=== PATIENT | female | born 1990 ===

== ENCOUNTER 2021-01-29 14:33 | Emergency (ER) | payer OTHER, SELFPAY ==
[2021-01-29 15:18] VITALS: BP 120/59; PULSE 78; RESP 18; TEMP 37.1; O2SAT 96; BMI 61.0
--- NOTE | 2021-01-29 16:52 | ED_ITS ---
HPI - Back Pain/Injury General Chief Complaint: Back Pain/Injury Stated Complaint: back pain Time Seen by Provider: 01/29/21 16:51 Source: patient Mode of arrival: ambulatory Limitations: no limitations History of Present Illness HPI Narrative: 31 y/o female with history of intermittent back pains and morbid obesity who is presenting with non-traumatic lower back pain for the last 3 days. 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 She reports after work 3 days ago she noticed lower back pain that is worse on the left and radiates down her buttock and upper left leg. She also reports some right sided middle thoracic back pain as well, worse with movement. She denies any specific injury. She has had pain like this before, it usually gets better with time. She took some aspirin without improvemnet. She denies weakness, numbness, tingling or incontinence. She denies fever or chills. No urinary symptoms. MD elicited complaint: back pain Pertinent past history: prior back pain Onset (ago): day(s) (3) Timing: intermittent Severity: moderate Similar Symptoms Previously: Yes Quality: spasming and throbbing Location: right flank, right lower back and left lower back Radiation: buttocks and left upper leg Exacerbating factors: movement and walking Relieving factors: immobilization Context: unknown Associated symptoms: difficulty walking and myalgias Treatments prior to arrival: heat therapy Related Data Previous Rx's Medication Instructions Recorded cyclobenzaprine 10 mg tablet 10 mg PO TID PRN #8 tab 01/29/21 ibuprofen 600 mg tablet 600 mg PO Q8H PRN #14 tab 01/29/21 lidocaine 5 % topical patch 1 patch TOPICAL DAILY #15 ea 01/29/21 (Lidoderm) Allergies Allergy/AdvReac Type Severity Reaction Status Date / Time aspirin Allergy Swelling Verified 01/29/21 15:18 Review of Systems Review of Systems: Constitutional: No Fever, No Chills Gastrointestinal: No Nausea, No Vomiting, No abdominal Pain Genitourinary: No Dysuria, No Urinary Frequency, No Hematuria Musculoskeletal: No joint pain, + Myalgias Skin: No Skin Lesions, No rash Neuro: No Weakness, No Numbness Heme/Lymph: No Bruising, No Lymphadenopathy Endocrine: No Polyuria, No Polydipsia PMFSH Social History Social History Advance Directives: No Advance Directives Information Provided: Yes Patient : No Physical Exam Vital Signs: Vital Signs: Last Vital Signs Temp 98.7 F 01/29/21 15:18 Pulse 78 01/29/21 15:18 Resp 18 01/29/21 15:18 BP 120/59 L 01/29/21 15:18 Pulse Ox 96 01/29/21 15:18 Body Mass Index 61.0 Appearance: Alert. Oriented X3. No acute distress. Eyes: Pupils equal, round and reactive to light. ENT: Pharynx normal. Neck: Normal inspection. CVS: Normal heart rate and rhythm. Pulses normal. Respiratory: No respiratory distress. Breath sounds normal. Abdomen: morbidly obese, Soft and non-tender. +BS x4 Back: normal inspection. Tenderness of the soft tissues of the bilateral lower lumbar area and left SI joint, right sided thoracic soft tissue tenderness, no CVA tenderness Skin: Skin warm and dry. Normal skin color. Normal skin turgor. No rashes. Extremities: No lower extremity edema. Neuro: Oriented X 3. No motor deficit. No sensory deficit. Normal DTRs. Normal gait Course Course Course Narrative: 31 yo morbidly obese female (BMI 61) presenting with non- traumatic lower back pain, acute on chronic. She has no red flag symptoms of LBP. She also has some mild right flank/right thoracic pain, most likely muscular as well. No urinary symptoms, fever, chills or abdominal pain. Will check UA. Reevaluation(s) Reevaluation #1: UA with 1+ blood. She is getting her menses. Doubt kidney stone. No infection on UA. She is stable for d/c home with treatment for muscular back pain. She was encouraged to f/u with PCP. MDM - Back Pain/Injury Lab Data Labs: Lab Results 01/29/21 Range/Units 17:09 Urine Color YELLOW Urine Appearance CLEAR Urine pH 7.5 (5.0-8.0) Ur Specific [place] 1.015 (1.005-1.025) Urine Protein NEG (NEG-TRACE) MG/DL Urine Glucose (UA) NEG (NEG) MG/DL Urine Ketones NEG (NEG) MG/DL Urine Blood 1+ H (NEG) Urine Nitrite NEG (NEG) Ur Leukocyte Esterase NEG (NEG) Urine RBC 1-4 (0) /HPF Urine WBC 0-2 (0-4) /HPF Ur Squamous Epith Cells TRACE /LPF Urine Bacteria NONE /LPF Urine Yeast TRACE /HPF Discharge Plan Discharge Clinical Impression: Strain of lumbar region Qualifiers: Encounter type: initial encounter Qualified Code(s): S39.012A - Strain of muscle, fascia and tendon of lower back, initial encounter Patient Disposition: Home, Self-Care Instructions: Low Back Strain (ED), Lower Back Exercises (ED) Additional Instructions: Your pain is most likely due muscle strain and spasm. No bending, lifting or twisting. Use ice several times per day for 20 minutes at a time for the next 48 hours and then change to heat. Take medications as prescribed to help with pain and discomfort. Follow up with your Primary Care Doctor this week. If your pain worsens, if you develop new numbness, tingling, weakness, loss of function or incontinence call 911 or come back to the ER right away for evaluation. Prescriptions: New cyclobenzaprine 10 mg tablet 10 mg PO TID PRN (Reason: muscle spasm) Qty: 8 RF: 0 ibuprofen 600 mg tablet 600 mg PO Q8H PRN (Reason: pain) Qty: 14 RF: 0 lidocaine [Lidoderm] 5 % adhesive patch,medicated 1 patch topical DAILY Qty: 15 RF: 0 Stand Alone Forms: Work/School Release Interventions: ED Discharge Assessment Last Done: 01/29/21 18:10 Discharge Date/Time: 01/29/21 18:12
[2021-01-29 17:26] LABS: Glucose Urine UA NEG (NEG); Leukocyte Esterase Urine NEG (NEG); Nitrite Urine NEG (NEG); PH 7.5 (5.0-8.0); Specific Gravity - Urine 1.015 (1.005-1.025); UACC Culture Trigger NO; Urine Blood 1+ (NEG); Urine Ketones NEG (NEG); Urine Protein NEG (NEG-TRACE)
[2021-01-29 17:32] LABS: Appearance Urine CLEAR; Color Urine YELLOW
[2021-01-29 17:51] LABS: Squamous Epithelial Cell Urine TRACE /LPF; WBC Urine 0-2 /HPF (0-4)
== END 2021-01-29 18:12 | disposition home or self-care (01) ==
PROVIDERS: Emergency Provider Emergency Medicine
DX: S39.012A Strain of muscle, fascia and tendon of lower back, initial encounter (principal); X50.3XXA Overexertion from repetitive movements, initial encounter; Y93.89 Activity, other specified; Y92.513 Shop (commercial) as the place of occurrence of the external cause; Y99.0 Civilian activity done for income or pay
CPT/HCPCS: 81001; 99282; 99283

== ENCOUNTER → 2021-06-03 07:53 | Outpatient (BNVA) | payer OTHER, SELFPAY | PROVIDERS: Visit Provider Physician Assistant | DX: E66.01 Morbid (severe) obesity due to excess calories (principal); Z68.44 Body mass index [BMI] 60.0-69.9, adult | CPT/HCPCS: 99202 ==

== ENCOUNTER 2021-06-13 07:59 | Outpatient (REF) | payer OTHER, SELFPAY ==
[2021-06-13 09:55] LABS: Basophils Percent Auto 0.4 % (0-2); Eosinophils Absolute Auto 0.5 X10*3/uL (0.0-0.4); Eosinophils Percent Auto 5.5 % (0-4); Hematocrit 39.4 % (37.0-47.0); Hemoglobin 13.3 g/dl (12.0-16.0); Imm Gran Abs Auto 0.02 X10*3/uL (0.00-0.03); Imm Gran Pct Auto 0.2 % (0.0-0.4); Lymphocytes Percent Auto 21.3 % (20-40); MANUAL DIFF FLAG SCAN; Mean Corpuscular HGB Conc 33.8 g/dl (31.0-35.0); Mean Corpuscular Hemoglobin 28.6 pg (27.0-33.0); Mean Corpuscular Volume 84.7 fL (80.0-98.0); Monocytes Absolute Auto 0.5 X10*3/uL (0.1-1.2); Monocytes Percent Auto 5.5 % (2-11); Neutrophils Absolute Auto 6.2 x10*3/uL (2.0-8.3); Neutrophils Percent Auto 67.1 % (45-73); PLT CLUMP 1; Red Blood Count 4.65 X10*6/uL (4.20-5.50); SCAN SMEAR FLAG 1
[2021-06-13 09:56] LABS: White Blood Count 9.3 X10*3/uL (4.8-10.8)
[2021-06-13 10:08] LABS: Estimated Average Glucose 126 mg/dL; Hemoglobin A1C 149.2182 umol/L
[2021-06-13 10:17] LABS: SLIDE REVIEW VERIFIED
[2021-06-13 10:18] LABS: Alanine Aminotransferase 33 U/L (0-31); Alkaline Phosphatase 61 U/L (39-117); Anion Gap 10 (12-20); Aspartate Amino Transferase 22 U/L (5-31); Bilirubin Total 0.7 mg/dL (0.0-1.0); Blood Urea Nitrogen 16 mg/dL (9-16); C Reactive Protein 3.72 mg/dL (< or = 0.50); Calcium 9.6 mg/dL (8.4-10.2); Carbon Dioxide 26 mmol/L (22-29); Chloride 106 mmol/L (96-108); Cholesterol 163 mg/dL; Estimated Glomerular Filt Rate > 60; Glucose Random 109 mg/dL (60-115); HDL Cholesterol 38 mg/dL; Iron 50 mcg/dL (30-160); LDL Cholesterol Calculated 108 mg/dl; Percent Iron Saturation 16 % (15-50); Potassium 4.1 mmol/L (3.3-5.1); Sodium 138 mmol/L (135-145); Total Iron Binding Capacity 311 mcg/dL (228-428); Total Protein 8.3 g/dL (6.5-8.0); Triglycerides 89 mg/dL; Unsaturated Iron Binding 261 ug/dL
[2021-06-13 10:36] LABS: HBsAGNum1 0.11 S/CO (0.00-0.99); HIV AB/AG Nonreactive (Nonreactive); HIV Num 1 0.08 S/CO (0.00-0.99); Hepatitis B Surface Antigen Negative (Negative); ~HepC Num1 0.15 S/CO (0.00-0.79); ~Hepatitis C Antibody Nonreactive (Nonreactive)
[2021-06-13 10:42] LABS: Ferritin 161 ng/mL (10-122); HCG Quantitative < 2 mIU/mL; Insulin 72 uU/mL (2-29); TSH reflex Free T4 1.85 uIU/mL (0.32-4.0); TSH reflex Free T4 1.89 uIU/mL (0.32-4.0); Vitamin D 25-OH Total 19.5 ng/mL (>30)
[2021-06-13 10:52] LABS: Folate 19.3 ng/mL (> or = 4.0); Vitamin B12 665 pg/mL (200-900)
[2021-06-13 15:17] LABS: CT PCR NOT DETECTED (Not Detect.); NG PCR NOT DETECTED (Not Detect.)
[2021-06-14 08:38] LABS: Syphilis Screen Nonreactive (Nonreactive)
[2021-06-14 08:41] LABS: BV Int Neg Control Negative (Negative); BV Int Pos Control Positive (Positive)
[2021-06-17 13:32] LABS: Calcium (PTHI) 9.6 mg/dL (8.6-10.2); PTHI 26 pg/mL (14-64)
[2021-06-18 02:11] LABS: Zinc 69 mcg/dL (60-130)
[2021-06-18 15:52] LABS: Testosterone, Free 3.6 pg/mL (0.1-6.4); Testosterone, Total 20 ng/dL (2-45)
[2021-06-18 16:01] LABS: Vitamin B1 7 nmol/L (8-30)
[2021-06-19 00:42] LABS: Vitamin A 40 mcg/dL (38-98)
[2021-06-19 08:51] LABS: HPV mRNA E6/E7 rflx Not Detected (Not Detected)
== END 2021-06-13 08:00 | disposition home or self-care (01) ==
LOC: HO.LAB 07:59
PROVIDERS: Physician Assistant; Visit Provider Obstetrics & Gynecology
DX: Z01.818 Encounter for other preprocedural examination (principal); Z01.411 Encounter for gynecological examination (general) (routine) with abnormal findings; Z11.51 Encounter for screening for human papillomavirus (HPV); Z11.4 Encounter for screening for human immunodeficiency virus [HIV]; E66.01 Morbid (severe) obesity due to excess calories; N93.9 Abnormal uterine and vaginal bleeding, unspecified; L68.0 Hirsutism; N76.0 Acute vaginitis; N84.1 Polyp of cervix uteri
CPT/HCPCS: 36415; 57500; 80053; 80061; 82306; 82607; 82728; 82746; 83036; 83498; 83525; 83540; 83970; 84402; 84403; 84425; 84443; 84590; 84630; 84702; 85025; 86140; 86780; 86803; 87340; 87389; 87480; 87491; 87510; 87591; 87624; 87660; 88142; 88305; 99202

== ENCOUNTER → 2021-06-19 08:15 | Outpatient (BNVA) | payer OTHER, SELFPAY | PROVIDERS: Visit Provider Dietitian, Registered | DX: E66.01 Morbid (severe) obesity due to excess calories (principal) | CPT/HCPCS: 97802 ==

== ENCOUNTER 2021-06-28 | Outpatient (REF) | payer OTHER, SELFPAY ==
[2021-07-01 14:24] LABS: H Pylori Breath Test Negative (Negative)
== END 2021-06-28 00:01 | disposition home or self-care (01) ==
LOC: HO.LNP
PROVIDERS: Visit Provider Physician Assistant
DX: Z01.818 Encounter for other preprocedural examination (principal); E66.01 Morbid (severe) obesity due to excess calories
CPT/HCPCS: 83013

== ENCOUNTER 2021-06-28 08:56 | Outpatient (REF) | payer OTHER, SELFPAY ==
--- NOTE | ~2021-06-28 | XR_ITS ---
EXAMINATION: XR CHEST CLINICAL INFORMATION: Z01.818 - Encounter for other preprocedural examination. Bariatric service evaluation. COMPARISON: None TECHNIQUE: 2 views of the chest were obtained. FINDINGS: The lungs are clear. There is no airspace consolidation or groundglass opacity or effusion. The costophrenic sulci are well-defined. The heart is normal in size and the hilar and mediastinal contours are normal. There is mild curvature at thoracolumbar spine. XR/XR chest 2V IMPRESSION: Unremarkable examination.
== END 2021-06-28 08:57 | disposition home or self-care (01) ==
LOC: HO.XRAY 08:56
PROVIDERS: Visit Provider Physician Assistant
DX: Z01.818 Encounter for other preprocedural examination (principal); E66.01 Morbid (severe) obesity due to excess calories; E55.9 Vitamin D deficiency, unspecified; Z68.44 Body mass index [BMI] 60.0-69.9, adult; Z71.3 Dietary counseling and surveillance
CPT/HCPCS: 71046; 99211; 99212

== ENCOUNTER 2021-07-03 08:49 | Outpatient (REF) | payer OTHER, SELFPAY ==
--- NOTE | ~2021-07-03 | US_ITS ---
EXAMINATION: US PELVIS TRANSVAGINAL CLINICAL INFORMATION: Abnormal uterine bleeding with irregular menstrual periods. Vaginal bleeding. COMPARISON: None TECHNIQUE: Transcutaneous and transvaginal pelvic ultrasound. Transvaginal scanning was performed after voiding to better evaluate the endometrium and adnexa. FINDINGS: The uterus measures 8.1 x 4.1 x 4.7 cm. The uterus is anteflexed. Cervical nabothian cysts are present. The uterine contour is smooth. The endometrium is prominent and measures 1.4 cm. The endometrium has a heterogeneous appearance without focal polyp identified. No focal abnormalities within the myometrium. The right ovary is not identified. No suspicious right adnexal masses appreciated. The left ovary measures 2.7 x 1.3 x 1.5 cm. The calculated left ovarian volume is approximately 2.7 mL. No left adnexal suspicious findings. Normal vascularity. No significant free pelvic fluid. US/US pelvic and transvaginal IMPRESSION: Thickened endometrium with a heterogeneous appearance but no focal polyp identified.
== END 2021-07-03 08:50 | disposition home or self-care (01) ==
LOC: HO.HMGCX 08:49
PROVIDERS: Visit Provider Obstetrics & Gynecology
DX: N93.9 Abnormal uterine and vaginal bleeding, unspecified (principal)
CPT/HCPCS: 76830; 76856

== ENCOUNTER 2021-07-04 08:35 | Outpatient (REF) | payer OTHER, SELFPAY ==
[2021-07-04 10:09] LABS: Hematocrit 40.9 % (37.0-47.0); Hemoglobin 13.5 g/dl (12.0-16.0); Mean Corpuscular Hemoglobin 28.1 pg (27.0-33.0); Mean Corpuscular Volume 85.2 fL (80.0-98.0); Mean Platelet Volume 10.5 fL (9.4-12.3); Platelet Count 265 X10*3/uL (160-400); Red Cell Distribution Width 14.8 % (11.0-16.0); White Blood Count 7.9 X10*3/uL (4.8-10.8)
[2021-07-05 06:37] LABS: DHEA Sulfate 88 mcg/dL (23-266)
== END 2021-07-04 08:36 | disposition home or self-care (01) ==
LOC: HO.LAB 08:35
PROVIDERS: Visit Provider Obstetrics & Gynecology
DX: Z01.411 Encounter for gynecological examination (general) (routine) with abnormal findings (principal); L68.0 Hirsutism; N93.9 Abnormal uterine and vaginal bleeding, unspecified; N84.1 Polyp of cervix uteri; R87.615 Unsatisfactory cytologic smear of cervix
CPT/HCPCS: 36415; 82627; 85027; 88142; 99212

== ENCOUNTER 2021-07-16 08:15 | Outpatient (REF) | payer OTHER, SELFPAY ==
[2021-07-23 21:16] LABS: Cortisol Free, 24 Hr Urine 13.6 mcg/24 h (4.0-50.0); Creatinine, 24 Hr Urine 1.38 g/24 h (0.50-2.15); Total Volume, 24 Hr Urine 1725 mL
== END 2021-07-16 08:16 | disposition home or self-care (01) ==
LOC: HO.LNP 08:15
PROVIDERS: Visit Provider Obstetrics & Gynecology
DX: L68.0 Hirsutism (principal)
CPT/HCPCS: 82530

== ENCOUNTER 2021-07-17 11:40 | Outpatient (REF) | payer OTHER, SELFPAY | END 2021-07-17 11:41 | disposition home or self-care (01) | LOC: HO.LNP 11:40 | PROVIDERS: Visit Provider Obstetrics & Gynecology | DX: Z13.89 Encounter for screening for other disorder (principal) ==

== ENCOUNTER 2021-07-19 07:15 | Day surgery (SDC) | payer OTHER, SELFPAY ==
[2021-07-12 14:56] VITALS: BMI 61.0
--- NOTE | 2021-07-18 10:06 | HO.ANESPROP2 ---
Documented by User: Philomena Baxter NP 07/18/21 10:08 HPI - Anesthesia Eval Consult details Narrative: 31yo F for D&C Hysteroscopy,poss polypectomy,poss myomectomy PMFSH Active Problems Active Problems: All Active Problems (Updated 07/12/21 @ 14:56 by Hien Julien RN) Morbid obesity (Acute) Pre-op evaluation (Acute) Abnormal uterine bleeding (AUB) (Acute) Hirsutism (Acute) Vaginitis (Acute) Endocervical polyp (Acute) Vitamin D deficiency (Acute) Unsatisfactory cervical Papanicolaou smear (Acute) Past Medical History Medical History Medical history unknown Family History Family History Mother Diabetes Hypertension Seizures Liver problem Amputated left leg Father Diabetes Hypertension Liver problem Sister Diabetes Sister Diabetes Sister Diabetes Hypertension Surgical History Surgical History No history of previous surgery Social History Social History Alcohol intake: current Alcohol intake frequency: holidays/special occasions only Patient Tobacco Use Status: Never used Tobacco Advance Directives Information Provided: Yes (brochure mailed) Advance Directives on File: No Meds Allergies Allergy/AdvReac Type Severity Reaction Status Date / Time aspirin Allergy Swelling Verified 07/19/21 07:39 Exam Exam Date and Time: July 18, 2021 1006 Height,Weight and Vital Signs: Height 5 ft 5 in Weight 166.468 kg Pertinent Lab Results Pertinent Lab Results: Laboratory Tests 06/13/21 07/04/21 09:27 09:48 WBC 7.9 Hgb 13.5 Hct 40.9 Plt Count 265 Sodium 138 Potassium 4.1 Chloride 106 Carbon Dioxide 26 BUN 16 Creatinine 0.63 Assessment and Plan Assessment Anesthesia Assessment: Chart Reviewed Documented by User: Kelby Valentine MD 07/19/21 08:10 [facility] Past Medical History Medical History Medical history unknown Family History Family History Mother Diabetes Hypertension Seizures Liver problem Amputated left leg Father Diabetes Hypertension Liver problem Sister Diabetes Sister Diabetes Sister Diabetes Hypertension Family history of problems with anesthesia: No Surgical History Surgical History No history of previous surgery History of Problems with Anesthesia: No Social History Social History Alcohol intake: current Alcohol intake frequency: holidays/special occasions only Patient Tobacco Use Status: Never used Tobacco Advance Directives Information Provided: Yes (brochure mailed) Advance Directives on File: No Meds Allergies Allergy/AdvReac Type Severity Reaction Status Date / Time aspirin Allergy Swelling Verified 07/19/21 07:39 Exam Airway Mallampati Class: III TM Dist: >3cm Neck ROM: Full Assessment and Plan Assessment Anesthesia Assessment: Anesthesia Plan Discussed Final Anesthetic Review Family History of Problems with Anesthesia: No History of Problems with Anesthesia: No NPO: Yes ASA Class: III Final Preanesthetic Review: No Changes in Pt Med Stat, Meds/Allgs Chart Reviewed, Consent Obtained/Reviewed and Anes Risks/Benef Reviewed Patient Risk: Intermediate Procedure Risk: Low Anesthetic Plan Anesthetic Plan: GA Disposition: Standard PACU
[2021-07-19 07:34] LABS: UPreg QC Valid YES; Urine Pregnancy NEGATIVE (NEGATIVE)
[2021-07-19 07:53] VITALS: BP 133/55; PULSE 91; RESP 16; TEMP 36.8; O2SAT 94
[2021-07-19] MEDS: Lactated Ringers 1,000 ML 100 ML IVCONT (08:08)
--- NOTE | 2021-07-19 08:46 | MHC.SHP ---
Pre-Procedural Eval Section A Date of Service: 07/19/21 The patient is an INPATIENT: No Changes since office visit: No Cold of Flu in the past 2 weeks, No New Medical Problems, No Changes in Medication and No Patient answered all questions The History & Physical has been completed within 30 days and I have reviewed it.: Yes Section B Chief Complaint: abnormal uterine and vaginal bleeding Allergies: Allergies Allergy/AdvReac Type Severity Reaction Status Date / Time aspirin Allergy Swelling Verified 07/19/21 07:39 Plan Diagnosis/Plan: Unchanged I have reviewed the history and physical and performed a pertinent physical examination on my patient. No changes have occurred unless specified.
--- NOTE | 2021-07-19 09:35 | P.BOP_ITS ---
Brief Operative Note Date of Service: 07/19/21 Pre-op diagnosis: Abnormal uterine bleeding Post-op diagnosis: same (Same plus normal uterine endocervical cavity) Procedure: Hysteroscopy D&C Surgeon: Octaviano Kan MD Anesthesia: MAC Was an Preschool Teacher'S Assistant used for this Procedure?: No Estimated blood loss (mL): 0 Pathology: other (Endometrial Scrapping. Polyp) Condition: stable Disposition: PACU
--- NOTE | 2021-07-19 09:36 | P.OP_ITS ---
Operative Note Operative Note Date of Service: 07/19/21 Narrative: Preop Diagnosis: Abnormal uterine bleeding Operation: Diagnostic Hysteroscopy, Dilataion & Curettage Post Op Diagnosis: Normal endometrial and endocervical cavity QBL: Minimal Anesthesia: MAC Surgeon: Octaviano Kan MD Building Code Administrator: None Complication: None Pathology: Endometrial Scrapings Procedure: The patient was put in the dorsal lithotomy position, scrubbed, and draped in the usual manner. A sterile speculum was inserted in the patient's vagina. The anterior lip of the cervix was grasped with a single tooth tenaculum. The cervix was dilated up to 5 mm, then the scope was inserted in the patient's uterus. Inspection revealed normal endometrial/endocervical cavity. The Myosure Reach device was used; sharp curettings was carried on retrieving moderate amount of tissues At the end of the procedure, all instruments were taken out of the patient uterine and vaginal cavity. The single tooth tenaculum was removed and homeostasis was assured using pressure, The patient tolerated the procedure well and was transferred to the PACU in a stable condition.
[2021-07-19 09:41] VITALS: BP 118/60; PULSE 96; RESP 20; TEMP 36.9; O2SAT 98
[2021-07-19 09:46] VITALS: BP 126/60; PULSE 92; RESP 20; O2SAT 97
[2021-07-19 09:51] VITALS: BP 120/68; PULSE 91; RESP 18; O2SAT 95
[2021-07-19 09:56] VITALS: BP 114/63; PULSE 95; RESP 20; O2SAT 96
[2021-07-19 10:11] VITALS: BP 109/57; PULSE 89; RESP 20; TEMP 36.7; O2SAT 97
== END 2021-07-19 10:45 | disposition home or self-care (01) ==
PROVIDERS: Nurse Practitioner; Visit Provider Obstetrics & Gynecology
PROC: 0UDB8ZZ Extraction of Endometrium, Via Natural or Artificial Opening Endoscopic (ICD-10-PCS; CPT 58558; principal; 2021-07-19 08:50)
DX: N93.9 Abnormal uterine and vaginal bleeding, unspecified (principal); N84.1 Polyp of cervix uteri; R87.615 Unsatisfactory cytologic smear of cervix; Z88.8 Allergy status to other drugs, medicaments and biological substances
CPT/HCPCS: 58558; 81025; 88305; J1100; J2250; J2405; J3010

== ENCOUNTER → 2021-07-22 08:12 | Outpatient (BNVA) | payer OTHER, SELFPAY | PROVIDERS: Visit Provider Physician Assistant ==

== ENCOUNTER 2021-07-23 08:23 | Outpatient (REF) | payer OTHER, SELFPAY ==
--- NOTE | ~2021-07-23 | FL_ITS ---
EXAMINATION: FL UPPER GI AIR-CONTRAST SERIES CLINICAL INFORMATION: Obesity. Preop. COMPARISON: None. TECHNIQUE: Routine upper GI air-contrast study was performed in upright and lying positions. FINDINGS: Following oral administration of thick barium and effervescent granules, there is normal propagation of bolus from the oral cavity through the pharynx and esophagus and into the stomach without any evidence of obstruction, narrowing or stricture. On placing patient supine and prone lying, the course, caliber and peristalsis of the stomach, gallbladder wall and the sweep are normal. There is moderate gastroesophageal reflux with a small sliding hiatal hernia. The mucosal pattern of the stomach, duodenal bulb and the sweep is normal. FLUOROSCOPY TIME: 1.2 minutes DOSE AREA PRODUCT: 46.834 uGy-m2 (microgray-meter squared) FL/FL upper GI series IMPRESSION: Moderate gastroesophageal reflux with small sliding hiatal hernia.
--- NOTE | ~2021-07-23 | US_ITS ---
EXAMINATION: US COMPLETE ABDOMEN WITH LIVER ELASTOGRAPHY CLINICAL INFORMATION: Obesity. Preop. COMPARISON: None. TECHNIQUE: Real-time imaging of the abdominal viscera. Noninvasive ultrasound liver fibrosis assessment is performed using Pascale ElastPQ point quantification shear wave elastography (2D-SWE) with a C5-2 MHz transducer. Multiple elastography samples are obtained. FINDINGS: PANCREAS: Normal. The visualized pancreatic head and body are normal in appearance. The remainder of the pancreas is obscured from visualization by the overlying bowel gas. ABDOMINAL AORTA: The proximal, middle, and distal aortic segments are normal in caliber. INFERIOR VENA CAVA: Visualized portions are normal. LIVER: The liver demonstrates normal size, contour and increased echogenicity. No focal lesion or intrahepatic biliary duct dilatation. The right lobe measures 16.4 cm in length. The left lobe measures 13.2 cm in length. Portal flow is hepatopedal. Shear wave liver elastography median stiffness is 1.55 m/s (reference: normal median stiffness is 1.3 m/s or less). IQR/median stiffness to assess sampling precision is 0.19 (reference: good quality data set is IQR/median stiffness of 0.15 or less). GALLBLADDER: Normal. The gallbladder is physiologically distended without evidence of stones, sludge, polyps, wall thickening or pericholecystic fluid. COMMON BILE DUCT: Normal in caliber measuring 0.3 cm in diameter. RIGHT KIDNEY: Normal. No hydronephrosis. No renal calculi or focal parenchymal lesions. The kidney measures 11.9 cm in maximum dimension. LEFT KIDNEY: Normal. No hydronephrosis. No renal calculi or focal parenchymal lesions. The kidney measures 10.6 cm in maximum dimension. SPLEEN: Normal. The spleen measures 10.5 cm in maximum dimension. FREE FLUID: None. US/US abdomen comp w elastography IMPRESSION: 1. Diffuse hepatic steatosis without focal lesion. 2. The rest of the abdominal ultrasound is unremarkable. 3. Liver elastography: Median liver stiffness 1.55 m/s suggestive of cACLD (ruled out). REFERENCE: Society of Radiologists in Ultrasound Liver Stiffness Thresholds (2019): LIVER STIFFNESS THRESHOLDS: *Liver Stiffness equal or less than 1.3 m/s: High probability of being normal. *Liver Stiffness less than 1.7 m/s: In the absence of other known clinical signs, rules out compensated advanced chronic liver disease. *Liver Stiffness 1.7-2.1 m/s: Suggestive of compensated advanced chronic liver disease but need further test for confirmation. *Liver Stiffness over 2.1 m/s: Rules in compensated advanced chronic liver disease. *Liver Stiffness over 2.4 m/s: Suggestive of clinically significant portal hypertension. QUALITY OF DATA SET: *IQR/Median value equal or less than 0.15 implies a quality data set. *IQR/Median value over 0.15 implies a poor quality data set. SIGNIFICANT CHANGE FROM PRIOR EXAM: Significant change if liver stiffness measurement is 10% or greater from prior exam. OTHER CONSIDERATIONS: The stage of liver fibrosis may be overestimated in the setting of acute hepatitis, liver inflammation, elevated liver function tests, hepatic vascular congestion, obstructive cholestasis, non-fasting state, and infiltrative diseases such as amyloidosis and lymphoma. In some patients with NAFLD, the liver stiffness thresholds for compensated advanced chronic liver disease may be lower. In causes other than viral hepatitis and NAFLD, liver stiffness thresholds are not well established.
--- NOTE | 2021-07-23 09:39 | ECG_ITS ---
Test Reason : OBESITY Blood Pressure : / mmHG Vent. Rate : 066 BPM Atrial Rate : 066 BPM P-R Int : 130 ms QRS Dur : 086 ms QT Int : 388 ms P-R-T Axes : 019 040 032 degrees QTc Int : 406 ms Normal sinus rhythm Normal ECG No previous ECGs available Referred By: Marilu Alcantar Electronically Signed By:Tomas Vazquez
== END 2021-07-23 08:24 | disposition home or self-care (01) ==
LOC: HO.US 08:23
PROVIDERS: Visit Provider Physician Assistant
DX: Z01.818 Encounter for other preprocedural examination (principal); E66.01 Morbid (severe) obesity due to excess calories
CPT/HCPCS: 74240; 76705; 76981; 93005

== ENCOUNTER → 2021-07-24 14:58 | Outpatient (BNVA) | payer OTHER, SELFPAY | PROVIDERS: Visit Provider Obstetrics & Gynecology ==

== ENCOUNTER 2021-07-25 11:42 | Outpatient (REF) | payer OTHER, SELFPAY ==
[2021-07-27 09:51] LABS: HPV mRNA E6/E7 rflx Not Detected (Not Detected)
== END 2021-07-25 11:43 | disposition home or self-care (01) ==
LOC: HO.LAB 11:42
PROVIDERS: Visit Provider Obstetrics & Gynecology
DX: R87.615 Unsatisfactory cytologic smear of cervix (principal)
CPT/HCPCS: 57454; 87624; 88142; 88305

== ENCOUNTER → 2021-07-29 08:11 | Outpatient (BNVA) | payer OTHER, SELFPAY | PROVIDERS: Referring Provider Physician Assistant; Visit Provider Dietitian, Registered | DX: E66.01 Morbid (severe) obesity due to excess calories (principal); Z68.43 Body mass index [BMI] 50.0-59.9, adult; N85.02 Endometrial intraepithelial neoplasia [EIN]; R87.615 Unsatisfactory cytologic smear of cervix | CPT/HCPCS: 97803; Q3014 ==

== ENCOUNTER → 2021-08-22 08:14 | Outpatient (BNVA) | payer OTHER, SELFPAY | PROVIDERS: Referring Provider Physician Assistant; Visit Provider Dietitian, Registered ==

== ENCOUNTER → 2021-09-09 11:15 | Outpatient (BNVA) | payer OTHER, SELFPAY | PROVIDERS: Visit Provider Physician Assistant | DX: E66.01 Morbid (severe) obesity due to excess calories (principal); Z68.43 Body mass index [BMI] 50.0-59.9, adult | CPT/HCPCS: 99212 ==

== ENCOUNTER → 2021-09-11 08:52 | Outpatient (BNVA) | payer OTHER, SELFPAY | PROVIDERS: Visit Provider Dietitian, Registered | DX: Z13.89 Encounter for screening for other disorder (principal) | CPT/HCPCS: 97803 ==

== ENCOUNTER → 2021-10-11 09:25 | Outpatient (BNVA) | payer OTHER, SELFPAY | PROVIDERS: Visit Provider Physician Assistant | DX: E66.01 Morbid (severe) obesity due to excess calories (principal); Z68.43 Body mass index [BMI] 50.0-59.9, adult | CPT/HCPCS: 99212 ==

== ENCOUNTER → 2021-10-16 07:51 | Outpatient (BNVA) | payer OTHER, SELFPAY | PROVIDERS: Visit Provider Surgery | DX: Z13.89 Encounter for screening for other disorder (principal) ==

== ENCOUNTER → 2021-11-08 08:46 | Outpatient (BNVA) | payer OTHER, SELFPAY | PROVIDERS: Visit Provider Surgery | DX: Z13.89 Encounter for screening for other disorder (principal) ==

== ENCOUNTER → 2021-11-15 08:13 | Outpatient (BNVA) | payer OTHER, SELFPAY | PROVIDERS: Visit Provider Surgery | DX: Z13.89 Encounter for screening for other disorder (principal) ==

== ENCOUNTER 2021-11-19 06:04 | Inpatient (IN) | payer OTHER, SELFPAY ==
[2021-11-12 10:03] VITALS: BMI 53.4
[2021-11-14 11:38] LABS: MANUAL DIFF FLAG NO
[2021-11-14 11:48] LABS: Basophils Percent Auto 0.4 % (0-2); Eosinophils Absolute Auto 0.6 X10*3/uL (0.0-0.4); Eosinophils Percent Auto 7.5 % (0-4); Hematocrit 41.4 % (37.0-47.0); Imm Gran Abs Auto 0.02 X10*3/uL (0.00-0.03); Imm Gran Pct Auto 0.2 % (0.0-0.4); Lymphocytes Absolute Auto 1.9 X10*3/uL (1.2-4.9); Lymphocytes Percent Auto 22.7 % (20-40); Mean Corpuscular HGB Conc 33.8 g/dl (31.0-35.0); Mean Corpuscular Volume 82.8 fL (80.0-98.0); Mean Platelet Volume 10.8 fL (9.4-12.3); Monocytes Absolute Auto 0.6 X10*3/uL (0.1-1.2); Monocytes Percent Auto 6.6 % (2-11); Neutrophils Absolute Auto 5.3 x10*3/uL (2.0-8.3); Neutrophils Percent Auto 62.6 % (45-73); Platelet Count 273 X10*3/uL (160-400); Red Cell Distribution Width 14.8 % (11.0-16.0); White Blood Count 8.5 X10*3/uL (4.8-10.8)
[2021-11-14 11:53] LABS: INTERNATIONAL NORM RATIO 1.2 (0.9-1.1); Prothrombin Time 13.9 SEC (9.9-13.0)
[2021-11-14 11:54] LABS: Estimated Average Glucose 103 mg/dL; Hemoglobin A1c % 5.2 %
[2021-11-14 11:55] LABS: Partial Thromboplastin Time 43.6 SEC (24.1-38.0)
[2021-11-14 12:12] LABS: Alanine Aminotransferase 42 U/L (0-31); Albumin Level 4.1 g/dL (3.5-5.0); Alkaline Phosphatase 63 U/L (39-117); Anion Gap 14 (12-20); Aspartate Amino Transferase 30 U/L (5-31); Bilirubin Total 0.8 mg/dL (0.0-1.0); Blood Urea Nitrogen 10 mg/dL (9-16); C Reactive Protein 4.03 mg/dL (< or = 0.50); Calcium 9.9 mg/dL (8.4-10.2); Carbon Dioxide 23 mmol/L (22-29); Chloride 104 mmol/L (96-108); Cholesterol 181 mg/dL; Creatinine Clr Calc Pharmacy 177.5; Estimated Glomerular Filt Rate > 60; Glucose Random 90 mg/dL (60-115); HDL Cholesterol 28 mg/dL; LDL Cholesterol Calculated 139 mg/dl; Potassium 4.5 mmol/L (3.3-5.1); Sodium 136 mmol/L (135-145); Total Protein 8.3 g/dL (6.5-8.0); Triglycerides 74 mg/dL
[2021-11-14 12:37] LABS: Insulin 25 uU/mL (2-29); TSH reflex Free T4 1.66 uIU/mL (0.32-4.0)
--- NOTE | 2021-11-16 12:57 | MHC.SHP ---
Pre-Procedural Eval Section A Date of Service: 11/16/21 The patient is an INPATIENT: Yes The History & Physical has been completed within 30 days and I have reviewed it.: Yes Section B Chief Complaint: obesity Relevant Family History (Specify if Yes): No Relevant Social History: None Present Medications: None Medical History: No relevant PMH History of Previous Operations: No relevant previous surgery Allergies: Allergies Allergy/AdvReac Type Severity Reaction Status Date / Time aspirin Allergy Swelling Verified 11/15/21 12:55 Review of Systems Sugical H&P ROS: Negative: Constitution, Cardiovascular, Respiratory, Neurological, Psychiatric, Hem-Onc, Allergic/Immunologic, Gastrointestinal, Genitourinary, Musculoskeletal, Integumentary, Endocrine and Eyes/Ears/Nose/Throat Exam Surgical H&P Exam: Normal: HEENT, Normal: Heart, Normal: Lungs, Normal: Extremities, Normal: Abdomen, Normal: Skin and Normal: Neurological Plan Diagnosis/Plan: Unchanged I have reviewed the history and physical and performed a pertinent physical examination on my patient. No changes have occurred unless specified.
--- NOTE | 2021-11-18 09:53 | P.CONAN_ITS ---
Documented by User: Philomena Baxter NP 11/18/21 09:54 HPI - Anesthesia Eval Consult details Narrative: 31yo F for Gastrectomy Sleeve,EGD,poss diaphragmatic hernia,poss ventral hernia,poss open, PMFSH Active Problems Active Problems: All Active Problems (Updated 11/12/21 @ 09:47 by Jahaira Valdivia RN) Morbid obesity (Acute) Pre-op evaluation (Acute) Abnormal uterine bleeding (AUB) (Acute) Hirsutism (Acute) Vaginitis (Acute) Endocervical polyp (Acute) Vitamin D deficiency (Acute) Unsatisfactory cervical Papanicolaou smear (Acute) EIN (endometrial intraepithelial neoplasia) (Acute) Prediabetes (Acute) GERD (gastroesophageal reflux disease) (Acute) Past Medical History Medical History (Updated 11/12/21 @ 09:47 by Jahaira Valdivia RN) Abnormal uterine bleeding (AUB) GERD (gastroesophageal reflux disease) Obese Prediabetes Family History Family History Mother Diabetes Hypertension Seizures Liver problem Amputated left leg Father Diabetes Hypertension Liver problem Sister Diabetes Sister Diabetes Sister Diabetes Hypertension Family history of problems with anesthesia: No Surgical History Surgical History (Updated 11/12/21 @ 09:34 by Jahaira Valdivia RN) History of hysteroscopy History of Problems with Anesthesia: No Social History Social History Are you a primary pharmacy customer care specialist to a significant other at home: No Do you presently have visiting nurse or other home services: No Alcohol intake: current Alcohol intake frequency: holidays/special occasions only Patient Tobacco Use Status: Never used Tobacco Use of substances other than those prescribed or required for medical reasons: No Have you been hit, kicked, punched, or otherwise hurt by someone within the past year? If so, by whom?: No Are you DNR?: No Advance Directives: No Advance Directives Information Provided: Yes (Mailed with pre-op instructions) Advance Directives on File: No Recently lost weight without trying: No How much weight loss: 34pounds or more Eating poorly because of decreased appetite: No Nutrition screen score: 4 Nutrition Risks: No Nutritional Risk Patient : No FDLMP: Irreg Bleeding : No Meds Allergies Allergy/AdvReac Type Severity Reaction Status Date / Time aspirin Allergy Swelling Verified 11/15/21 12:55 Exam Exam Date and Time: November 18, 2021 0953 Height,Weight and Vital Signs: Height 5 ft 5 in Weight 145.603 kg Pertinent Lab Results Pertinent Lab Results: Laboratory Tests 11/14/21 11/14/21 11/14/21 11:30 11:30 11:30 WBC 8.5 RBC 5.00 Hgb 14.0 Hct 41.4 MCV 82.8 MCH 28.0 MCHC 33.8 RDW 14.8 Plt Count 273 MPV 10.8 Immature Gran % (Auto) 0.2 Neut % (Auto) 62.6 Lymph % (Auto) 22.7 [place] % (Auto) 6.6 Eos % (Auto) 7.5 H Baso % (Auto) 0.4 Lymph # (Auto) 1.9 [place] # (Auto) 0.6 Eos # (Auto) 0.6 H Baso # (Auto) 0.0 Abs Immat Gran (auto) 0.02 Absolute Neuts (auto) 5.3 Absolute Nucleated RBC 0.000 Nucleated RBC % (auto) 0.0 PT 13.9 H INR 1.2 H APTT 43.6 H Sodium 136 Potassium 4.5 Chloride 104 Carbon Dioxide 23 Anion Gap 14 BUN 10 Creatinine 0.67 Estim Creat Clear Calc 177.5 Estimated GFR > 60 Random Glucose 90 Estimat Average Glucose Hemoglobin A1c % Insulin Level 25 Calcium 9.9 Total Bilirubin 0.8 AST 30 ALT 42 H Alkaline Phosphatase 63 C-Reactive Protein 4.03 H Total Protein 8.3 H Albumin 4.1 Triglycerides 74 Cholesterol 181 LDL Cholesterol, Calc 139 HDL Cholesterol 28 D TSH 1.66 Blood Type Antibody Screen 11/14/21 11/14/21 11:30 11:30 WBC RBC Hgb Hct MCV MCH MCHC RDW Plt Count MPV Immature Gran % (Auto) Neut % (Auto) Lymph % (Auto) [place] % (Auto) Eos % (Auto) Baso % (Auto) Lymph # (Auto) [place] # (Auto) Eos # (Auto) Baso # (Auto) Abs Immat Gran (auto) Absolute Neuts (auto) Absolute Nucleated RBC Nucleated RBC % (auto) PT INR APTT Sodium Potassium Chloride Carbon Dioxide Anion Gap BUN Creatinine Estim Creat Clear Calc Estimated GFR Random Glucose Estimat Average Glucose 103 Hemoglobin A1c % 5.2 Insulin Level Calcium Total Bilirubin AST ALT Alkaline Phosphatase C-Reactive Protein Total Protein Albumin Triglycerides Cholesterol LDL Cholesterol, Calc HDL Cholesterol TSH Blood Type O Negative Antibody Screen NEGATIVE Narrative Narrative: EKG 07/2021 Vent. Rate : 066 BPM ? ? Atrial Rate : 066 BPM ?? P-R Int : 130 ms? QRS Dur : 086 ms ? ? QT Int : 388 ms ? ? ? P-R-T Axes : 019 040 032 degrees ?? QTc Int : 406 ms ? Normal sinus rhythm Normal ECG No previous ECGs available Assessment and Plan Assessment Anesthesia Assessment: Chart Reviewed Final Anesthetic Review Family History of Problems with Anesthesia: No History of Problems with Anesthesia: No Documented by User: Ganesh Lester MD 11/19/21 07:15 [facility] Past Medical History Medical History (Updated 11/12/21 @ 09:47 by Jahaira Valdivia RN) Abnormal uterine bleeding (AUB) GERD (gastroesophageal reflux disease) Obese Prediabetes Family History Family History Mother Diabetes Hypertension Seizures Liver problem Amputated left leg Father Diabetes Hypertension Liver problem Sister Diabetes Sister Diabetes Sister Diabetes Hypertension Surgical History Surgical History (Updated 11/12/21 @ 09:34 by Jahaira Valdivia RN) History of hysteroscopy Social History Social History Are you a primary pharmacy customer care specialist to a significant other at home: No Do you presently have visiting nurse or other home services: No Alcohol intake: current Alcohol intake frequency: holidays/special occasions only Patient Tobacco Use Status: Never used Tobacco Use of substances other than those prescribed or required for medical reasons: No Have you been hit, kicked, punched, or otherwise hurt by someone within the past year? If so, by whom?: No Are you DNR?: No Advance Directives: No Advance Directives Information Provided: Yes (Mailed with pre-op instructions) Advance Directives on File: No Recently lost weight without trying: No How much weight loss: 34pounds or more Eating poorly because of decreased appetite: No Nutrition screen score: 4 Nutrition Risks: No Nutritional Risk Patient : No FDLMP: Irreg Bleeding : No Meds Allergies Allergy/AdvReac Type Severity Reaction Status Date / Time aspirin Allergy Swelling Verified 11/15/21 12:55 Exam Airway Mallampati Class: III TM Dist: >3cm Neck ROM: Full Loose/Missing/Broken Teeth: No Heart: rrr+[id number] Lungs: cta b/l Assessment and Plan Assessment Anesthesia Assessment: Anesthesia Plan Discussed Final Anesthetic Review NPO: Yes ASA Class: III Final Preanesthetic Review: No Changes in Pt Med Stat, Meds/Allgs Chart Reviewed, Consent Obtained/Reviewed and Anes Risks/Benef Reviewed Patient Risk: Intermediate Procedure Risk: Intermediate Assessment/Block/Sedation in SS: Assess/Block/Sedation-SS Anesthetic Plan Anesthetic Plan: GA and Agree w/ Assess. and Plan Disposition: Standard PACU
[2021-11-18 13:13] LABS: COVID-19 Test Negative (Negative); IDNOW Serial# 16C4AD1C
[2021-11-19] VITALS (15 sets, daily range): BP systolic 103–143; BP diastolic 54–87; PULSE 62–97; RESP 16–20; TEMP 36.2–36.8; O2SAT 92–100
--- NOTE | 2021-11-19 06:39 | PHA.MEDREC ---
Pharmacy Consult ? Medication Reconciliation Pharmacy has reviewed the medication reconciliation completed by nursing. Shelia Redmond, ArtD
[2021-11-19 06:58] LABS: UPreg QC Valid YES; Urine Pregnancy NEGATIVE (NEGATIVE)
--- NOTE | 2021-11-19 07:43 | P.BOP_ITS ---
Brief Operative Note Date of Service: 11/19/21 Pre-op diagnosis: Morbid obesity with comorbidities (see below) Post-op diagnosis: same Procedure: INITIAL PATIENT BMI ON PRESENTATION AT OUR OFFICE: 62.7 kg/m2 LAST BMI BEFORE SURGERY: 56.7 kg/m2 COMORBIDITIES: Prediabetes, liver steatosis, liver fibrosis, GERD, diaphragmatic hernia ?The patient presented to the Weight Management Program with significant obesity that was negatively impacting the patient's comorbidities as listed above.? The program is a phased program with a special focus on preoperative medical weight management to promote substantial weight loss and prepare the patients for the second phase of the program: bariatric surgery. The patient participated in an intensive weekly lifestyle ?intervention and exercise program during which the patient ?has lost between the initial office visit and the last preoperative visit 56.7lbs, or 15.04% of initial actual body weight. It was deemed appropriate for the patient to now have bariatric surgery. In light of the current Covid-19 pandemic and the well documented strong association of obesity and increased risk of worse outcomes if infected with Covid-19 (REFERENCES: https://pubmed.ncbi.nlm.nih.gov/25839257/ ,? https://pubmed.ncbi.nlm.nih.gov/02794954/ ), any delay in undergoing bariatric surgery may lead to the patient's worsening health condition and increased?risk of more severe Covid-19 disease if infected. In addition a recent?study from [facility] published in [facility] on 06/10/2021 ([email or web address]) found that, among patients with obesity, substantial weight loss achieved with surgery was associated with improved outcomes of COVID-19 infection. The findings suggest that obesity can be a modifiable risk factor for the severity of COVID-19 infection. In addition, the patient met the BMI-criteria for bariatric surgery based on the BMI on initial presentation. The patient should not be penalized for achieving such weight loss because ?it is not sustainable long-term without surgical intervention and it was achieved in preparation for bariatric surgery ?under my direction and based on my published research ([email or web address]).[email or web address] and? https://www.soard.org/article/A6408-7405(93)06869-X/pdf ) ?that a 10% preo perative weight loss improves long-term weight loss after surgery and reduces perioperative complications.? Insurance carriers such as [facility] have endorsed my recommendations ?and have included in their policies criteria to include a 10% preoperative weight loss requirement. PROCEDURE: Esophago-gastroscopy, laparoscopic sleeve gastrectomy and laparoscopic gastropexy INDICATIONS: This is a 31 year-old female who was electively scheduled for laparoscopic, possibly open sleeve gastrectomy. The risks and complications of the procedure were discussed with the patient in advance, particularly the pos sibility of ; pulmonary embolism; staple line leak; bleeding; GERD; cardiac, pulmonary, or renal complications; as well as long-term problems such as insufficient weight loss, vitamin deficiency, strictures, or ulcers. The patient understood all the risks, and was in agreement to proceed with surgery. DESCRIPTION OF PROCEDURE: After informed consent was obtained from the patient, the patient was given preoperative antibiotics, and was transferred to the operating room. After successful induction of general anesthesia, pneumatic compression devices were placed on both lower extremities. An upper endoscopy was performed next. The oropharynx and esophagus appeared to be within normal limits. There was no diaphragmatic hernia present. The stomach was entered. Then after all fluid and air were suctioned and the stomach was fully decompressed, the scope was withdrawn and secured in the mid esophagus. The patient was then prepped and draped in the usual sterile manner, and abdominal access was established at the right upper quadrant with the Sienna technique. A 12 mm blunt port was inserted, and the abdomen was insufflated with CO2 to a pressure of 15 mmHg. Under direct visualization, additional ports were placed, specifically two 5 mm Versi-step ports to the left upper quadrant, and a 5 mm Versi-Step port to the right upper quadrant. 1% lidocaine plain was used to infiltrate all port sites as well as all fascia defects. Following that, the patient was placed in a steep reverse Trendelenburg position. An additional 5 mm port was placed to the right flank for the Mediflex retractor that was used to retract the left lobe of the liver. The gastro-esophageal fat pad was opened with the ultrasonic device (Thunderbeat, Olympus) and the anterior esophagus and hiatus were exposed. The angle of His was opened with the ultrasonic device the fundus of the stomach from any diaphragmatic and splenic attachments. I then opened the gastrocolic ligament between the transverse colon and the greater curvature of the stomach with the ultrasonic device to enter the lesser sac and facilitate the ligation of the short gastric vessels. I started at a mid-point along the greater curvature and using the Thunderbeat, all short gastric vessels were divided all the way to the angle of His until the left girma was completely dissected at its entirety. I then divided the gastro-colic ligament distally to a distance of about 3-4 cm proximal to the pylorus. The stomach was then divided transversely with one Endo SHANNAN-45 purple, one SHANNAN- 45 orange load and four SHANNAN-60 articulating orange loads using the AEON stapler and loads. Every effort was made that the gastric sleeve had a tubular shape and an even caliber throughout. Once the sleeve resection was completed, the staple line of the gastric sleeve was reinforced with Hemoclips. The resected stomach was retrieved without difficulty from the Sienna port. A gastropexy was then performed in order to prevent postoperative GERD and partial gastric volvulus. Several interrupted 2.0 Surgidac sutures were placed between the sleeve's staple line and the previously divided greater omentum and gastro-colic ligament using the Endo-Stitch device. ?An upper endoscopy was performed. There was no narrowing at the GE junction. The scope was easily advanced all the way to the pylorus which was clearly visualized. There was no narrowing anywhere and the sleeve's caliber was even throughout. The sleeve's staple line was inspected and there was no evidence of ischemia, bleeding or dehiscence. At that point the gastroscope was withdrawn from the patient?s mouth while we were decompressing the bowel and the stomach from any remaining air. I looked into the lesser sac to see how the sleeve was situating and it was sit uating well. There was no bleeding from the staple line, spleen, or short gastric vessels. The Mediflex retractor was removed, and the undersurface of the liver was inspected and there was no bleeding. The patient was placed in supine position. I closed the fascial defect of the 12 mm port site with a figure of eight #1 Polysorb suture. Then 100 cc 0.25 % Marcaine plain with 10 mg of Dexamethasone were used to infiltrate the fascial closure as well as all skin incisions. At this point, the abdomen was deflated, all ports were removed under direct vision, and no bleeding was noted from any of the port sites. The skin incisions were irrigated with saline and were closed with 4-0 absorbable monofilament sutures. Steri-Strips and OpSites were used to cover all incisions. The patient was extubated and was transferred in stable condition to the recovery room for further care. I was present and performed all ellis parts of the procedure. Ms. Alcantar was the plastic surgery assistant. There were no residents to assist with this case. Pedro Garcia MD, PhD, FACS Surgeon: John Garcia MD Anesthesia: GETA, local and other (TAP block) Was an Support Engineer used for this Procedure?: No Support Engineer: Marilu Alcantar Estimated blood loss (mL): 10 IV fluids (mL): 3,000 Urine output (mL): 0 (No Balderas to record) Pathology: other (Stomach) Condition: stable Disposition: PACU
--- NOTE | 2021-11-19 07:46 | PM.PNGS ---
Subjective Subjective Date of Service: 11/20/21 Interval history: Patient has mild incisional pain, but was able to ambulate and use the incentive spirometer. She is tolerating phase 1 bariatric diet Physical Exam Vital Signs: Vital Signs: Last Vital Signs Temp 98.2 F 11/19/21 06:57 Pulse 84 11/19/21 06:57 Resp 18 11/19/21 06:57 BP 103/55 L 11/19/21 06:57 Pulse Ox 96 11/19/21 06:57 BMI result Body Mass Index 53.4 GI: Inspection: Yes normal to inspection, Yes incision (clean, dry and intact) and Yes obesity Extrem: Right lower extremity: normal to inspection (no calf tenderness) Left lower extremity: normal to inspection (no calf tenderness) Objective Data Active Medications Fentanyl (Fentanyl Citrate/Pf 100 Mcg/2 Ml Vial) 50 mcg IVPUSH Q5M PRN; Protocol PRN Reason: Pain, Moderate (Pain Scale 4-6 Hydromorphone HCl (Hydromorphone Hcl 0.5 Mg/0.5 Ml Syringe) 0.5 mg IVPUSH Q5M PRN; Protocol PRN Reason: Pain, Severe (Pain Scale 7-10) Lactated Ringer's (Lr) 1,000 mls @ 999 mls/hr IV .Q1H1M JUAN JOSE Stop: 11/19/21 08:15 Lactated Ringer's (Lr) 1,000 mls @ 100 mls/hr IVCONT .Q10H JUAN JOSE Promethazine HCl 6.25 mg/ (Sodium Chloride) 50.25 mls @ 201 mls/hr IV ONCE PRN PRN Reason: Nausea and Vomiting Ondansetron HCl (Ondansetron Hcl 4 Mg/2 Ml Vial) 4 mg IVPUSH ONCE PRN PRN Reason: Nausea and Vomiting Oxycodone HCl (Oxycodone Hcl Immed Release 5 Mg Tablet) 10 mg PO ONCE PRN PRN Reason: Pain, Mild (Pain Scale 1-3) Labs CBC & Chem 7: 11/20/21 03:52 11/20/21 03:52 Labs: Laboratory Results - last 24 hr 11/18/21 11/19/21 12:45 06:10 Urine Test NEGATIVE COVID-19 (PIERRE) Negative COVID-19 Clin Com See Note Procedures Date of Service Date of Service: 11/20/21 Progress Note: A&P Assessment and plan (1) Morbid obesity: Status: Acute Assessment and Plan: s/p laparoscopic sleeve gastrectomy and gastropexy Doing well Check am labs. If OK, will discharge home? (2) Hirsutism: Status: Acute (3) GERD (gastroesophageal reflux disease): Status: Acute (4) Steatosis, liver: Status: Acute (5) Liver fibrosis: Status: Acute (6) Diaphragmatic hernia: Status: Acute (7) S/P laparoscopic sleeve gastrectomy: Status: Acute Time Spent With Patient Time: Total time spent is greater than 50% in coordination of care (as documented) at patient's floor/unit and/or counseling patient: Quality Stroke Does the patient have a stroke diagnosis?: No VTE Prior VTE?: No VTE Risk Level:: Surgical - moderate VTE Device Contraindication: N/A - Device Ordered VTE Drug Contraindication: Treatment Not Indicated
[2021-11-19] MEDS: ceFAZolin Sodium/Dextrose,Iso 2 GM/50 ML PIGGYBACK IV ×2 (08:02→14:14)
--- NOTE | 2021-11-19 10:41 | P.DS_ITS ---
DS: Providers Provider Date of Service: 11/20/21 Date of admission: 11/19/21 06:04 Primary care physician: None Physician DS: Diagnosis Discharge Diagnosis (1) Morbid obesity: Status: Acute (2) Hirsutism: Status: Acute (3) GERD (gastroesophageal reflux disease): Status: Acute (4) Steatosis, liver: Status: Acute (5) Liver fibrosis: Status: Acute (6) Diaphragmatic hernia: Status: Acute DS: Summary Hospital Course Hospital Course: ADMITTING DIAGNOSIS: morbid obesity, GERD DISCHARGE DIAGNOSIS: same, s/p laparoscopic sleeve gastrectomy PAST SURGICAL HISTORY: hysteroscopy PROCEDURE: upper endoscopy, laparoscopic sleeve gastrectomy DISCHARGE SUMMARY: History of Present Illness: The patient is a 31 year-old woman with a BMI of 62.7 kg/m2 and associated co- morbidities as described above. The patient had extensive work-up,lost 56.7 lbs preoperatively and was electively scheduled for laparoscopic, possible open sleeve gastrectomy and gastropexy. Risks and complications of the surgery were discussed with the patient in advance, particularly the possibility of , pulmonary embolism, anastomotic leak, bleeding, bowel injury, GERD, cardiac, renal or pulmonary complications. The patient understood all the risks and was in agreement with the surgical plan. Hospital Course: The patient underwent an uneventful laparoscopic sleeve gastrectomy with gastropexy on the day of admission. Postoperatively, the patient was transferred to the surgical floor. The patient received IV Acetaminophen and IV dilaudid for pain control. Patient was started on bariatric phase 1 diet POD #0. On postoperative day one, the patient was feeling well without nausea, vomiting, fevers, or tachycardia. The patient had some mild incisional pain and the abdomen was soft. On the morning of postoperative day one, the patient was continued on 1 ounce of water or ice every half hour. During the day, the patient did fairly well, having some incisional pain, but able to ambulate adequately and to tolerate liquids well. Since the patient is doing well, we decided that the patient was ready to be discharged. The patient was given instructions to follow-up with me next week and to call my office for any fever over 101, persistent abdominal pain, nausea, vomiting, GERD, symptoms of DVT such as calf tenderness, or leg swelling, or pulmonary embolism such as chest pain or shortness of breath. The patient was also instructed to drink 40-60 ounces of liquids per day using the 1-ounce cups. The patient had been given prescriptions for Tylenol for pain, Zofran prn for nausea, and pantoprazole and carafate previously. The patient was encouraged to ambulate and use the incentive spirometer. The patient was allowed to shower, but no baths, and encouraged to stay active at home. All of these instructions were given to the patient personally. All questions were answered and the patient understood all instructions, the instructions were also given to the patient in print. Time Spent with Patient Time attestation: Total time spent providing and/or coordinating discharge services: Discharge coordination time: Less than 30 minutes Quality: Safe Use of Opioids Does Pt have an Active Cancer Diagnosis on the Problem List?: No Quality: Stroke Does the patient have a stroke diagnosis?: No Physical Exam Vital Signs: Vital Signs: Last Vital Signs Temp 98.2 F 11/19/21 06:57 Pulse 84 11/19/21 06:57 Resp 18 11/19/21 06:57 BP 103/55 L 11/19/21 06:57 Pulse Ox 96 11/19/21 06:57 BMI result Body Mass Index 53.4 DS: Data Data Completed and Pending Pending studies at discharge: Pending at discharge 11/19/21 10:00 Surgical [PTH] Routine Labs on day of discharge: Laboratory Results - last 24 hr 11/18/21 11/19/21 12:45 06:10 Urine Test NEGATIVE COVID-19 (PIERRE) Negative COVID-19 Clin Com See Note Discharge Plan Discharge Anticipated Discharge Date/Time: 11/20/21 10:38 Patient Disposition: Home, Self-Care Discharge Diagnosis: s/p sleeve gastrectomy Referrals: Physician,None [Primary Care Provider] - 1 Week Discharge Medications: Continued pantoprazole 40 mg tablet,delayed release (DR/EC) 40 mg PO DAILY Qty: 30 2RF sucralfate 100 mg/mL suspension 10 ml PO BID Qty: 400 2RF ondansetron HCl 4 mg tablet 4 mg PO Q12H Qty: 20 0RF Discontinued cholecalciferol (vitamin D3) 1,250 mcg (50,000 unit) capsule 1,250 mcg PO QWEEK Qty: 12 3RF thiamine HCl (vitamin B1) 50 mg tablet 50 mg PO DAILY Qty: 30 6RF polyethylene glycol 3350 [Miralax] 17 gram powder in packet 17 g PO DAILY Qty: 14 0RF Rx Instructions: Do 7 packets mixing each one with 8oz water on 11/17/21 and another 7 packets on 11/18/21 Discharge Orders: Discharge Order (Routine); Ordered 11/20/21 Ordered By: John Garcia Diet: other Activity on Discharge: No heavy lifting Stand Alone Forms: Patient Portal Discharge page Care Plan Goals: weight loss Health Concerns: morbid obesity Plan of Treatment: No tub baths, sex or returning to work until discussed at first post op appointment. No exercise, alcohol, tobacco or illegal drug use. Continue to use incentive spirometer hourly while awake. Walk in home for 5- 10 minutes every 2 hours during the first week. Continue phase 1 diet today and start phase 2 diet tomorrow morning. Follow all instructions in the bariatric handbook and call with any questions. 1. Please call your doctor or come back to the emergency room should any new symptoms arise. 2. You will receive a courtesy call from [facility] 24-48 hours after discharge. 3. Activity: abstain from alcohol, practice limited stair climbing, no bending, no driving, no exercise, no illicit substances, no lifting, no sex, no tub bath, no work. 4. Diet: continue as discussed with Dr. Garcia. 5. Dressing Change/Wound Care: Do not change or remove surgical dressings unless they are wet or soiled. 6. Call your doctor if: - Your temperature exceeds 101.5 F - You experience excessive pain or swelling - You have an unexpected reaction to medication - You have excessive bleeding - You experience continued vomiting/nausea - Your incision begins to separate - Your incision shows signs of infection such as increased redness, swelling, excessive pain, heat, or drainage (light blood or clear fluid is normal) 7. General instructions: No lifting greater than 5 lbs for the next 4 weeks[address] driving within 24 hours of taking narcotic pain medications. If you do not move your bowels in the next 2 days, please take milk of magnesia over the counter. Please follow the post op diet and do not advance your diet until you are seen in the office in about 2 weeks. Please walk around your home every hour or two to prevent blood clots from forming in your legs. You do not need to wake from sleeping to walk. Please sleep in a bed or couch to prevent kinking at the hips and knees. Please take your incentive spirometer (your lung supervisor nutritional yeast) home with you and use it for the next few days to prevent pneumonias. You may shower, no hot tubs, baths or swimming pools. Please call the office with any questions or concerns such as increasing abdominal pain, fever, chills, shortness of breath, chest pain, leg pain or swelling, or redness or drainage from your incisions. Do not hesitate to contact the office with any questions at . The patient's medical history has been reviewed and they are considered low risk for post op DVT and therefore DVT prophylaxis is not considered necessary. Travel after surgery was reviewed. The patient has not disclosed any travel plans during the first 30 days after surgery and they have been advised that within the first 30 days after surgery any bus, plane, train or car travel over 2 hours in duration is contraindicated due to the possibility of developing blood clots from immobility. Any travel, needs to include periods of ambulation of 10 minutes in duration every 2 hours. The patient was instructed to discuss any plans for travel during this period with their bariatric surgeon. Assessment: stable post op sleeve gastrectomy Discharge Date/Time: 11/20/21 09:12
[2021-11-19 10:57] LABS: Hematocrit 39.3 % (37.0-47.0)
[2021-11-19] MEDS: Famotidine/PF 20 MG/2 ML VIAL IVPUSH ×2 (11:19→19:54)
[2021-11-19 11:21] LABS: Anion Gap 15 (12-20); Blood Urea Nitrogen 9 mg/dL (9-16); Calcium 8.7 mg/dL (8.4-10.2); Carbon Dioxide 20 mmol/L (22-29); Chloride 106 mmol/L (96-108); Creatinine Clr Calc Pharmacy 177.5; Estimated Glomerular Filt Rate > 60; Glucose Random 126 mg/dL (60-115); Potassium 4.3 mmol/L (3.3-5.1); Sodium 137 mmol/L (135-145)
[2021-11-19] MEDS: Lactated Ringers 1,000 ML 100 ML IVCONT ×2 (14:15→22:57)
[2021-11-19] MEDS: ondansetron HCL 4 MG/2 ML VIAL IVPUSH ×2 (15:13→22:57)
[2021-11-19] MEDS: 0.9 % Sodium Chloride Flush 3 ML SYRINGE IVFLUSH (19:54)
[2021-11-20 03:13] VITALS: BP 128/56; PULSE 59; RESP 18; TEMP 36.4; O2SAT 96
[2021-11-20 03:59] LABS: MANUAL DIFF FLAG NO
[2021-11-20 04:00] LABS: Basophils Percent Auto 0.1 % (0-2); Eosinophils Percent Auto 0.1 % (0-4); Hematocrit 35.4 % (37.0-47.0); Hemoglobin 12.1 g/dl (12.0-16.0); Imm Gran Abs Auto 0.05 X10*3/uL (0.00-0.03); Imm Gran Pct Auto 0.4 % (0.0-0.4); Lymphocytes Absolute Auto 1.1 X10*3/uL (1.2-4.9); Lymphocytes Percent Auto 9.5 % (20-40); Mean Corpuscular HGB Conc 34.2 g/dl (31.0-35.0); Mean Corpuscular Hemoglobin 28.1 pg (27.0-33.0); Mean Corpuscular Volume 82.3 fL (80.0-98.0); Mean Platelet Volume 10.9 fL (9.4-12.3); Monocytes Absolute Auto 0.6 X10*3/uL (0.1-1.2); Monocytes Percent Auto 4.7 % (2-11); Neutrophils Absolute Auto 10.2 x10*3/uL (2.0-8.3); Neutrophils Percent Auto 85.2 % (45-73); Platelet Count 251 X10*3/uL (160-400)
[2021-11-20 06:58] LABS: Anion Gap 12 (12-20); Blood Urea Nitrogen 6 mg/dL (9-16); Calcium 8.8 mg/dL (8.4-10.2); Carbon Dioxide 24 mmol/L (22-29); Chloride 106 mmol/L (96-108); Creatinine Clr Calc Pharmacy 180.2; Estimated Glomerular Filt Rate > 60; Glucose Random 112 mg/dL (60-115); Potassium 4.1 mmol/L (3.3-5.1); Sodium 138 mmol/L (135-145)
[2021-11-20] MEDS: ondansetron HCL 4 MG/2 ML VIAL IVPUSH (07:03)
[2021-11-20] MEDS: 0.9 % Sodium Chloride Flush 3 ML SYRINGE IVFLUSH (07:07)
[2021-11-20 08:00] VITALS: BP 99/49; PULSE 54; RESP 18; TEMP 35.5; O2SAT 98
--- NOTE | 2021-11-20 09:08 | MHC.CM.PN ---
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 D/C PLAN: HOME TODAY SELF-CARE W/FOLLOW-UP APPT 11/26 AT 2:30 PM.
--- NOTE | 2021-11-20 11:22 | HO.POSTANES ---
Post Anesthesia Evaluation Post Anesthesia Evaluation Vital Signs: Vital Signs Temp Pulse Resp BP Pulse Ox O2 Del Method 11/20/21 08:00 95.9 F L 54 18 99/49 L 98 Room Air 11/20/21 07:08 Room Air 11/20/21 03:13 97.6 F 59 18 128/56 L 96 Room Air Anesthesia: General Endotracheal-GETA Mental Status: Awake Pain Control: Satisfactory Nausea/Vomiting: None Hydration: Adequate Anesthesia-Related Issues: No Anes. Related Issues
== END 2021-11-20 09:12 | disposition home or self-care (01) | DRG 403 ==
LOC: HO.SSSA 10:41 → HO.S3 13:18
PROVIDERS: Nurse Practitioner; Physician Assistant; Physician Assistant Surgical; Admitting Provider Surgery; Visit Provider Surgery
PROC: 0DB64Z3 Excision of Stomach, Percutaneous Endoscopic Approach, Vertical (ICD-10-PCS; CPT 43845; principal; 2021-11-19 07:30)
DX: E66.01 Morbid (severe) obesity due to excess calories (principal); K74.00 Hepatic fibrosis, unspecified; K21.9 Gastro-esophageal reflux disease without esophagitis; K76.0 Fatty (change of) liver, not elsewhere classified; L68.0 Hirsutism; Z88.6 Allergy status to analgesic agent; Z20.822 Contact with and (suspected) exposure to COVID-19; Z68.43 Body mass index [BMI] 50.0-59.9, adult
CPT/HCPCS: 36415; 80048; 80053; 80061; 81025; 83036; 83525; 84443; 85014; 85018; 85025; 85610; 85730; 86140; 86850; 86900; 86901; 87635; 88307; 88342; 99024; A4649; C9088; J0131; J0690; J1100; J1170; J2250; J2405; J2550; J3010

== ENCOUNTER → 2021-12-11 13:43 | Outpatient (BNVA) | payer OTHER, SELFPAY | PROVIDERS: Visit Provider Dietitian, Registered | DX: E66.01 Morbid (severe) obesity due to excess calories (principal); Z68.43 Body mass index [BMI] 50.0-59.9, adult; Z98.84 Bariatric surgery status; Z71.3 Dietary counseling and surveillance | CPT/HCPCS: 97803 ==

== ENCOUNTER → 2021-12-19 13:59 | Outpatient (BNVA) | payer OTHER, SELFPAY | PROVIDERS: Referring Provider Physician Assistant Surgical; Visit Provider Dietitian, Registered | DX: E66.01 Morbid (severe) obesity due to excess calories (principal); Z68.43 Body mass index [BMI] 50.0-59.9, adult; Z98.84 Bariatric surgery status; Z71.3 Dietary counseling and surveillance | CPT/HCPCS: 97803 ==

== ENCOUNTER → 2022-01-03 13:54 | Outpatient (BNVA) | payer OTHER, SELFPAY | PROVIDERS: Referring Provider Surgery; Visit Provider Dietitian, Registered | DX: E66.01 Morbid (severe) obesity due to excess calories (principal); Z68.42 Body mass index [BMI] 45.0-49.9, adult | CPT/HCPCS: 97803 ==

== ENCOUNTER → 2022-01-17 14:15 | Outpatient (BNVA) | payer OTHER, SELFPAY | PROVIDERS: Referring Provider Surgery; Visit Provider Dietitian, Registered | DX: E66.01 Morbid (severe) obesity due to excess calories (principal); Z68.42 Body mass index [BMI] 45.0-49.9, adult | CPT/HCPCS: 97803 ==

== ENCOUNTER → 2022-02-06 11:08 | Outpatient (BNVA) | payer OTHER, SELFPAY | PROVIDERS: Referring Provider Surgery; Visit Provider Dietitian, Registered | DX: E66.9 Obesity, unspecified (principal); Z68.42 Body mass index [BMI] 45.0-49.9, adult; Z98.84 Bariatric surgery status; Z71.3 Dietary counseling and surveillance | CPT/HCPCS: 97803 ==

== ENCOUNTER → 2022-02-14 13:30 | Outpatient (BNVA) | payer OTHER, SELFPAY | PROVIDERS: Visit Provider Dietitian, Registered | DX: E66.01 Morbid (severe) obesity due to excess calories (principal) | CPT/HCPCS: 97803 ==

== ENCOUNTER → 2022-03-21 14:38 | Outpatient (BNVA) | payer OTHER, SELFPAY | PROVIDERS: Visit Provider Dietitian, Registered | DX: E66.01 Morbid (severe) obesity due to excess calories (principal); Z68.41 Body mass index [BMI] 40.0-44.9, adult | CPT/HCPCS: 97803 ==

== ENCOUNTER → 2022-04-17 14:30 | Outpatient (BNVA) | payer OTHER, SELFPAY | PROVIDERS: Visit Provider Dietitian, Registered | DX: E66.01 Morbid (severe) obesity due to excess calories (principal); Z68.41 Body mass index [BMI] 40.0-44.9, adult | CPT/HCPCS: 97803 ==

== ENCOUNTER 2022-05-05 10:46 | Outpatient (REF) | payer OTHER, SELFPAY ==
[2022-05-14 04:57] LABS: HPV mRNA E6/E7 rflx Not Detected (Not Detected)
== END 2022-05-05 10:47 | disposition home or self-care (01) ==
LOC: HO.LNP 10:46
PROVIDERS: Visit Provider Obstetrics & Gynecology
DX: Z01.419 Encounter for gynecological examination (general) (routine) without abnormal findings (principal); Z11.51 Encounter for screening for human papillomavirus (HPV)
CPT/HCPCS: 87624; 88142

== ENCOUNTER 2022-05-20 08:31 | Outpatient (REF) | payer OTHER, SELFPAY ==
[2022-05-20 09:42] LABS: MANUAL DIFF FLAG NO
[2022-05-20 09:57] LABS: Basophils Percent Auto 0.5 % (0-2); Eosinophils Absolute Auto 0.8 X10*3/uL (0.0-0.4); Eosinophils Percent Auto 9.7 % (0-4); Hematocrit 40.9 % (37.0-47.0); Hemoglobin 14.2 g/dl (12.0-16.0); Imm Gran Abs Auto 0.03 X10*3/uL (0.00-0.03); Imm Gran Pct Auto 0.4 % (0.0-0.4); Lymphocytes Absolute Auto 1.8 X10*3/uL (1.2-4.9); Lymphocytes Percent Auto 22.9 % (20-40); Mean Corpuscular HGB Conc 34.7 g/dl (31.0-35.0); Mean Corpuscular Hemoglobin 30.1 pg (27.0-33.0); Mean Corpuscular Volume 86.7 fL (80.0-98.0); Mean Platelet Volume 11.1 fL (9.4-12.3); Monocytes Absolute Auto 0.5 X10*3/uL (0.1-1.2); Monocytes Percent Auto 5.9 % (2-11); Neutrophils Absolute Auto 4.9 x10*3/uL (2.0-8.3); Neutrophils Percent Auto 60.6 % (45-73); Platelet Count 235 X10*3/uL (160-400); Red Blood Count 4.72 X10*6/uL (4.20-5.50); Red Cell Distribution Width 13.2 % (11.0-16.0)
[2022-05-20 10:35] LABS: Estimated Average Glucose 97 mg/dL
[2022-05-20 13:34] LABS: Alanine Aminotransferase 24 U/L (0-31); Albumin Level 4.1 g/dL (3.5-5.0); Alkaline Phosphatase 78 U/L (39-117); Anion Gap 10 (12-20); Aspartate Amino Transferase 20 U/L (5-31); Bilirubin Direct 0.4 mg/dL (0.0-0.5); Bilirubin Total 1.2 mg/dL (0.0-1.0); Blood Urea Nitrogen 8 mg/dL (9-16); C Reactive Protein 7.24 mg/dL (< or = 0.50); Calcium 9.3 mg/dL (8.4-10.2); Carbon Dioxide 27 mmol/L (22-29); Chloride 109 mmol/L (96-108); Cholesterol 168 mg/dL; Estimated Glomerular Filt Rate > 60; Ferritin 257 ng/mL (10-122); Glucose Random 87 mg/dL (60-115); HDL Cholesterol 36 mg/dL; Insulin 14 uU/mL (2-29); Iron 96 mcg/dL (30-160); LDL Cholesterol Calculated 118 mg/dl; Percent Iron Saturation 44 % (15-50); Potassium 4.1 mmol/L (3.3-5.1); Sodium 142 mmol/L (135-145); TSH reflex Free T4 1.41 uIU/mL (0.32-4.0); Total Iron Binding Capacity 218 mcg/dL (228-428); Total Protein 7.9 g/dL (6.5-8.0); Triglycerides 71 mg/dL; Unsaturated Iron Binding 122 ug/dL; Vitamin D 25-OH Total 67.7 ng/mL (>30)
[2022-05-20 14:00] LABS: Folate 18.5 ng/mL (> or = 4.0); Vitamin B12 1099 pg/mL (200-900)
[2022-05-22 14:14] LABS: Calcium (PTHI) 9.7 mg/dL (8.6-10.2); PTHI 40 pg/mL (16-77)
[2022-05-23 22:58] LABS: Vitamin A 22 mcg/dL (38-98)
[2022-05-24 08:28] LABS: Zinc 79 mcg/dL (60-130)
[2022-05-24 12:58] LABS: Vitamin B1 9 nmol/L (8-30)
== END 2022-05-20 08:32 | disposition home or self-care (01) ==
LOC: HO.LAB 08:31
PROVIDERS: Visit Provider Physician Assistant Surgical
DX: R10.11 Right upper quadrant pain (principal); E66.01 Morbid (severe) obesity due to excess calories; Z98.84 Bariatric surgery status
CPT/HCPCS: 36415; 80053; 80061; 82248; 82306; 82607; 82728; 82746; 83036; 83525; 83540; 83970; 84425; 84443; 84590; 84630; 85025; 86140; 99212

== ENCOUNTER → 2022-06-10 08:23 | Outpatient (BNVA) | payer OTHER, SELFPAY | PROVIDERS: Visit Provider Dietitian, Registered | DX: E66.01 Morbid (severe) obesity due to excess calories (principal); Z68.41 Body mass index [BMI] 40.0-44.9, adult; R73.03 Prediabetes; Z71.3 Dietary counseling and surveillance | CPT/HCPCS: 97803 ==

== ENCOUNTER 2022-06-25 08:08 | Outpatient (REF) | payer OTHER, SELFPAY ==
--- NOTE | ~2022-06-25 | FL_ITS ---
EXAMINATION: FL UPPER GI SERIES CLINICAL INFORMATION: 32-year-old, prior gastric sleeve. Heartburn. Z98.84 - Bariatric surgery status COMPARISON: Upper GI series, 07/23/2021. Abdominal ultrasound 07/23/2021 TECHNIQUE: Upper GI series is performed using fluoroscopic evaluation in addition to multiple fluoroscopic spot views. The patient is imaged both upright and prone and using both thick and thin barium sulfate along with effervescent granules. Barium pill challenge also performed. Fluoroscopy time: 1.3 minutes DAP: 22.321 Gycm2 Fluoroscopic spot images: 19 FINDINGS: There is normal esophageal motility. There is no obstruction, stricture, or ulceration. There is prompt transit of swallowed barium pill from mouth to stomach without delay. There is intermittent small sliding hiatal hernia during prone Valsalva maneuver. Moderate spontaneous gastroesophageal reflux is seen during fluoroscopy to proximal to mid thoracic esophagus. Prior gastric sleeve surgery. No thickening of folds or ulcer crater. No gastric outlet obstruction. The duodenal bulb is pliable and shows no ulceration or scarring. Upper jejunal mucosal pattern are unremarkable. FL/FL upper GI w air IMPRESSION: -Moderate spontaneous gastroesophageal reflux. -Intermittent small sliding hiatal hernia during prone Valsalva maneuver. -Prior gastric sleeve surgery. No ulceration or gastric outlet obstruction.
== END 2022-06-25 08:09 | disposition home or self-care (01) ==
LOC: HO.XRAY 08:08
PROVIDERS: Visit Provider Physician Assistant Surgical
DX: R10.11 Right upper quadrant pain (principal); E66.01 Morbid (severe) obesity due to excess calories; Z98.84 Bariatric surgery status
CPT/HCPCS: 74246

== ENCOUNTER 2022-07-04 07:55 | Outpatient (REF) | payer OTHER, SELFPAY ==
--- NOTE | ~2022-07-04 | US_ITS ---
EXAMINATION: US COMPLETE ABDOMEN WITH LIVER ELASTOGRAPHY CLINICAL INFORMATION: Z98.84 - RUQ Pain COMPARISON: None. TECHNIQUE: Real-time imaging of the abdominal viscera. Noninvasive ultrasound liver fibrosis assessment is performed using Pascale ElastPQ point quantification shear wave elastography (2D-SWE) with a C5-2 MHz transducer. Multiple elastography samples are obtained. FINDINGS: PANCREAS: The pancreas is normal in size and echogenicity. Pancreatic tail is partly obscured by bowel gas and not completely imaged. There is no pancreatic ductal distention or retroperitoneal effusion. ABDOMINAL AORTA: The proximal, middle, and distal aortic segments are normal in caliber. INFERIOR VENA CAVA: Visualized portions are normal. LIVER: The liver is normal in size and smooth in contour. There is mild increased hepatic parenchymal echogenicity consistent with hepatic steatosis. No focal hepatic parenchymal lesion or intrahepatic ductal dilatation. The right lobe measures 13.2 cm in length. The left lobe measures 9.5 cm in length. Portal flow is towards the liver (hepatopetal). Shear wave liver elastography median stiffness is 1.35 m/s (reference: normal median stiffness is 1.3 m/s or less). IQR/median stiffness to assess sampling precision is 0.14 (reference: good quality data set is IQR/median stiffness of 0.15 or less). GALLBLADDER: The gallbladder is distended normally and shows no wall thickening or pericholecystic fluid. Sonographic negative Mathews's sign. There are no visible mobile calculi or dependent spine. There are 2 small gallbladder polyps injected into the lumen, each approximately 3 mm. COMMON BILE DUCT: Normal in caliber measuring 0.5 cm in diameter. RIGHT KIDNEY: Normal. No hydronephrosis. No renal calculi or focal parenchymal lesions. The kidney measures 12.0 cm in maximum dimension. LEFT KIDNEY: Normal. No hydronephrosis. No renal calculi or focal parenchymal lesions. The kidney measures 11.6. cm in maximum dimension. SPLEEN: Normal. The spleen measures 10.8 cm in maximum dimension. FREE FLUID: None. US/US abdomen comp w elastography IMPRESSION: 1. Hepatic steatosis. 2. Liver elastography: In the absence of other known clinical signs, measurements rule out compensated advanced chronic liver disease. If there are known clinical signs, further testing may be needed for confirmation. 3. Two tiny gallbladder polyps, each around 3 mm. No mobile calculi or sludge. No ductal dilatation. REFERENCE: Society of Radiologists in Ultrasound Liver Stiffness Thresholds (2020): LIVER STIFFNESS THRESHOLDS: *Liver Stiffness equal or less than 1.3 m/s: High probability of being normal. *Liver Stiffness less than 1.7 m/s: In the absence of other known clinical signs, rules out compensated advanced chronic liver disease. *Liver Stiffness 1.7-2.1 m/s: Suggestive of compensated advanced chronic liver disease but need further test for confirmation. *Liver Stiffness over 2.1 m/s: Rules in compensated advanced chronic liver disease. *Liver Stiffness over 2.4 m/s: Suggestive of clinically significant portal hypertension. QUALITY OF DATA SET: *IQR/Median value equal or less than 0.15 implies a quality data set. *IQR/Median value over 0.15 implies a poor quality data set. SIGNIFICANT CHANGE FROM PRIOR EXAM: Significant change if liver stiffness measurement is 10% or greater from prior exam. OTHER CONSIDERATIONS: The stage of liver fibrosis may be overestimated in the setting of acute hepatitis, liver inflammation, elevated liver function tests, hepatic vascular congestion, obstructive cholestasis, non-fasting state, and infiltrative diseases such as amyloidosis and lymphoma. In some patients with NAFLD, the liver stiffness thresholds for compensated advanced chronic liver disease may be lower. In causes other than viral hepatitis and NAFLD, liver stiffness thresholds are not well established.
== END 2022-07-04 07:56 | disposition home or self-care (01) ==
LOC: HO.US 07:55
PROVIDERS: Visit Provider Physician Assistant Surgical
DX: E66.01 Morbid (severe) obesity due to excess calories (principal); R10.11 Right upper quadrant pain; Z98.84 Bariatric surgery status
CPT/HCPCS: 76705; 76981

== ENCOUNTER → 2022-08-07 13:46 | Outpatient (BNVA) | payer OTHER, SELFPAY | PROVIDERS: Visit Provider Dietitian, Registered | DX: E66.9 Obesity, unspecified (principal); Z68.38 Body mass index [BMI] 38.0-38.9, adult; R73.03 Prediabetes; Z71.3 Dietary counseling and surveillance | CPT/HCPCS: 97803 ==

== ENCOUNTER → 2022-08-14 10:45 | Outpatient (BNVA) | payer OTHER, SELFPAY | PROVIDERS: Visit Provider Physician Assistant Surgical | DX: E66.9 Obesity, unspecified (principal); K21.9 Gastro-esophageal reflux disease without esophagitis; Z68.38 Body mass index [BMI] 38.0-38.9, adult | CPT/HCPCS: 99212 ==

== ENCOUNTER 2022-08-27 09:26 | Outpatient (REF) | payer OTHER, SELFPAY ==
[2022-09-03 20:02] LABS: Vitamin A 39 mcg/dL (38-98)
== END 2022-08-27 09:27 | disposition home or self-care (01) ==
LOC: HO.LAB 09:26
PROVIDERS: Visit Provider Physician Assistant Surgical
DX: E50.9 Vitamin A deficiency, unspecified (principal)
CPT/HCPCS: 36415; 84590

== ENCOUNTER → 2022-09-04 13:42 | Outpatient (BNVA) | payer OTHER, SELFPAY | PROVIDERS: Visit Provider Dietitian, Registered | DX: E66.01 Morbid (severe) obesity due to excess calories (principal); Z68.37 Body mass index [BMI] 37.0-37.9, adult | CPT/HCPCS: 97803 ==

== ENCOUNTER 2023-02-05 12:48 | Outpatient (AMB) | payer OTHER, SELFPAY ==
--- NOTE | 2023-02-05 12:52 | A.OFFVIS_ITS ---
Intake VS Expanded 02/05/23 12:58 Height 5 ft 5 in Weight 220 lb 9.6 oz BMI 36.7 Blood Pressure Location Rt brachial Blood Pressure Position Sitting Pulse 55 Pulse Source Pulse Oximeter Temp 97.0 F Temperature Source Temporal Artery Scan Pulse Oximetry 99 Oxygen Delivery Method Room Air Body Fat 97.2 Body Fat Percentage 44.1 Free Fat Mass 123.2 Muscle Mass 117.0 Visceral Mass 10.0 Water Mass 88.4 BMR 1,748 Intake Visit Reasons: (OV) PO LSG 11/19/21 Investigator Claims Required: No Allergies aspirin Allergy (Verified 02/05/23 12:55) Swelling Medication List - Last Reconciled 02/05/23 by DEMETRIS Wright levonorgestrel (Mirena) intrauterine pantoprazole 40 mg PO DAILY 90 days HPI HPI Comments History of Present Illness Details This?a?33?yo femal e who is s/p LSG w ithout hiatal dominguez ia repair on? [address] Sae landrum. Presents for 1 year, 2 month post op visit. Weight today is 220.6 ada nds, with a BMI of 36.7.? There has been a 156.4 pound weight loss,(init ial weight 377 ada nds) since startin g the program on 08/04/20 reflecting a 41.4% total bod y weight loss and a weight loss of 9 9.7 pounds since s urgery (operative weight 320.3 pound s) reflecting a 31 % TBWL since surge ry.? No complaints of nausea, emesis , abdominal pain, but does have inte rmittent reflux. S he states that it is intermittent.? Her PCP has Rx Fuchs toprazole 20 mg da velvet, taken as need ed. She notices G ERD worse with cof fee.? ? Reports in frequent but ziggy l bowel movements every 1-2 days and uses stool soften ers regularly. P resent meal plan i ncludes: RTD Fair life protein shake over 2-2.5 hrs 2 -3 oz chicken or e ggs, salmon, 2-3 o z potato or sweet potato or carrots Another RTD Fairli fe shake Drinking 32-48? oz water ? Exercise routine includes: treadm ill 5 x per week, 30-45 min speed 2. 8,? incline 2, 300 -330 calories burn ed.??? Any post o p complications: n one JOSE DAVID: never DM: never HTN: never Hyperlipidemia: ne monty GERD:? 0-5 scale ??0 = n o symptoms ??1 = s ymptoms noticeable but not bothersom e 2 =symptoms bot hersome but not da velvet ? 3 = symptoms bothersome and da velvet 4 = symptom s affect daily act ivities 5 = sympt oms are incapacita ting, unable to do daily activities ? How bad is the heartburn: 2 ? He artburn while lyin g down: 0 ? Heartb urn when standing up: 2 ? Heartburn after meals: 2 ? D oes heartburn shaw ge your diet: 0 ? Does heartburn wak e you up from slee p: 0 ? Do you have difficulty swallo win ? Do you h ave pain with swal lowin ? If you take medicine for your reflux, does this affect your daily life: 0 Sat isfaction with pre sent condition - s atisfied or not sa tisfied: izaiah taylor [facility] Medical History Abnormal uterine bleeding (AUB) Abnormal uterine bleeding (AUB) EIN (endometrial intraepithelial neoplasia) Endocervical polyp GERD (gastroesophageal reflux disease) Obese Pre-op evaluation Prediabetes Unsatisfactory cervical Papanicolaou smear Vaginitis Vitamin D deficiency Surgical History History of hysteroscopy S/P laparoscopic sleeve gastrectomy Family History Mother Diabetes Hypertension Seizures Liver problem Amputated left leg Father Diabetes Hypertension Liver problem Sister Diabetes Sister Diabetes Sister Diabetes Hypertension Social History Are you a primary client care representative to a significant other at home: No Do you presently have visiting nurse or other home services: No Alcohol intake: current Alcohol intake frequency: holidays/special occasions only Patient Tobacco Use Status: Never used Tobacco service: No Current occupational status: employed Female Reproductive History Menstrual Age of Menarche: 11 Review of Systems Const All systems reviewed & are unremarkable except as noted in HPI and below Physical Exam Vital Signs: Last Vital Signs Temp 97.0 F 02/05/23 12:58 Pulse 55 02/05/23 12:58 Pulse Ox 99 02/05/23 12:58 Oxygen Delivery Method Room Air 02/05/23 12:58 BMI result Body Mass Index 36.7 Const General: cooperative and no acute distress Orientation/consciousness: patient oriented x3 Resp Effort & Inspection: normal respiratory effort Auscultation: clear to auscultation bilaterally Cardio Rate: regular rate Rhythm: regular rhythm GI Inspection: Yes normal to inspection and Yes incision (well healed) Palpation (GI): Soft to palpation and no masses Neuro General: patient oriented x3 Assessment & Plan Assessment & Plan (1) Obese: Code(s): E66.9 - Obesity, unspecified Plan: check yearly labs Encouraged to take bariatric mvi and hubert+D. Given samples of Fusion as she stated celebrate caused nausea Reflux assoc w coffee Encouraged to increase exercise by one day or continue 5 days at 400 hubert per day Increase water to 48-64 oz daily rtc [address] Orders: Orders Vitamin B12 and Folate Today E66.9 - Obesity, unspecified Basic Metabolic Panel Today E66.9 - Obesity, unspecified C Reactive Protein Today E66.9 - Obesity, unspecified Ferritin Today E66.9 - Obesity, unspecified Hemoglobin A1c Today E66.9 - Obesity, unspecified Insulin Today E66.9 - Obesity, unspecified IRON PROFILE Today E66.9 - Obesity, unspecified Lipid Panel Today E66.9 - Obesity, unspecified PTHI Today E66.9 - Obesity, unspecified TSH reflex Free T4 Today E66.9 - Obesity, unspecified Vitamin A Today E66.9 - Obesity, unspecified Vitamin B1 Today E66.9 - Obesity, unspecified Vitamin D 25-OH Total Today E66.9 - Obesity, unspecified Zinc Today E66.9 - Obesity, unspecified Complete Blood Count Auto Diff Today E66.9 - Obesity, unspecified Coding Level of Care Code Est Pt Level 4 (38452) Diagnoses Obese E66.9 Time Spent (min) 40
[2023-02-05 12:58] VITALS: PULSE 55; TEMP 36.1; O2SAT 99; BMI 36.7
== END 2023-02-05 13:24 | disposition home or self-care (01) ==
PROVIDERS: Visit Provider Physician Assistant Surgical
DX: E66.9 Obesity, unspecified (principal); Z68.36 Body mass index [BMI] 36.0-36.9, adult; Z90.3 Acquired absence of stomach [part of]; Z98.84 Bariatric surgery status
CPT/HCPCS: 99214

== ENCOUNTER → 2023-02-05 12:48 | Outpatient (BNVA) | payer OTHER, SELFPAY | PROVIDERS: Visit Provider Physician Assistant Surgical | DX: E66.9 Obesity, unspecified (principal); Z68.36 Body mass index [BMI] 36.0-36.9, adult; Z98.84 Bariatric surgery status | CPT/HCPCS: 99212 ==

== ENCOUNTER 2023-02-12 08:58 | Outpatient (REF) | payer OTHER, SELFPAY ==
[2023-02-12 09:19] LABS: MANUAL DIFF FLAG NO
[2023-02-12 09:53] LABS: Basophils Percent Auto 0.6 % (0-2); Eosinophils Absolute Auto 0.6 X10*3/uL (0.0-0.4); Eosinophils Percent Auto 9.5 % (0-4); Imm Gran Abs Auto 0.06 X10*3/uL (0.00-0.03); Imm Gran Pct Auto 0.9 % (0.0-0.4); Lymphocytes Percent Auto 30.1 % (20-40); Mean Corpuscular HGB Conc 34.1 g/dl (31.0-35.0); Mean Corpuscular Hemoglobin 30.4 pg (27.0-33.0); Mean Corpuscular Volume 88.9 fL (80.0-98.0); Mean Platelet Volume 11.4 fL (9.4-12.3); Monocytes Absolute Auto 0.4 X10*3/uL (0.1-1.2); Monocytes Percent Auto 5.6 % (2-11); Neutrophils Absolute Auto 3.6 x10*3/uL (2.0-8.3); Neutrophils Percent Auto 53.3 % (45-73); Platelet Count 199 X10*3/uL (160-400); Red Blood Count 4.61 X10*6/uL (4.20-5.50); Red Cell Distribution Width 12.7 % (11.0-16.0); White Blood Count 6.8 X10*3/uL (4.8-10.8)
[2023-02-12 10:02] LABS: Estimated Average Glucose 91 mg/dL; Hemoglobin A1c % 4.8 % (<6.0)
[2023-02-12 10:29] LABS: Anion Gap 10 (12-20); Blood Urea Nitrogen 10 mg/dL (9-16); C Reactive Protein 0.62 mg/dL (< or = 0.50); Calcium 9.7 mg/dL (8.4-10.2); Carbon Dioxide 27 mmol/L (22-29); Chloride 107 mmol/L (96-108); Cholesterol 164 mg/dL (<200); Estimated Glomerular Filt Rate > 60; Glucose Random 84 mg/dL (60-115); HDL Cholesterol 42 mg/dL (>40); Iron 109 mcg/dL (30-160); LDL Cholesterol Calculated 110 mg/dL (<100); Percent Iron Saturation 51 % (15-50); Sodium 140 mmol/L (135-145); Total Iron Binding Capacity 215 mcg/dL (228-428); Triglycerides 62 mg/dL (<150); Unsaturated Iron Binding 106 ug/dL
[2023-02-12 10:52] LABS: Folate 15.4 ng/mL (> or = 4.0); Vitamin B12 1107 pg/mL (200-900)
[2023-02-12 10:58] LABS: Ferritin 177 ng/mL (10-122); Insulin 11 uU/mL (2-29); TSH reflex Free T4 1.46 uIU/mL (0.32-4.0); Vitamin D 25-OH Total 55.8 ng/mL (>30)
[2023-02-13 15:42] LABS: Calcium (PTHI) 9.6 mg/dL (8.6-10.2); PTHI 27 pg/mL (16-77)
[2023-02-17 15:48] LABS: Zinc 61 mcg/dL (60-130)
[2023-02-18 14:44] LABS: Vitamin A 36 mcg/dL (38-98)
[2023-02-18 15:13] LABS: Vitamin B1 8 nmol/L (8-30)
== END 2023-02-12 08:59 | disposition home or self-care (01) ==
LOC: HO.LAB 08:58
PROVIDERS: Visit Provider Physician Assistant Surgical
DX: E66.9 Obesity, unspecified (principal)
CPT/HCPCS: 36415; 80048; 80061; 82306; 82607; 82728; 82746; 83036; 83525; 83540; 83970; 84425; 84443; 84590; 84630; 85025; 86140

== ENCOUNTER → 2023-03-30 10:15 | Outpatient (BNVA) | payer OTHER, SELFPAY | PROVIDERS: PCP Internal Medicine; Visit Provider Dietitian, Registered | DX: E66.9 Obesity, unspecified (principal) | CPT/HCPCS: 97803 ==

== ENCOUNTER 2023-05-14 08:08 | Outpatient (AMB) | payer OTHER, SELFPAY ==
[2023-05-14 08:16] VITALS: BP 118/74; BMI 37.8
--- NOTE | 2023-05-14 08:16 | MHC.OFFVIS ---
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 No complaints. Last Pap/HPV was negative in 05/06 was negative The patient had EIN was consulted by Dr. Hernandez at [facility] IUD inserted last EMB done in 12/05 was negative, the plan is to repeat EMB at Dr. Hernandez 's office in 6 month [facility] Medical History (Updated 05/14/23 @ 08:38 by Octaviano Kan MD) ASCUS of cervix with negative high risk HPV Abnormal uterine bleeding (AUB) Obese Prediabetes GERD (gastroesophageal reflux disease) EIN (endometrial intraepithelial neoplasia) Unsatisfactory cervical Papanicolaou smear Vitamin D deficiency Endocervical polyp Vaginitis Abnormal uterine bleeding (AUB) Pre-op evaluation Surgical History S/P laparoscopic sleeve gastrectomy History of hysteroscopy Family History Mother Diabetes Hypertension Seizures Liver problem Amputated left leg Father Diabetes Hypertension Liver problem Sister Diabetes Sister Diabetes Sister Diabetes Hypertension Social History (Updated 05/14/23 @ 08:22 by Roula Shirley CMA) Household Members: Spouse Housing: Apartment Are you a primary manager managed care to a significant other at home: No Do you presently have visiting nurse or other home services: No Alcohol intake: former Patient Tobacco Use Status: Never used Tobacco service: No Current occupational status: employed Current occupation: [employer] Sexually active: Yes Sexual orientation: Straight/Heterosexual Gender identity: Female Female Reproductive History Menstrual Age of Menarche: 11 control method: progestin IUCD Total pregnancies: 0 Date of last pap smear: 05/05/22 Review of Systems Const All systems reviewed & are unremarkable except as noted in HPI and below Card Reports as per HPI Resp Reports as per HPI GI Reports as per HPI and Reports no additional complaints Reports as per HPI Physical Exam Vital Signs: Last Vital Signs BP 118/74 05/14/23 08:16 BMI result Body Mass Index 37.8 Const General: cooperative, healthy appearing and comfortable Chest Chest palpation & inspection: normal inspection of the chest and normal palpation of entire chest wall Breast/axilla inspection: normal inspection of the breasts and normal inspection of the axillae Breast/axilla palpation: normal palpation of the breasts, normal palpation of the axillae and no axillary lymphadenopathy Resp Effort & Inspection: normal respiratory effort Auscultation: clear to auscultation bilaterally Percussion: percussion normal Cardio Palpation: normal PMI Rate: regular rate Rhythm: regular rhythm Heart sounds: no murmurs and no rubs Peripheral pulses: Peripheral pulses 2+ throughout GI Inspection: Yes normal to inspection Palpation (GI): Soft to palpation, nontender, no guarding, not rigid and No hepatosplenomegaly present Percussion: Yes normal to percussion Auscultation: normal bowel sounds Rectal Exam - Female: deferred General: Yes bladder normal to palpation External Female Exam: No lesion Speculum Exam - Vagina: normal appearance of the vagina, normal palpation, normal vaginal discharge and not erythematous Speculum Exam - Cervix: normal appearance of the cervix and normal palpation Bimanual exam- vagina & uterus: normal bimanual exam, normal palpation, uterine size normal, bladder normal to palpation, consistency normal and normal palpation Bimanual Exam- Adnexa, other: normal adnexae, no masses and no tenderness Assessment & Plan Assessment & Plan (1) EIN (endometrial intraepithelial neoplasia): Comment: On Mirena IUD Code(s): N85.02 - Endometrial intraepithelial neoplasia [EIN] Plan: The patient has an appoint scheduled with Dr. Hernandez in 07/08 for repeat EMB, instructions given the patient to keep her appointment. All questions answered, the patient verbalized understanding (2) Well woman exam: Code(s): Z01.419 - Encounter for gynecological examination (general) (routine) without abnormal findings Plan: Cotesting done. Counseled the patient about the recommended dietary allowance of 1000 mg of Calcium & 600 IU of vitamin D. The patient was instructed to perform monthly self-breast exams and to schedule an annual exam in a year; All questions answered and the patient verbalized understanding. Instructed the patient to schedule annual exam in a year Coding Level of Care Code Est Pt Prev Care 18-39y(20165) Diagnoses EIN (endometrial intraepithelial neoplasia) N85.02 Well woman exam Z01.419
== END 2023-05-14 08:45 | disposition home or self-care (01) ==
PROVIDERS: Visit Provider Obstetrics & Gynecology
DX: Z01.419 Encounter for gynecological examination (general) (routine) without abnormal findings (principal); N85.02 Endometrial intraepithelial neoplasia [EIN]
CPT/HCPCS: 99395

== ENCOUNTER 2023-05-14 08:08 | Outpatient (REF) | payer OTHER, SELFPAY ==
[2023-05-19 05:28] LABS: HPV mRNA E6/E7 rflx Not Detected (Not Detected)
== END 2023-05-14 08:09 | disposition home or self-care (01) ==
LOC: HO.LNP 08:08
PROVIDERS: Visit Provider Obstetrics & Gynecology
DX: Z01.419 Encounter for gynecological examination (general) (routine) without abnormal findings (principal); Z11.51 Encounter for screening for human papillomavirus (HPV); N85.02 Endometrial intraepithelial neoplasia [EIN]
CPT/HCPCS: 87624; 88142

== ENCOUNTER 2023-06-02 09:15 | Outpatient (REF) | payer OTHER, SELFPAY ==
[2023-06-02 11:17] LABS: Lipase 31 U/L (8-78)
[2023-06-05 13:03] LABS: Transglutaminase Ab IgG <1.0 U/mL; Transglutaminase IgA <1.0 U/mL
== END 2023-06-02 09:16 | disposition home or self-care (01) ==
LOC: HO.LAB 09:15
PROVIDERS: PCP Internal Medicine; Visit Provider Nurse Practitioner Family
DX: K76.0 Fatty (change of) liver, not elsewhere classified (principal); K21.9 Gastro-esophageal reflux disease without esophagitis; K59.01 Slow transit constipation; R14.0 Abdominal distension (gaseous); K59.00 Constipation, unspecified; Z90.3 Acquired absence of stomach [part of]
CPT/HCPCS: 36415; 83690; 86364; 99202

== ENCOUNTER 2023-06-02 09:15 | Outpatient (AMB) | payer OTHER, SELFPAY ==
--- NOTE | 2023-06-02 09:20 | A.OFFVIS_ITS ---
Intake Vital Signs 06/02/23 09:23 Height 5 ft 5 in Weight 227 lb 1.218 oz BMI 37.8 BP 102/69 Blood Pressure Location Rt brachial Position Sitting Pulse 91 Intake Visit Reasons: gerd without esophagitis Intake Note: Thee presents in the office for GERD without Esophagitis. CC: She states that she is here today for acid reflux. In general she does not have any irregular bowel movements. It happens all the time not just when she e ats something. Allergies aspirin Allergy (Verified 06/02/23 09:23) Swelling HPI gerd without esophagitis HPI Details 33-year-old female with past medical his tory of endometrial intraepithelial neoplasia, morbid obesity, steatosis of the liver, GERD, status post laparoscopic sleeve gastrectomy in November of 2021 is here today for initial consultation. Patient reports that she has been having acid reflux. Patient states that she is on pantoprazole every morning. States that she feels like does not always work for her. Patient states that she is avoiding to eat anything spicy or heavy. Patient states that she limits coffee to usually 1 coffee a day. Patient denies any nausea or vomiting. Reports occasional dyspepsia without dysphagia or odynophagia. Patient also reports that she is having trouble moving her bowels. Even with MiraLax patient has no bowel movement. Sometimes no BM for 2-3 days. Patient denies melena, hematochezia, unintentional weight loss or ribbon like stools. [facility] Medical History ASCUS of cervix with negative high risk HPV Abnormal uterine bleeding (AUB) Obese Prediabetes GERD (gastroesophageal reflux disease) EIN (endometrial intraepithelial neoplasia) Unsatisfactory cervical Papanicolaou smear Vitamin D deficiency Endocervical polyp Vaginitis Abnormal uterine bleeding (AUB) Pre-op evaluation Surgical History S/P laparoscopic sleeve gastrectomy History of hysteroscopy Family History Mother Diabetes Hypertension Seizures Liver problem Amputated left leg Father Diabetes Hypertension Liver problem Sister Diabetes Sister Diabetes Sister Diabetes Hypertension Social History Household Members: Spouse Housing: Apartment Are you a primary career services coordinator to a significant other at home: No Do you presently have visiting nurse or other home services: No Alcohol intake: former Patient Tobacco Use Status: Never used Tobacco service: No Current occupational status: employed 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 Sexual orientation: Straight/Heterosexual Gender identity: Female Female Reproductive History Menstrual Age of Menarche: 11 Review of Systems Const Denies weight gain and Denies weight loss ENT Reports no additional complaints, Denies dysphagia and Denies odynophagia Card Reports no additional complaints Resp Reports no additional complaints GI Reports abdominal pain, Denies belching, Denies melena, Reports bloating, Reports constipation, Denies dysphagia, Denies excessive flatus, Denies dyspepsia, Reports heartburn, Denies diarrhea, Denies loose stools, Denies nausea, Denies odynophagia and Denies vomiting Reports no additional complaints Musc Reports no additional complaints Neuro Reports no additional complaints Psych Reports no additional complaints Endo Reports no additional complaints Physical Exam Vital Signs: Last Vital Signs Pulse 91 06/02/23 09:23 BP 102/69 06/02/23 09:23 BMI result Body Mass Index 37.8 Const General: healthy appearing, no acute distress and well developed Nutritional Appearance: obese Orientation/consciousness: patient oriented x3 HEENT Head: Yes normal to inspection, Yes normocephalic and Yes atraumatic Face and sinus: Yes normal facial exam Mouth: Normal oral and palatal mucosa present Throat: Yes posterior oropharynx normal, Yes tonsils normal and Yes uvula midline Eyes General: appearance normal, both eyes and all related structures Neck Neck: Yes normal visual inspection, Yes full ROM and Yes trachea midline Thyroid: Thyroid normal Resp Effort & Inspection: normal respiratory effort, able to speak in complete sentences, no tracheal deviation and symmetric chest movement Auscultation: clear to auscultation bilaterally Cardio Rate: regular rate GI Inspection: Yes normal to inspection, No distended and Yes obesity Palpation (GI): Soft to palpation, not firm, nontender and No hepatosplenomegaly present Auscultation: normal bowel sounds General: Yes no CVA tenderness Back/Spine/Pelvis Back: no CVA tenderness Skin General skin exam: elasticity normal, turgor normal and dry skin Neuro General: patient oriented x3 Psych Appearance: grossly normal Mental Status: mental status grossly normal Affect: normal affect Assessment & Plan Assessment & Plan (1) Steatosis, liver: Code(s): K76.0 - Fatty (change of) liver, not elsewhere classified (2) GERD (gastroesophageal reflux disease): Code(s): K21.9 - Gastro-esophageal reflux disease without esophagitis Qualifiers: Esophagitis presence: esophagitis presence not specified Qualified Code(s): K21.9 - Gastro-esophageal reflux disease without esophagitis (3) Constipation: Code(s): K59.00 - Constipation, unspecified Qualifiers: Constipation type: slow transit constipation Qualified Code(s): K59.01 - Slow transit constipation (4) Postprandial abdominal bloating: Code(s): R14.0 - Abdominal distension (gaseous) Plan Discussed with patient avoiding dietary triggers only time snacking. Staying upright for minimum 3 hours after meals discussed with patient. Will stop pantoprazole and start patient on Nexium in the morning. Patient can take low- dose famotidine at bedtime. Patient will increase fluid intake and activity to promote better bowel motility. Will start her on Senokot. Will send patient to get labs done and she will return in 5 weeks. Will send patient for upper endoscopy if she continue to have symptoms. Patient had upper GI series done and it showed spontaneous reflux normal motility of the esophagus. Patient is agreeable to this plan and verbalizes understanding of instructions. She was g iven the opportunity to ask questions and all questions answered. Thank you for allowing me to participate in her care Orders: Orders Transglutaminase Ab IgG Today R10.9 - Unspecified abdominal pain Transglutaminase IgA Today R10.9 - Unspecified abdominal pain H pylori Ag Stool Today K21.9 - Gastro-esophageal reflux disease without esophagitis Lipase Today R10.9 - Unspecified abdominal pain Medications: New esomeprazole magnesium (Nexium) 40 mg PO DAILY 30 caps 5RF K21.9 - Gastro- esophageal reflux disease without esophagitis famotidine (Pepcid) 20 mg PO BEDTIME 30 tabs 3RF K21.9 - Gastro-esophageal reflux disease without esophagitis sennosides (Natural Senna Laxative) 17.2 mg (2 x 8.6 mg) PO BEDTIME 60 tabs 3RF constipation K59.00 - Constipation, unspecified Discontinued pantoprazole Discontinued Reason: Doctor's Order 40 mg PO DAILY 90 days 90 tabs 0RF K21.9 - Gastro-esophageal reflux disease without esophagitis Coding Level of Care Code New Pt Level 3 (76219) Diagnoses Steatosis, liver K76.0 Gastroesophageal reflux disease, unspecified whether esophagitis present K21.9 Esophagitis presence: esophagitis presence not specified Slow transit constipation K59.01 Constipation type: slow transit constipation Postprandial abdominal bloating R14.0 Time Spent (min) 40 Comment 30 minutes spent with patient and additional 10 minutes spent reviewing her records
[2023-06-02 09:23] VITALS: BP 102/69; PULSE 91; BMI 37.8
== END 2023-06-02 10:43 | disposition home or self-care (01) ==
PROVIDERS: PCP Internal Medicine; Visit Provider Nurse Practitioner Family
DX: K76.0 Fatty (change of) liver, not elsewhere classified (principal); K21.9 Gastro-esophageal reflux disease without esophagitis; K59.01 Slow transit constipation; R14.0 Abdominal distension (gaseous)
CPT/HCPCS: 99203

== ENCOUNTER 2023-06-29 08:13 | Outpatient (REF) | payer OTHER, SELFPAY | END 2023-06-29 08:14 | disposition home or self-care (01) | LOC: HO.LNP 08:13 | PROVIDERS: Visit Provider Nurse Practitioner Family | DX: K21.9 Gastro-esophageal reflux disease without esophagitis (principal) | CPT/HCPCS: 87338 ==

== ENCOUNTER 2023-07-27 07:59 | Outpatient (REF) | payer OTHER, SELFPAY ==
[2023-07-27 08:19] LABS: MANUAL DIFF FLAG NO
[2023-07-27 08:35] LABS: Basophils Absolute Auto 0.1 X10*3/uL (0.0-0.2); Basophils Percent Auto 0.7 % (0-2); Eosinophils Percent Auto 14.5 % (0-4); Hematocrit 40.2 % (37.0-47.0); Imm Gran Abs Auto 0.02 X10*3/uL (0.00-0.03); Imm Gran Pct Auto 0.3 % (0.0-0.4); Lymphocytes Absolute Auto 1.8 X10*3/uL (1.2-4.9); Lymphocytes Percent Auto 26.7 % (20-40); Mean Corpuscular HGB Conc 34.8 g/dl (31.0-35.0); Mean Corpuscular Hemoglobin 30.7 pg (27.0-33.0); Mean Corpuscular Volume 88.2 fL (80.0-98.0); Mean Platelet Volume 10.4 fL (9.4-12.3); Monocytes Absolute Auto 0.5 X10*3/uL (0.1-1.2); Monocytes Percent Auto 6.7 % (2-11); Neutrophils Absolute Auto 3.5 x10*3/uL (2.0-8.3); Neutrophils Percent Auto 51.1 % (45-73); Platelet Count 174 X10*3/uL (160-400); Red Blood Count 4.56 X10*6/uL (4.20-5.50); Red Cell Distribution Width 12.7 % (11.0-16.0); White Blood Count 6.8 X10*3/uL (4.8-10.8)
[2023-07-27 08:43] LABS: Estimated Average Glucose 88 mg/dL; Hemoglobin A1c % 4.7 % (<6.0)
[2023-07-27 09:49] LABS: Anion Gap 9 (12-20); Blood Urea Nitrogen 14 mg/dL (9-16); C Reactive Protein 0.84 mg/dL (< or = 0.50); Calcium 9.4 mg/dL (8.4-10.2); Carbon Dioxide 27 mmol/L (22-29); Chloride 109 mmol/L (96-108); Cholesterol 174 mg/dL (<200); Estimated Glomerular Filt Rate > 60; Glucose Random 83 mg/dL (60-115); HDL Cholesterol 44 mg/dL (>40); Iron 154 mcg/dL (30-160); LDL Cholesterol Calculated 115 mg/dL (<100); Percent Iron Saturation 67 % (15-50); Potassium 4.1 mmol/L (3.3-5.1); Sodium 141 mmol/L (135-145); Total Iron Binding Capacity 231 mcg/dL (228-428); Triglycerides 76 mg/dL (<150); Unsaturated Iron Binding 77 ug/dL
[2023-07-27 10:13] LABS: Ferritin 199 ng/mL (10-122); Vitamin D 25-OH Total 53.2 ng/mL (>30)
[2023-07-27 10:57] LABS: Insulin 10 uU/mL (2-29)
[2023-07-27 11:23] LABS: Vitamin B12 1495 pg/mL (200-900)
[2023-07-30 00:14] LABS: Zinc 65 mcg/dL (60-130)
[2023-07-30 12:33] LABS: Vitamin A 43 mcg/dL (38-98)
[2023-08-02 15:49] LABS: Vitamin B1 11 nmol/L (8-30)
== END 2023-07-27 08:00 | disposition home or self-care (01) ==
LOC: HO.LAB 07:59
PROVIDERS: Visit Provider Physician Assistant Surgical
DX: E50.9 Vitamin A deficiency, unspecified (principal); K74.00 Hepatic fibrosis, unspecified; R73.03 Prediabetes; E66.9 Obesity, unspecified; Z98.84 Bariatric surgery status
CPT/HCPCS: 36415; 80048; 80061; 82306; 82607; 82728; 82746; 83036; 83525; 83540; 84425; 84443; 84590; 84630; 85025; 86140

== ENCOUNTER 2023-07-28 08:03 | Outpatient (AMB) | payer OTHER, SELFPAY ==
--- NOTE | 2023-07-28 08:16 | A.OFFVIS_ITS ---
Intake Vital Signs 07/28/23 08:18 Height 5 ft 5 in Weight 225 lb BMI 37.4 BP 102/52 L Blood Pressure Location Lt brachial Position Sitting Pulse 69 Intake Visit Reasons: f/u reschedule from 07/14 Intake Note: Patient follow up for acid reflex. Patient cc: acid reflex with burning sensation on and off, some rectal bleeding with constipation. Denies any other GI issues. Configuration Analyst Required: No Accompanied by: Self / Same As Patient Allergies aspirin Allergy (Verified 07/28/23 08:15) Swelling HPI f/u reschedule from 07/14 HPI Details LAST VISIT Steatosis, liver GERD (gastroesophageal reflux disease) Constipation Postprandial abdominal bloating Plan Discussed with patient avoiding dietary triggers only time snacking. Staying upright for minimum 3 hours after meals discussed with patient. Will stop pantoprazole and start patient on Nexium in the morning. Patient can take low- dose famotidine at bedtime. Patient will increase fluid intake and activity to promote better bowel motility. Will start her on Senokot. Will send patient to get labs done and she will return in 5 weeks. Will send patient for upper endoscopy if she continue to have symptoms. Patient had upper GI series done and it showed spontaneous reflux normal motility of the esophagus. Patient is agreeable to this plan and verbalizes understanding of instructions. She was given the opportunity to ask questions and all questions answered. ? Thank you for allowing me to participate in her care Orders Orders Transglutaminase Ab IgG Today R10.9 Transglutaminase IgA Today R10.9 H pylori Ag Stool Today K21.9 Lipase Today R10.9 Medications New esomeprazole magnesium (Nexium) 40 mg PO DAILY 30 caps 5RF K21.9 famotidine (Pepcid) 20 mg PO BEDTIME 30 tabs 3RF K21.9 sennosides (Natural Senna Laxative) 17.2 mg (2 x 8.6 mg) PO BEDTIME 60 tabs 3RF constipation K59.00 Discontinued pantoprazole Discontinued Reason: Doctor's Order 40 mg PO DAILY 90 days 90 tabs 0RF K21.9 TODAY'S VISIT: Patient is here today for follow-up and to discuss lab results. Patient reports that she has been taking Nexium in the morning and famotidine at bedtime. Continues to have epigastric pain. Patient reports that she is eating small meals, mostly protein, avoiding carbs and she continues to have pain and c ontinues weight gain. Patient states that she has an appointment with the phthalic acid purifier at bariatric services today to discuss her diet. All her labs discussed with patient. Everything came back normal. No H pylori. Patient reports that she is still constipated and despite taking Senokot she has to sit on the toilet for a long time to move her bowels. Occasional blood when wiping after bowel movement PFS Medical History ASCUS of cervix with negative high risk HPV Abnormal uterine bleeding (AUB) Obese Prediabetes GERD (gastroesophageal reflux disease) EIN (endometrial intraepithelial neoplasia) Unsatisfactory cervical Papanicolaou smear Vitamin D deficiency Endocervical polyp Vaginitis Abnormal uterine bleeding (AUB) Pre-op evaluation Surgical History S/P laparoscopic sleeve gastrectomy History of hysteroscopy Family History Mother Diabetes Hypertension Seizures Liver problem Amputated left leg Father Diabetes Hypertension Liver problem Sister Diabetes Sister Diabetes Sister Diabetes Hypertension Social History Household Members: Spouse Housing: Apartment Are you a primary career information specialist to a significant other at home: No Do you presently have visiting nurse or other home services: No Alcohol intake: former Patient Tobacco Use Status: Never used Tobacco service: No Current occupational status: employed 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 Sexual orientation: Straight/Heterosexual Gender identity: Female Female Reproductive History Menstrual Age of Menarche: 11 Review of Systems Const Denies weight gain and Denies weight loss ENT Reports no additional complaints, Denies dysphagia and Denies odynophagia Card Reports no additional complaints Resp Reports no additional complaints GI Denies abdominal pain, Denies belching, Denies melena, Denies bloating, Reports constipation, Denies dysphagia, Denies excessive flatus, Reports dyspepsia, Reports heartburn, Denies diarrhea, Denies loose stools, Denies nausea, Denies odynophagia and Denies vomiting Reports no additional complaints Musc Reports no additional complaints Neuro Reports no additional complaints Psych Reports no additional complaints Endo Reports no additional complaints Physical Exam Vital Signs: Last Vital Signs Pulse 69 07/28/23 08:18 BP 102/52 L 07/28/23 08:18 BMI result Body Mass Index 37.4 Const General: healthy appearing and no acute distress Nutritional Appearance: obese Orientation/consciousness: patient oriented x3 Resp Effort & Inspection: normal respiratory effort, able to speak in complete sentences, no tracheal deviation and symmetric chest movement Auscultation: clear to auscultation bilaterally Cardio Rate: regular rate GI Inspection: Yes normal to inspection, No distended and Yes obesity Palpation (GI): Soft to palpation, not firm, nontender and No hepatosplenomegaly present Auscultation: normal bowel sounds General: Yes no CVA tenderness Back/Spine/Pelvis Back: no CVA tenderness Skin General skin exam: elasticity normal, turgor normal and dry skin Neuro General: patient oriented x3 Psych Appearance: grossly normal Mental Status: mental status grossly normal Results Reviewed Results Reviewed: Laboratory Tests 06/02/23 07/27/23 10:12 08:18 Ferritin 199 H C-Reactive Protein 0.84 H 25-OH Vitamin D Total 53.2 Folate 15.0 TSH 1.60 Tiss Transglutamin IgG <1.0 Tiss Transglutamin IgA <1.0 H PYLORI NEGATIVE Assessment & Plan Assessment & Plan (1) Right upper quadrant abdominal pain: Code(s): R10.11 - Right upper quadrant pain (2) Steatosis, liver: Code(s): K76.0 - Fatty (change of) liver, not elsewhere classified (3) GERD (gastroesophageal reflux disease): Code(s): K21.9 - Gastro-esophageal reflux disease without esophagitis Qualifiers: Esophagitis presence: esophagitis presence not specified Qualified Code(s): K21.9 - Gastro-esophageal reflux disease without esophagitis (4) Constipation: Code(s): K59.00 - Constipation, unspecified Qualifiers: Constipation type: slow transit constipation Qualified Code(s): K59.01 - Slow transit constipation (5) Postprandial abdominal bloating: Code(s): R14.0 - Abdominal distension (gaseous) Plan Patient will start taking Linzess every day. Patient was encouraged to increase fluid intake and activity to promote better bowel motility. Can then you following up with bariatric services for diet plan. Lab work discussed with patient and all normal. No H pylori. Will change therapy to omeprazole. Angel gonzalez was encouraged to avoid dietary triggers and late night snacking. Staying upright for minimum 3 hours after meals discussed with patient. If patient continues with symptoms will send her for upper endoscopy. Patient is verbalizes understanding of instructions. She was 30 to ask questions and all questions answered. Thank you for allowing me participate in her care Medications: New linaclotide (Linzess) 145 mcg PO DAILY 30 caps 2RF hydrocortisone 2.5% (Proctosol HC) 1 appl MO BID-QID PRN 30 grams 2RF hemorrhoids K64.9 - Unspecified hemorrhoids omeprazole 40 mg PO DAILY 30 caps 3RF K21.9 - Gastro-esophageal reflux disease without esophagitis Discontinued esomeprazole magnesium (Nexium) Discontinued Reason: Doctor's Order 40 mg PO DAILY 30 caps 5RF K21.9 - Gastro-esophageal reflux disease without esophagitis sennosides (Natural Senna Laxative) Discontinued Reason: Doctor's Order 17.2 mg (2 x 8.6 mg) PO BEDTIME 60 tabs 3RF constipation K59.00 - Constipation, unspecified Coding Level of Care Code Est Pt Level 4 (13300) Diagnoses Right upper quadrant abdominal pain R10.11 Steatosis, liver K76.0 Gastroesophageal reflux disease, unspecified whether esophagitis present K21.9 Esophagitis presence: esophagitis presence not specified Slow transit constipation K59.01 Constipation type: slow transit constipation Postprandial abdominal bloating R14.0 Time Spent (min) 35 Comment 20 minutes spent with patient and additional 15 minutes spent reviewing her records
[2023-07-28 08:18] VITALS: BP 102/52; PULSE 69; BMI 37.4
== END 2023-07-28 09:14 | disposition home or self-care (01) ==
PROVIDERS: PCP Internal Medicine; Visit Provider Nurse Practitioner Family
DX: R10.11 Right upper quadrant pain (principal); K76.0 Fatty (change of) liver, not elsewhere classified; K21.9 Gastro-esophageal reflux disease without esophagitis; K59.01 Slow transit constipation; R14.0 Abdominal distension (gaseous)
CPT/HCPCS: 99214

== ENCOUNTER 2023-07-28 08:03 | Outpatient (AMB) | payer OTHER, SELFPAY ==
--- NOTE | 2023-07-28 10:22 | A.OFFVIS_ITS ---
Intake Intake Visit Reasons: (TV) PO LSG 11/19/21 Allergies aspirin Allergy (Verified 07/28/23 08:15) Swelling HPI Nutrition Presentation Details PO LSG 11/19/21 Preop weight (11/15) 320# weight 4 wks 301 weight at 8 weeks 289# weight at 3MO 265# weight at 6MO 249# weight at 1 YR 223# Patient declined the use of a court interpreter today Reason for consult elevated BMI Diet Assmnt Details Patient expresses frustration that her weight loss is very slow. She states she wants to go back to using the bars and shake now. Uses premier premade. Hydration 2-3 bottles water daily Exercise: treadmill walks about 1 mile 1 hour Dietary counseling reduction Diagnosis Nutrition problem #1 overweight/obesity As related to (etiology) #1 excess energy intake and physical inactivity As evidenced by (sign/symptom) #1 high BMI Monitoring/Goals Nutrition problem monitoring total energy intake, level of knowledge/skill, total PRO intake, total CHO intake and weight Outcome progress progressing Learning/Education Readiness to learn good Stages of change action Most Recent Diabetes Results: Cholesterol 174 mg/dL (<200) 07/27/23 HDL Cholesterol 44 mg/dL (>40) 07/27/23 Triglycerides 76 mg/dL (<150) 07/27/23 Creatinine 0.66 mg/dL (0.5-1.4) 07/27/23 Blood Urea Nitrogen 14 mg/dL (9-16) 07/27/23 Sodium 141 mmol/L (135-145) 07/27/23 Potassium 4.1 mmol/L (3.3-5.1) 07/27/23 Chloride 109 mmol/L (96-108) H 07/27/23 Carbon Dioxide 27 mmol/L (22-29) 07/27/23 Calcium 9.4 mg/dL (8.4-10.2) 07/27/23 [facility] Medical History ASCUS of cervix with negative high risk HPV Abnormal uterine bleeding (AUB) Obese Prediabetes GERD (gastroesophageal reflux disease) EIN (endometrial intraepithelial neoplasia) Unsatisfactory cervical Papanicolaou smear Vitamin D deficiency Endocervical polyp Vaginitis Abnormal uterine bleeding (AUB) Pre-op evaluation Surgical History S/P laparoscopic sleeve gastrectomy History of hysteroscopy Family History Mother Diabetes Hypertension Seizures Liver problem Amputated left leg Father Diabetes Hypertension Liver problem Sister Diabetes Sister Diabetes Sister Diabetes Hypertension Social History Household Members: Spouse Housing: Apartment Are you a primary urgent care nurse practitioner to a significant other at home: No Do you presently have visiting nurse or other home services: No Alcohol intake: former Patient Tobacco Use Status: Never used Tobacco service: No Current occupational status: employed 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 Will start with 2 shakes, 2 meals. Educated on balancing plate. F/u in 1 month Plan Telehealth Telehealth Location of provider rendering services: other (home address , [facility]) Location of patient: address on file Patient Identification confirmed using: Name, : Yes Telehealth method: voice only Patient verbally consented to treatment: Yes Patient verbally consented to billing insurance company: Yes Patient informed of any privacy concerns related to visit: Yes Minutes spent on Phone/Video with Pt.: 20 Coding Level of Care Code Nutr Indiv Subseq (74577) Diagnoses Obesity (BMI 30-39.9) E66.9 Time Spent (min) 20
== END 2023-07-28 10:32 | disposition home or self-care (01) ==
PROVIDERS: PCP Internal Medicine; Visit Provider Dietitian, Registered
DX: E66.9 Obesity, unspecified (principal)

== ENCOUNTER → 2023-07-28 08:03 | Outpatient (BNVA) | payer OTHER, SELFPAY | PROVIDERS: PCP Internal Medicine; Visit Provider Nurse Practitioner Family | DX: E66.9 Obesity, unspecified (principal); R10.11 Right upper quadrant pain; R14.0 Abdominal distension (gaseous); K76.0 Fatty (change of) liver, not elsewhere classified; K21.9 Gastro-esophageal reflux disease without esophagitis; K59.01 Slow transit constipation; Z68.37 Body mass index [BMI] 37.0-37.9, adult | CPT/HCPCS: 97803; 99212 ==

== ENCOUNTER 2023-08-24 12:45 | Outpatient (RCR) | payer OTHER, SELFPAY | END 2023-09-02 08:27 | disposition home or self-care (01) | LOC: HO.PT 12:45 | PROVIDERS: PCP Internal Medicine; Visit Provider Internal Medicine | DX: M25.512 Pain in left shoulder (principal); M54.50 Low back pain, unspecified; G89.29 Other chronic pain | CPT/HCPCS: 97110; 97140; 97162 ==

== ENCOUNTER 2023-08-25 07:23 | Outpatient (AMB) | payer OTHER, SELFPAY ==
[2023-08-25 07:55] VITALS: BP 112/70; PULSE 62; O2SAT 98; BMI 37.9
--- NOTE | 2023-08-25 07:55 | A.OFFVIS_ITS ---
Intake Intake Visit Reasons: New patient-est care Allergies aspirin Allergy (Verified 08/07/23 07:41) Swelling HPI Nutrition Most Recent Diabetes Results: Cholesterol 174 mg/dL (<200) 07/27/23 HDL Cholesterol 44 mg/dL (>40) 07/27/23 Triglycerides 76 mg/dL (<150) 07/27/23 Creatinine 0.66 mg/dL (0.5-1.4) 07/27/23 Blood Urea Nitrogen 14 mg/dL (9-16) 07/27/23 Sodium 141 mmol/L (135-145) 07/27/23 Potassium 4.1 mmol/L (3.3-5.1) 07/27/23 Chloride 109 mmol/L (96-108) H 07/27/23 Carbon Dioxide 27 mmol/L (22-29) 07/27/23 Calcium 9.4 mg/dL (8.4-10.2) 07/27/23 PFSH Medical History ASCUS of cervix with negative high risk HPV Abnormal uterine bleeding (AUB) Obese Prediabetes GERD (gastroesophageal reflux disease) EIN (endometrial intraepithelial neoplasia) Unsatisfactory cervical Papanicolaou smear Vitamin D deficiency Endocervical polyp Vaginitis Abnormal uterine bleeding (AUB) Pre-op evaluation Surgical History S/P laparoscopic sleeve gastrectomy History of hysteroscopy Family History Mother Diabetes Hypertension Seizures Liver problem Amputated left leg Father Diabetes Hypertension Liver problem Sister Diabetes Sister Diabetes Sister Diabetes Hypertension Social History (System 08/07/23 @ 07:41 by Louise Torres) Household Members: Spouse Housing: Apartment Are you a primary pediatric care coordinator to a significant other at home: No Do you presently have visiting nurse or other home services: No Alcohol intake: former Patient Tobacco Use Status: Never used Tobacco service: No Current occupational status: employed 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
--- NOTE | 2023-08-25 07:55 | MHC.PC.OV ---
Vital Signs 08/25/23 07:55 Height 5 ft 5 in Weight 228 lb BMI 37.9 BP 112/70 Blood Pressure Location Lt brachial Position Sitting Pulse 62 Pulse Source Pulse Oximeter Pulse Oximetry (%) 98 Oxygen Delivery Method Room Air Intake Visit Reasons: New patient-est care Lead Ramp Agent Required: No Accompanied by: Self / Same As Patient Allergies aspirin Allergy (Verified 08/25/23 07:57) Swelling Medication List - Last Reconciled 08/25/23 by Migdalia Vaughan MD famotidine (Pepcid) 20 mg PO BEDTIME hydrocortisone 2.5% (Proctosol HC) 1 appl IA BID-QID PRN levonorgestrel (Mirena) intrauterine linaclotide (Linzess) 145 mcg PO DAILY multivitamin 1 tab PO DAILY omeprazole 40 mg PO DAILY HPI HPI Comments History of Present Illness Details This is a 33-year-old female with GERD, constipation, liver steatosis and obesity that comes today to establish care. GERD and constipation as well as liver steatosis are follow by Gastroenterology and has been stable with medications. She is obese with a BMI of 37.9 and is follow by weight management. Denies any chest pain or shortness of breath. [facility] Medical History (Updated 08/25/23 @ 08:14 by Migdalia Vaughan MD) Morbid obesity ASCUS of cervix with negative high risk HPV Abnormal uterine bleeding (AUB) Obese Prediabetes GERD (gastroesophageal reflux disease) EIN (endometrial intraepithelial neoplasia) Unsatisfactory cervical Papanicolaou smear Vitamin D deficiency Endocervical polyp Vaginitis Abnormal uterine bleeding (AUB) Pre-op evaluation Surgical History S/P laparoscopic sleeve gastrectomy History of hysteroscopy Family History Mother Diabetes Hypertension Seizures Liver problem Amputated left leg Father Diabetes Hypertension Liver problem Sister Diabetes Sister Diabetes Sister Diabetes Hypertension Social History Household Members: Spouse Housing: Apartment Are you a primary nanny caregiver to a significant other at home: No Do you presently have visiting nurse or other home services: No Alcohol intake: former Patient Tobacco Use Status: Never used Tobacco service: No Current occupational status: employed Current occupation: [employer] Sexual orientation: Straight/Heterosexual Gender identity: Female Female Reproductive History Menstrual Age of Menarche: 11 Questionnaire PHQ-9 Over the last 2 weeks, how often have you been bothered by any of the following problems? 1. Little interest or pleasure in doing things: not at all 2. Feeling down, depressed, or hopeless: not at all 3. Trouble falling or staying asleep, or sleeping too much: not at all 4. Feeling tired or having little energy: not at all 5. Poor appetite or overeating: not at all 6. Feeling bad about yourself - or that you are a failure or have let yourself or your family down: not at all 7. Trouble concentrating on things, such as reading the newspaper or watching television: not at all 8. Moving or speaking so slowly that other people could have noticed. Or the opposite - being so fidgety or restless that you have been moving around a lot more than usual: not at all 9. Thoughts that you would be better off or of hurting yourself in some way: not at all Total score: 0 Depression Screening Interpretation: Negative Depression Screening Done: Yes 86524 - PHQ-9 Billing: Yes Source: Developed by Drs. Bhupendra Donovan, Channing Cantrell and colleagues, with an educational taylor from [employer]. ELBA-7 AMB Questionnaire ELBA-7 Date ELBA - 7 assessed: 08/25/23 Feeling nervous, anxious, or on edge: 1 = Several days Not being able to stop or control worryin = Not at all Worrying too much about different things: 0 = Not at all Trouble relaxin = Not at all Being so restless that it is hard to sit still: 0 = Not at all Becoming easily annoyed or irritable: 0 = Not at all Feeling afraid as if something awful might happen: 0 = Not at all Total ELBA-7 score (0-4 normal; 5-9 mild; 10-14 moderate; 15-21 severe): 1 Source: Developed by Drs. Bhupendra Donovan, Channing Cantrell and colleagues, with an educational taylor from [employer]. ELBA-7 Assessment Billing ELBA-7 Assessment Tool: ELBA-7 Assessment 01495 Review of Systems Const All systems reviewed & are unremarkable except as noted in HPI and below Eyes Reports no additional complaints, Denies change in vision and Denies other visual disturbances ENT Denies change in voice, Denies nasal discharge and Denies sinus pain Card Denies chest pain at rest, Denies chest pain with activity, Denies edema, Denies irregular heart rhythm, Denies claudication, Denies dyspnea, Denies dyspnea on exertion, Denies orthopnea, Denies paroxysmal nocturnal dyspnea and Denies slow heart rate Resp Denies cough, Denies dyspnea and Denies dyspnea on exertion GI Denies abdominal pain, Denies change in bowel habits, Denies excessive flatus, Denies nausea and Denies vomiting Denies urinary incontinence, Denies urinary hesitancy and Denies urinary urgency Endo Denies cold intolerance Physical exam (Primary Care) Vital Signs: Last Vital Signs BP 112/70 08/25/23 07:55 Oxygen Delivery Method Room Air 08/25/23 07:55 Tobacco/Smoking Status: Tobacco use Status Patient Tobacco Use Status Never used Tobacco 08/25/23 07:56 Depression Screening Interpretation: Negative Neck Neck: Yes normal visual inspection and Yes supple Resp Effort & Inspection: normal respiratory effort Auscultation: clear to auscultation bilaterally Cardio Jugular venous distension: no JVD Rate: regular rate Rhythm: regular rhythm Heart sounds: S1 normal heart sound present and S2 normal heart sound present Extrem General: Yes full ROM Psych Appearance: grossly normal Assessment and Plan Assessment & Plan (1) GERD (gastroesophageal reflux disease): Code(s): K21.9 - Gastro-esophageal reflux disease without esophagitis Qualifiers: Esophagitis presence: esophagitis presence not specified Qualified Code(s): K21.9 - Gastro-esophageal reflux disease without esophagitis Plan: Continue famotidine and omeprazole. Follow-up with Gastroenterology. (2) Steatosis, liver: Code(s): K76.0 - Fatty (change of) liver, not elsewhere classified Plan: Follow a low-fat diet. (3) Chronic idiopathic constipation: Code(s): K59.04 - Chronic idiopathic constipation Plan: Continue Linzess. (4) Class 2 obesity with body mass index (BMI) of 37.0 to 37.9 in adult: Code(s): E66.9 - Obesity, unspecified; Z68.37 - Body mass index [BMI] 37.0-37.9, adult Plan: Follow-up with weight management. BMI goal is less than 30. Coding Level of Care Code New Pt Level 4 (01705) Diagnoses Gastroesophageal reflux disease, unspecified whether esophagitis present K21.9 Esophagitis presence: esophagitis presence not specified Steatosis, liver K76.0 Chronic idiopathic constipation K59.04 Class 2 obesity with body mass index (BMI) of 37.0 to 37.9 in adult E66.9; Z68.37 Additional Codes ELBA-7 Assessment Billing - ELBA-7 Assessment Tool: ELBA-7 Assessment [id number] ([id number]) Time Spent (min) 26
== END 2023-08-25 08:08 | disposition home or self-care (01) ==
PROVIDERS: Visit Provider Internal Medicine
DX: K21.9 Gastro-esophageal reflux disease without esophagitis (principal); K76.0 Fatty (change of) liver, not elsewhere classified; K59.04 Chronic idiopathic constipation; E66.9 Obesity, unspecified; Z68.37 Body mass index [BMI] 37.0-37.9, adult
CPT/HCPCS: 99204

== ENCOUNTER 2023-08-26 10:09 | Outpatient (AMB) | payer SELFPAY ==
--- NOTE | 2023-08-26 10:00 | A.OFFVIS_ITS ---
Intake Intake Visit Reasons: (TV) PO LSG 11/19/21 Executive Meeting Manager Required: Yes Executive Meeting Manager Name: [id number] cyracom Information Interpreted: non-clinical & clinical Allergies aspirin Allergy (Verified 08/25/23 07:57) Swelling HPI Nutrition Presentation Details PO LSG 11/19/21 Preop weight (6/3) 320# weight 4 wks 301# weight at 8 weeks 289# weight at 3MO 265# weight at 6MO 249# weight at 1 YR 223# Current weight at 21 MO PO 228# Reason for consult elevated BMI Diet Assmnt Details Patient expresses frustration regarding lack of weight loss she reports adhering to a high protein, structured plan of 2 premier shakes (her choice) and 2 meals of protein and veg Hydration 2-3 bottles water daily Exercise: None . reports a few weeks ago her treadmill broke. Dietary counseling reduction Diagnosis Nutrition problem #1 overweight/obesity As related to (etiology) #1 excess energy intake and physical inactivity As evidenced by (sign/symptom) #1 high BMI Monitoring/Goals Nutrition problem monitoring total energy intake, level of knowledge/skill, total PRO intake, total CHO intake and weight Outcome progress progressing Learning/Education Readiness to learn good Stages of change action Most Recent Diabetes Results: Cholesterol 174 mg/dL (<200) 07/27/23 HDL Cholesterol 44 mg/dL (>40) 07/27/23 Triglycerides 76 mg/dL (<150) 07/27/23 Creatinine 0.66 mg/dL (0.5-1.4) 07/27/23 Blood Urea Nitrogen 14 mg/dL (9-16) 07/27/23 Sodium 141 mmol/L (135-145) 07/27/23 Potassium 4.1 mmol/L (3.3-5.1) 07/27/23 Chloride 109 mmol/L (96-108) H 07/27/23 Carbon Dioxide 27 mmol/L (22-29) 07/27/23 Calcium 9.4 mg/dL (8.4-10.2) 07/27/23 [facility] Medical History (Updated 08/25/23 @ 08:14 by Migdalia Vaughan MD) Morbid obesity ASCUS of cervix with negative high risk HPV Abnormal uterine bleeding (AUB) Obese Prediabetes GERD (gastroesophageal reflux disease) EIN (endometrial intraepithelial neoplasia) Unsatisfactory cervical Papanicolaou smear Vitamin D deficiency Endocervical polyp Vaginitis Abnormal uterine bleeding (AUB) Pre-op evaluation Surgical History S/P laparoscopic sleeve gastrectomy History of hysteroscopy Family History Mother Diabetes Hypertension Seizures Liver problem Amputated left leg Father Diabetes Hypertension Liver problem Sister Diabetes Sister Diabetes Sister Diabetes Hypertension Social History Household Members: Spouse Housing: Apartment Are you a primary care provider to a significant other at home: No Do you presently have visiting nurse or other home services: No Alcohol intake: former Patient Tobacco Use Status: Never used Tobacco service: No Current occupational status: employed 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 Encouraged beginning a consistent exercise routine, and challenging herself - she chose the goal of 4 days per week, walking 1 hour and completing 3 miles in that time frame. She will continue to use the premier shakes (her choice) , and include 2 small meals protein and veg each. Will contiue f/u in 3 MO with DEMETRIS BUNDY or [facility]UPINDER Telehealth Telehealth Location of provider rendering services: practice address (home address , [facility]) Location of patient: address on file Patient Identification confirmed using: Name, : Yes Telehealth method: voice only Patient verbally consented to treatment: Yes Patient verbally consented to billing insurance company: Yes Patient informed of any privacy concerns related to visit: Yes Minutes spent on Phone/Video with Pt.: 30 Coding Level of Care Code Nutr Macieliv Subseq (00767) Diagnoses Obesity (BMI 30-39.9) E66.9 Time Spent (min) 30
== END 2023-08-26 10:18 | disposition home or self-care (01) ==
LOC: HO.HBS 10:09
PROVIDERS: PCP Internal Medicine; Visit Provider Dietitian, Registered
DX: E66.9 Obesity, unspecified (principal)

== ENCOUNTER → 2023-08-26 10:09 | Outpatient (BNVA) | payer OTHER, SELFPAY | PROVIDERS: PCP Internal Medicine; Visit Provider Dietitian, Registered | DX: E66.9 Obesity, unspecified (principal); Z98.84 Bariatric surgery status; Z71.3 Dietary counseling and surveillance | CPT/HCPCS: 97803 ==

== ENCOUNTER 2023-09-01 08:15 | Outpatient (AMB) | payer OTHER, SELFPAY ==
--- NOTE | 2023-09-01 08:23 | MHC.OFFVIS ---
Intake Vital Signs 09/01/23 08:25 Height 5 ft 5 in Weight 231 lb 7.766 oz BMI 38.5 BP 106/56 L Blood Pressure Location Lt brachial Position Sitting Pulse 63 Intake Visit Reasons: 5 week follow up Intake Note: Thee presents in the office as a 5 week follow up. CC: No concerns today - just a follow up. Allergies aspirin Allergy (Verified 09/01/23 08:34) Swelling HPI 5 week follow up HPI Details LAST VISIT Right upper quadrant abdominal pain Steatosis, liver GERD (gastroesophageal reflux disease) Constipation Postprandial abdominal bloating Plan Patient will start taking Linzess every day. Patient was encouraged to increase fluid intake and activity to promote better bowel motility. Can then you following up with bariatric services for diet plan. Lab work discussed with patient and all normal. No H pylori. Will change therapy to omeprazole. Patient was encouraged to avoid dietary triggers and late night snacking. Staying upright for minimum 3 hours after meals discussed with patient. If patient continues with symptoms will send her for upper endoscopy. Patient is verbalizes understanding of instructions. She was 30 to ask questions and all questions answered. ? Thank you for allowing me participate in her care Medications New linaclotide (Linzess) 145 mcg PO DAILY 30 caps 2RF hydrocortisone 2.5% (Proctosol HC) 1 appl MA BID-QID PRN 30 grams 2RF hemorrhoids K64.9 omeprazole 40 mg PO DAILY 30 caps 3RF K21.9 Discontinued esomeprazole magnesium (Nexium) Discontinued Reason: Doctor's Order 40 mg PO DAILY 30 caps 5RF K21.9 sennosides (Natural Senna Laxative) Discontinued Reason: Doctor's Order 17.2 mg (2 x 8.6 mg) PO BEDTIME 60 tabs 3RF constipation K59.00 TODAY'S VISIT Patient is here today for follow-up. Patient reports that she has been feeling better since she started taking Linzess. Patient no longer has abdominal cramping or abdominal pain. Patient is trying to avoid food that is high in fat. Patient admits to be eating lots of sweets still. Patient denies melena, hematochezia, unintentional weight loss or ribbon like stools. Patient denies any dyspepsia, dysphagia or odynophagia. Reports occasional acid reflux patient is taking omeprazole on as needed basis. Patient states that she takes it about once or twice a week. Usually when she eats bread or red sauce patient states that she has epigastric discomfort. Patient denies any nausea or vomiting. Patient reports that with Linzess she is moving her bowels better now. Seems like her symptoms resolved after having better bowel movements. Patient continues to try to lose weight and sometimes your frustrated as she can not lose weight. ON LICENSE OF [facility] Medical History Morbid obesity ASCUS of cervix with negative high risk HPV Abnormal uterine bleeding (AUB) Obese Prediabetes GERD (gastroesophageal reflux disease) EIN (endometrial intraepithelial neoplasia) Unsatisfactory cervical Papanicolaou smear Vitamin D deficiency Endocervical polyp Vaginitis Abnormal uterine bleeding (AUB) Pre-op evaluation Surgical History S/P laparoscopic sleeve gastrectomy History of hysteroscopy Family History Mother Diabetes Hypertension Seizures Liver problem Amputated left leg Father Diabetes Hypertension Liver problem Sister Diabetes Sister Diabetes Sister Diabetes Hypertension Social History Household Members: Spouse Housing: Apartment Are you a primary director critical care to a significant other at home: No Do you presently have visiting nurse or other home services: No Alcohol intake: former Patient Tobacco Use Status: Never used Tobacco service: No Current occupational status: employed Current occupation: [employer] Sexual orientation: Straight/Heterosexual Gender identity: Female Female Reproductive History Menstrual Age of Menarche: 11 Review of Systems Const Denies weight gain and Denies weight loss ENT Reports no additional complaints, Denies dysphagia and Denies odynophagia Card Reports no additional complaints Resp Reports no additional complaints GI Denies abdominal pain, Denies belching, Denies melena, Denies bloating, Denies change in bowel habits, Denies dysphagia, Denies excessive flatus, Denies dyspepsia, Reports heartburn (occasional), Denies diarrhea, Denies loose stools, Denies nausea, Denies odynophagia and Denies vomiting Reports no additional complaints Musc Reports no additional complaints Neuro Reports no additional complaints Psych Reports no additional complaints Endo Reports no additional complaints Physical Exam Vital Signs: Last Vital Signs Pulse 63 09/01/23 08:25 BP 106/56 L 09/01/23 08:25 BMI result Body Mass Index 38.5 Const General: healthy appearing, no acute distress and well developed Nutritional Appearance: obese Orientation/consciousness: patient oriented x3 Resp Effort & Inspection: normal respiratory effort, able to speak in complete sentences, no tracheal deviation and symmetric chest movement Auscultation: clear to auscultation bilaterally Cardio Rate: regular rate GI Inspection: Yes normal to inspection, No distended and Yes obesity Palpation (GI): Soft to palpation, not firm, nontender and No hepatosplenomegaly present Auscultation: normal bowel sounds General: Yes no CVA tenderness Back/Spine/Pelvis Back: no CVA tenderness Skin General skin exam: elasticity normal, turgor normal and dry skin Neuro General: patient oriented x3 Psych Appearance: grossly normal Mental Status: mental status grossly normal Assessment & Plan Assessment & Plan (1) Right upper quadrant abdominal pain: Code(s): R10.11 - Right upper quadrant pain (2) Steatosis, liver: Code(s): K76.0 - Fatty (change of) liver, not elsewhere classified (3) GERD (gastroesophageal reflux disease): Code(s): K21.9 - Gastro-esophageal reflux disease without esophagitis Qualifiers: Esophagitis presence: esophagitis presence not specified Qualified Code(s): K21.9 - Gastro-esophageal reflux disease without esophagitis (4) Constipation: Code(s): K59.00 - Constipation, unspecified Qualifiers: Constipation type: chronic idiopathic constipation Qualified Code(s): K59.04 - Chronic idiopathic constipation (5) Postprandial abdominal bloating: Code(s): R14.0 - Abdominal distension (gaseous) Plan Continue Linzess. Patient can take stool softener on as needed basis. Patient was encouraged to avoid dietary triggers and late night snacking staying upright for minimum 3 hours after meals discussed with patient. Patient can continue follow-up appointment with bariatrics. Patient no longer reports abdominal pain and discomfort. Continue low FODMAP diet as discussed last visit. Patient will follow-up in 6 months, sooner on as needed basis. Patient is agreeable to this plan and verbalizes understanding of instructions. She was given the opportunity to ask questions and all questions answered. Thank you for allowing me to participate in her care Coding Level of Care Code Est Pt Level 3 (00101) Diagnoses Right upper quadrant abdominal pain R10.11 Steatosis, liver K76.0 Gastroesophageal reflux disease, unspecified whether esophagitis present K21.9 Esophagitis presence: esophagitis presence not specified Chronic idiopathic constipation K59.04 Constipation type: chronic idiopathic constipation Postprandial abdominal bloating R14.0 Time Spent (min) 25 Comment 15 minutes spent with patient and additional 10 minutes spent reviewing her records
[2023-09-01 08:25] VITALS: BP 106/56; PULSE 63; BMI 38.5
== END 2023-09-01 08:55 | disposition home or self-care (01) ==
PROVIDERS: PCP Internal Medicine; Visit Provider Nurse Practitioner Family
DX: R10.11 Right upper quadrant pain (principal); K76.0 Fatty (change of) liver, not elsewhere classified; K21.9 Gastro-esophageal reflux disease without esophagitis; K59.04 Chronic idiopathic constipation; R14.0 Abdominal distension (gaseous)
CPT/HCPCS: 99213

== ENCOUNTER → 2023-09-01 08:15 | Outpatient (BNVA) | payer OTHER, SELFPAY | PROVIDERS: PCP Internal Medicine; Visit Provider Nurse Practitioner Family | DX: R10.11 Right upper quadrant pain (principal); K21.9 Gastro-esophageal reflux disease without esophagitis; K59.04 Chronic idiopathic constipation; R14.0 Abdominal distension (gaseous) | CPT/HCPCS: 99212 ==

== ENCOUNTER 2023-10-12 08:29 | Emergency (ER) | payer OTHER, SELFPAY ==
--- NOTE | ~2023-10-12 | XR_ITS ---
EXAMINATION: XR KNEE, RIGHT CLINICAL INFORMATION: Pain COMPARISON: None available. TECHNIQUE: AP and lateral views of the right knee. FINDINGS: No acute visible fracture or dislocation. 4 mm rounded ossific focus projects along the posterior lateral soft tissues of the distal thigh, nonspecific. Joint spaces and alignment otherwise maintained. Small knee joint effusion. Soft tissues are unremarkable. XR/XR knee RT 2V IMPRESSION: 1. No acute visible fracture or dislocation. 2. 4 mm rounded ossific focus projects along the posterior lateral soft tissues of the distal thigh, nonspecific. 3. Small knee joint effusion.
--- NOTE | ~2023-10-12 | US_ITS ---
EXAMINATION: US VENOUS ULTRASOUND WITH DOPPLER LOWER EXTREMITY, RIGHT CLINICAL INFORMATION: Pain from calf through posterior fossa COMPARISON: None available. TECHNIQUE: Ultrasound of the deep veins is performed from the hip to the calf with compression sonography and color and pulse Doppler assessment. Spectral analysis with color-flow imaging is performed. FINDINGS: There is normal venous compression and respiratory variation. The visualized common femoral vein, superficial femoral vein, profunda femoral vein, popliteal vein, and the mid calf posterior tibial and peroneal veins show no evidence of deep venous thrombosis. The contralateral common femoral vein demonstrates normal respiratory variation and vascular flow. US/US venous duplex LE RT IMPRESSION: No DVT demonstrated in the right lower extremity.
[2023-10-12 08:30] VITALS: BP 133/74; PULSE 66; RESP 16; TEMP 36.8; O2SAT 98; BMI 38.3
--- NOTE | 2023-10-12 08:56 | ED.LOWEXIN ---
HPI - Extremity Injury (Lower) General Chief Complaint: Extremity Injury, Lower Stated Complaint: R leg pain Time Seen by Provider: 10/12/23 08:56 Source: patient Mode of arrival: ambulatory Limitations: no limitations History of Present Illness HPI Narrative: Patient is a 33-year-old female presenting to the emergency department with complaint of right calf pain radiating up behind knee and to back of thigh since Thursday. She went to urgent care and was prescribed flexeril and lidocaine patches but denies any improvement in pain with these medications. She reports occasional tingling to her calf. She denies any fall or other trauma. States mother does have history of blood clots. Denies any personal history of blood clots. Denies any chest pain or shortness of breath. States she woke with symptoms Thursday. Onset (ago): day(s) Injury: Right: knee Other symptoms: none Treatments prior to arrival: other Related Data Home Medications ?Medication ?Instructions ?Recorded ?Confirmed levonorgestrel 21 mcg/24 hours (8 intrauterine 05/05/22 08/25/23 yrs) 52 mg intrauterine device (Mirena) multivitamin 1 tab PO DAILY 06/02/23 08/25/23 docusate sodium 100 mg capsule 100 mg PO DAILY 09/01/23 sennosides 8.6 mg tablet (senna) 17.2 mg PO DAILY 09/01/23 Previous Rx's ?Medication ?Instructions ?Recorded famotidine 20 mg tablet (Pepcid) 20 mg PO BEDTIME #30 tabs 06/09/23 hydrocortisone 2.5 % topical cream 1 appl IN BID-QID PRN hemorrhoids 07/28/23 with perineal applicator #30 grams (Proctosol HC) linaclotide 145 mcg capsule 145 mcg PO DAILY #30 caps 07/28/23 (Linzess) omeprazole 40 mg capsule,delayed 40 mg PO DAILY #30 caps 07/28/23 release Allergies Allergy/AdvReac Type Severity Reaction Status Date / Time aspirin Allergy Swelling Verified 10/12/23 08:33 Review of Systems Review of Systems: As per HPI. Yes all other systems are reviewed and are negative Constitutional: Constitutional: Reports as per HPI [facility] Past Medical History Medical History Morbid obesity ASCUS of cervix with negative high risk HPV Abnormal uterine bleeding (AUB) Obese Prediabetes GERD (gastroesophageal reflux disease) EIN (endometrial intraepithelial neoplasia) Unsatisfactory cervical Papanicolaou smear Vitamin D deficiency Endocervical polyp Vaginitis Abnormal uterine bleeding (AUB) Pre-op evaluation Surgical History S/P laparoscopic sleeve gastrectomy History of hysteroscopy Family History Family History Mother Diabetes Hypertension Seizures Liver problem Amputated left leg Father Diabetes Hypertension Liver problem Sister Diabetes Sister Diabetes Sister Diabetes Hypertension Social History Social History Household Members: Spouse Housing: Apartment Are you a primary child care aide to a significant other at home: No Do you presently have visiting nurse or other home services: No Alcohol intake: former Patient Tobacco Use Status: Never used Tobacco Advance Directives: No Advance Directives Information Provided: Yes Do you have a plan to hurt others: No Plan service: No Current occupational status: employed 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 Blood pressure normal. Heart rate normal. Respiratory rate normal. Temperature normal. Oxygen saturation normal. Const: General: cooperative, healthy appearing and no acute distress Orientation/consciousness: oriented to person, oriented to place, oriented to time and patient oriented x3 Limitations: no limitations HEENT: Head: Yes normocephalic and Yes atraumatic Ears: external ears normal General nose exam: Normal external nose present Face and sinus: Yes face symmetric Mouth: oropharynx normal and moist mucous membranes Throat: Yes uvula midline Eyes: Pupils: Equal, round and reactive pupils present Neck: Neck: Yes normal visual inspection and Yes supple Resp: Effort & Inspection: normal respiratory effort and able to speak in complete sentences Auscultation: clear to auscultation bilaterally Cardio: Rate: regular rate Rhythm: regular rhythm Heart sounds: S1 normal heart sound present and S2 normal heart sound present GI: Palpation (GI): Soft to palpation and nontender Auscultation: normoactive bowel sounds : General: Yes no CVA tenderness Back/Spine/Pelvis: Back: no CVA tenderness Skin: General skin exam: elasticity normal and turgor normal Neuro: General: oriented to person, oriented to place, oriented to time, patient oriented x3, moves all extremities, no focal motor deficits and CN's II-XI intact bilaterally Cranial nerves: Yes Equal, round and reactive pupils present Cognition (Neuro): normal cognition Extrem: General: Yes full ROM, Yes normal exam except as noted, Yes no pedal edema and Yes no calf tenderness Right lower extremity: knee Details: normal to inspection, tenderness Location: of the popliteal fossa and knee ligament exam normal, lower leg Details: normal to inspection and tenderness Location: of the posterior calf and foot Details: vascular exam Details: dorsalis pedis pulse present and posterior tibial pulse present Psych: Mental Status: mental status grossly normal Affect: normal affect Thought process: Normal thought process present Medical Decision Making Medical Decision Making MDM Narrative: Patient is a 33-year-old female presenting to the emergency department with complaint of right calf pain radiating up behind knee and to back of thigh since Thursday. On exam patient is awake, A+Ox3, VS WNL, afebrile, normal neurological exam without focal deficits, physical exam findings as above. Given reported symptoms and physical exam findings, initial differential includes muscle strain, DVT, Lee's cyst. R knee x-ray notable for 4mm ossific focus, small effusion. Do not suspect septic joint. Ultrasound notable for no evidence of DVT. My interpretation is in agreement with the radiologist's interpretation. Results discussed with patient and all questions answered. Will provide Jude wrap, advised patient to keep leg elevated while at rest and apply ice intermittently. Will refer to orthopedics for any ongoing symptoms. Return precautions discussed at bedside. Patient verbalized understanding of and agreement with plan. Differential Diagnosis Differential Diagnoses: The differential diagnosis associated with the presentation includes As per MDM. Admission/Observation Consideration of admission/observation: Escalation of care including admission/observation considered Patient would have been admitted to the hospital had their work up had any findings where hospital admission was appropriate and their clinical presentation warranted hospital admission. Independent Interpretation I performed an independent interpretation of an: Plain X-Ray and Ultrasound Interpretation: No RLE DVT Small effusion and small ossific focus on x-ray Radiology Impression Discussion of test interpretation with radiology: I have reviewed the radiologist's reading. Radiologist Impression: US/US venous duplex LE RT IMPRESSION: No DVT demonstrated in the right lower extremity. XR/XR knee RT 2V IMPRESSION: 1. No acute visible fracture or dislocation. 2. 4 mm rounded ossific focus projects along the posterior lateral soft tissues of the distal thigh, nonspecific. 3. Small knee joint effusion. External Record Review External record reviewed: Inpatient record, Office record and Outpatient record Discharge Plan Discharge Clinical Impression: Strain of right knee Patient Disposition: Home, Self-Care Instructions: How to Use an Elastic Bandage (ED), R.I.C.E. Treatment (ED) Additional Instructions: You have been evaluated in the emergency department today for knee pain. Your evaluation did not find evidence of medical conditions requiring emergent intervention at this time. We have provided an JUDE wrap for you to use while your knee heals. Please rest, ice, and elevate your leg, and resume normal activities as tolerated. You can take 650 mg Tylenol every 6 hours as needed. It is safe to take these medications together. Please schedule an appointment for follow-up with your primary care provider this week. Return to the emergency department if you experience worsening pain, numbness, tingling, change of color in your leg, or any other concerning symptoms. Please follow-up with orthopedics for any ongoing symptoms beyond the next 1-2 weeks. Prescriptions: No Action famotidine [Pepcid] 20 mg tablet 20 mg PO BEDTIME Qty: 30 3RF Mirena 20 mcg/24 hours (8 yrs) 52 mg intrauterine device intrauterine multivitamin Tablet 1 tab PO DAILY docusate sodium 100 mg capsule 100 mg PO DAILY sennosides [senna] 8.6 mg tablet 17.2 mg PO DAILY hydrocortisone [Proctosol HC] 2.5 % cream with perineal applicator 1 appl IN BID-QID PRN (Reason: hemorrhoids) Qty: 30 2RF omeprazole 40 mg capsule,delayed release(DR/EC) 40 mg PO DAILY Qty: 30 3RF Linzess 145 mcg capsule 145 mcg PO DAILY Qty: 30 2RF Referrals: [facility] [Provider Group] Print Language: Greenlandic
[2023-10-12 12:12] VITALS: BP 108/68; PULSE 59; RESP 18; TEMP 36.9; O2SAT 99
== END 2023-10-12 12:13 | disposition home or self-care (01) ==
PROVIDERS: Emergency Provider Emergency Medicine; PCP Internal Medicine
DX: M79.604 Pain in right leg (principal); R60.0 Localized edema; Z79.899 Other long term (current) drug therapy
CPT/HCPCS: 73560; 93971; 99283; 99284

== ENCOUNTER 2023-11-02 13:18 | Outpatient (AMB) | payer OTHER, SELFPAY ==
[2023-11-02 13:27] VITALS: BMI 38.3
--- NOTE | 2023-11-02 13:27 | A.OFFVIS_ITS ---
Vital Signs 11/02/23 13:27 Height 5 ft 5 in Weight 230 lb BMI 38.3 Intake Visit Reasons: N/P RT knee sprain Intake Note: Thee is a 33 year old female who presents as a new patient with Right knee pain and giving way. The patient states that she first injured her right knee approximately 1 year ago while in [place]. The patient states that she slipped and twisted her right knee on wet pavement. Since that time her symptoms have gotten worse in spite of continued non operative treatments. She has failed the last 6 weeks of conservative treatment. She has been wearing a knee brace which gives her minimal relief. She has also tried Tylenol and anti- inflammatory medicines which gave her only mild relief. She has done physical therapy exercises which aggravated her pain. Allergies aspirin Allergy (Verified 10/12/23 08:33) Swelling Medication List - Last Reconciled 11/02/23 by Duke Costa MD docusate sodium 100 mg PO DAILY famotidine (Pepcid) 20 mg PO BEDTIME hydrocortisone 2.5% (Proctosol HC) 1 appl MS BID-QID PRN levonorgestrel (Mirena) intrauterine linaclotide (Linzess) 145 mcg PO DAILY multivitamin 1 tab PO DAILY omeprazole 40 mg PO DAILY sennosides (senna) 17.2 mg PO DAILY [facility] Medical History Morbid obesity ASCUS of cervix with negative high risk HPV Abnormal uterine bleeding (AUB) Obese Prediabetes GERD (gastroesophageal reflux disease) EIN (endometrial intraepithelial neoplasia) Unsatisfactory cervical Papanicolaou smear Vitamin D deficiency Endocervical polyp Vaginitis Abnormal uterine bleeding (AUB) Pre-op evaluation Surgical History S/P laparoscopic sleeve gastrectomy History of hysteroscopy Family History Mother Diabetes Hypertension Seizures Liver problem Amputated left leg Father Diabetes Hypertension Liver problem Sister Diabetes Sister Diabetes Sister Diabetes Hypertension Social History Household Members: Spouse Housing: Apartment Are you a primary restorative care technician to a significant other at home: No Do you presently have visiting nurse or other home services: No Alcohol intake: former Patient Tobacco Use Status: Never used Tobacco service: No Current occupational status: employed Current occupation: [employer] D[employer]ER Sexual orientation: Straight/Heterosexual Gender identity: Female Female Reproductive History Menstrual Age of Menarche: 11 Physical Exam Vital Signs: BMI result Body Mass Index 38.3 Const Other: Well-nourished well-developed very friendly female awake alert and oriented x3 in no acute distress Extrem Other: Bilateral lower extremity examination shows good capillary refill, no skin lesions noted, normal sensation light touch Right knee examination shows a minimal effusion, no crepitus with range of mot ion, tenderness along her medial joint line, positive Guru's test, no instability Results Reviewed Results Reviewed: Standing full weight-bearing x-rays of the patient's right knee show no significant degenerative changes or bony abnormalities Assessment & Plan Assessment & Plan (1) Right knee pain: Code(s): M25.561 - Pain in right knee Category: Medical Plan Ms. Sabiha Arana presents with progressively worsening right knee pain and mechanical symptoms most likely due to a tear of her medial meniscus. Thus, I will send the patient for an MRI of her right knee for further evaluation. I will see her back once the MRI is completed to discuss the findings and treatment options. Feel free to call me at any time should questions regarding her orthopedic management arise. Thank you very much for asking me to see this very friendly patient. I spent 20 minutes in reviewing the patient's records and imaging studies, seeing the patient and documenting in the medical record. Orders: Orders MR knee RT wo con Today M25.561 - Pain in right knee Coding Level of Care Code New Pt Level 3 (23210) Diagnoses Right knee pain M25.561
== END 2023-11-02 14:00 | disposition home or self-care (01) ==
LOC: HO.HOS 13:18
PROVIDERS: PCP Internal Medicine; Visit Provider Orthopaedic Surgery
DX: M25.561 Pain in right knee (principal)
CPT/HCPCS: 99203

== ENCOUNTER → 2023-11-02 13:18 | Outpatient (BNVA) | payer OTHER, SELFPAY | PROVIDERS: PCP Internal Medicine; Visit Provider Orthopaedic Surgery | DX: M25.561 Pain in right knee (principal) | CPT/HCPCS: 99202 ==

== ENCOUNTER 2023-11-23 08:47 | Outpatient (AMB) | payer OTHER, SELFPAY ==
--- NOTE | 2023-11-23 09:07 | A.OFFVIS_ITS ---
VS Expanded 11/23/23 09:14 BP 109/56 L Blood Pressure Location Rt brachial Blood Pressure Position Sitting Pulse 61 Pulse Source Pulse Oximeter Temp 97.7 F Temperature Source Tympanic Pulse Oximetry 97 Oxygen Delivery Method Room Air Height 5 ft 5 in Weight 234 lb 6.4 oz BMI 39.0 Body Fat % 45.6 Body Fat Mass 107.0 Fat Free Mass 127.4 Visceral Fat Rating 11.0 Body Water % 39.0 Body Water Mass 91.4 Muscle Mass/Score 121.0 Basal Metabolic Rate/Score 1,817 Intake Visit Reasons: (OV) PO LSG 11/19/21 Digital Media Representative Required: No Allergies aspirin Allergy (Verified 11/23/23 09:18) Swelling Medication List - Last Reconciled 11/23/23 by DEMETRIS Wright docusate sodium 100 mg PO DAILY famotidine (Pepcid) 20 mg PO BEDTIME hydrocortisone 2.5% (Proctosol HC) 1 appl RI BID-QID PRN levonorgestrel (Mirena) intrauterine linaclotide (Linzess) 145 mcg PO DAILY multivitamin 1 tab PO DAILY omeprazole 40 mg PO DAILY sennosides (senna) 17.2 mg PO DAILY HPI Comments Details: This?a?32?yo female who is s/p LSG without hiatal hernia repair on?11/19/[address] Garcia. Presents for 2 year post op visit. Weight today is 234.4 pounds, with a BMI of 39.? There has been a 142.6 pound weight loss,(initial weight 377 pounds) since starting the program on 06/03/21 reflecting a 37.8% total body weight loss and a weight loss of 85.9 pounds since surgery (operative weight 320.3 pounds) reflecting a 26.8% TBWL since surgery.? No complaints of nausea, emesis, abdominal pain, but does have intermittent reflux. She states that it is intermittent. Her PCP has Rx Pantoprazole 20 mg daily. She also states she has had a second dose in the evening on occasion. ? Reports infrequent but normal bowel movements every 1-2 days and uses stool softeners regularly. Present meal plan includes: RTD Premier protein shake over 2-2.5 hrs, 8-10 4 oz chicken or eggs, salmon HB egg or meal 4 oz protein 4 oz salad/ veg Drinking 48-64 oz water ? Exercise routine includes: none Any post op complications: none JOSE DAVID: never DM: never HTN: never Hyperlipidemia: never GERD:?0-5 scale ??0 = no symptoms ??1 = symptoms noticeable but not bothersome 2 =symptoms bothersome but not daily ? 3 = symptoms bothersome and daily 4 = symptoms affect daily activities 5 = symptoms are incapacitating, unable to do daily activities ? How bad is the heartburn: 2 ? Heartburn while lying down: 0 ? Heartburn when standing up: 0 ? Heartburn after meals: 2 ? Does heartburn change your diet: 0 ? Does heartburn wake you up from sleep: 0 ? Do you have difficulty swallowin ? Do you have pain with swallowin ? If you take medicine for your reflux, does this affect your daily life: 0 Satisfaction with present condition - satisfied or not satisfied: not satisified PFSH Medical History Morbid obesity ASCUS of cervix with negative high risk HPV Abnormal uterine bleeding (AUB) Obese Prediabetes GERD (gastroesophageal reflux disease) EIN (endometrial intraepithelial neoplasia) Unsatisfactory cervical Papanicolaou smear Vitamin D deficiency Endocervical polyp Vaginitis Abnormal uterine bleeding (AUB) Pre-op evaluation Surgical History S/P laparoscopic sleeve gastrectomy History of hysteroscopy Family History Mother Diabetes Hypertension Seizures Liver problem Amputated left leg Father Diabetes Hypertension Liver problem Sister Diabetes Sister Diabetes Sister Diabetes Hypertension Social History Household Members: Spouse Housing: Apartment Are you a primary physician primary care sports medicine to a significant other at home: No Do you presently have visiting nurse or other home services: No Alcohol intake: former Patient Tobacco Use Status: Never used Tobacco service: No Current occupational status: employed 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 Sexual orientation: Straight/Heterosexual Gender identity: Female Female Reproductive History Menstrual Age of Menarche: 11 Physical Exam Const General: cooperative and no acute distress Orientation/consciousness: patient oriented x3 Resp Effort & Inspection: normal respiratory effort Auscultation: clear to auscultation bilaterally Cardio Rate: regular rate Rhythm: regular rhythm GI Inspection: Yes normal to inspection and Yes incision (well healed) Palpation (GI): Soft to palpation and no masses Neuro General: patient oriented x3 Assessment & Plan Assessment & Plan (1) Obese: Code(s): E66.9 - Obesity, unspecified Category: Medical Plan: Check 2 year postop labs. Discussed the critical element of exercise. She states that she is going to joined [employer]. Discussed the importance of cardiovascular activity including treadmill, elliptical, stationary bike, with a goal of burning 300 calories per day 7 days a week or 2000 calories per week. She states that she will do this. We will have her return to the office in 6 weeks. Orders: Orders Hemoglobin A1c Today E50.9 - Vitamin A deficiency, unspecified, E66.9 - Obesity, unspecified, K74.00 - Hepatic fibrosis, unspecified, R73.03 - Prediabetes Complete Blood Count Auto Diff Today E50.9 - Vitamin A deficiency, unspecified, E66.9 - Obesity, unspecified, K74.00 - Hepatic fibrosis, unspecified, R73.03 - Prediabetes Vitamin A Today E50.9 - Vitamin A deficiency, unspecified, E66.9 - Obesity, unspecified, K74.00 - Hepatic fibrosis, unspecified, R73.03 - Prediabetes Vitamin D 25-OH Total Today E50.9 - Vitamin A deficiency, unspecified, E66.9 - Obesity, unspecified, K74.00 - Hepatic fibrosis, unspecified, R73.03 - Prediabetes Basic Metabolic Panel Today E50.9 - Vitamin A deficiency, unspecified, E66.9 - Obesity, unspecified, K74.00 - Hepatic fibrosis, unspecified, R73.03 - Prediabetes Insulin Today E50.9 - Vitamin A deficiency, unspecified, E66.9 - Obesity, unspecified, K74.00 - Hepatic fibrosis, unspecified, R73.03 - Prediabetes Lipid Panel Today E50.9 - Vitamin A deficiency, unspecified, E66.9 - Obesity, unspecified, K74.00 - Hepatic fibrosis, unspecified, R73.03 - Prediabetes IRON PROFILE Today E50.9 - Vitamin A deficiency, unspecified, E66.9 - Obesity, unspecified, K74.00 - Hepatic fibrosis, unspecified, R73.03 - Prediabetes Vitamin B12 and Folate Today E50.9 - Vitamin A deficiency, unspecified, E66.9 - Obesity, unspecified, K74.00 - Hepatic fibrosis, unspecified, R73.03 - Prediabetes Zinc Today E50.9 - Vitamin A deficiency, unspecified, E66.9 - Obesity, unspecified, K74.00 - Hepatic fibrosis, unspecified, R73.03 - Prediabetes C Reactive Protein Today E50.9 - Vitamin A deficiency, unspecified, E66.9 - Obesity, unspecified, K74.00 - Hepatic fibrosis, unspecified, R73.03 - Prediabetes Vitamin B1 Today E50.9 - Vitamin A deficiency, unspecified, E66.9 - Obesity, unspecified, K74.00 - Hepatic fibrosis, unspecified, R73.03 - Prediabetes TSH reflex Free T4 Today E50.9 - Vitamin A deficiency, unspecified, E66.9 - Obesity, unspecified, K74.00 - Hepatic fibrosis, unspecified, R73.03 - Prediabetes Ferritin Today E50.9 - Vitamin A deficiency, unspecified, E66.9 - Obesity, unspecified, K74.00 - Hepatic fibrosis, unspecified, R73.03 - Prediabetes
[2023-11-23 09:14] VITALS: BP 109/56; PULSE 61; TEMP 36.5; O2SAT 97; BMI 39.0
== END 2023-11-23 09:28 | disposition home or self-care (01) ==
PROVIDERS: PCP Internal Medicine; Visit Provider Physician Assistant Surgical
DX: E66.9 Obesity, unspecified (principal); Z68.39 Body mass index [BMI] 39.0-39.9, adult; Z90.3 Acquired absence of stomach [part of]; Z98.84 Bariatric surgery status
CPT/HCPCS: 99214

== ENCOUNTER → 2023-11-23 08:47 | Outpatient (BNVA) | payer OTHER, SELFPAY | PROVIDERS: PCP Internal Medicine; Visit Provider Physician Assistant Surgical | DX: E66.9 Obesity, unspecified (principal); Z68.39 Body mass index [BMI] 39.0-39.9, adult | CPT/HCPCS: 99212 ==

== ENCOUNTER 2023-12-21 07:11 | Outpatient (REF) | payer OTHER, SELFPAY ==
[2023-12-21 07:23] LABS: MANUAL DIFF FLAG NO
[2023-12-21 07:41] LABS: Basophils Absolute Auto 0.1 X10*3/uL (0.0-0.2); Basophils Percent Auto 0.7 % (0-2); Eosinophils Absolute Auto 0.7 X10*3/uL (0.0-0.4); Hematocrit 38.6 % (37.0-47.0); Hemoglobin 13.6 g/dl (12.0-16.0); Imm Gran Abs Auto 0.01 X10*3/uL (0.00-0.03); Imm Gran Pct Auto 0.1 % (0.0-0.4); Lymphocytes Percent Auto 26.7 % (20-40); Mean Corpuscular HGB Conc 35.2 g/dl (31.0-35.0); Mean Corpuscular Hemoglobin 31.1 pg (27.0-33.0); Mean Corpuscular Volume 88.1 fL (80.0-98.0); Mean Platelet Volume 10.8 fL (9.4-12.3); Monocytes Absolute Auto 0.5 X10*3/uL (0.1-1.2); Monocytes Percent Auto 6.6 % (2-11); Neutrophils Absolute Auto 4.1 x10*3/uL (2.0-8.3); Neutrophils Percent Auto 55.9 % (45-73); Platelet Count 181 X10*3/uL (160-400); Red Blood Count 4.38 X10*6/uL (4.20-5.50); Red Cell Distribution Width 12.4 % (11.0-16.0); White Blood Count 7.4 X10*3/uL (4.8-10.8)
[2023-12-21 08:00] LABS: Estimated Average Glucose 91 mg/dL; Hemoglobin A1c % 4.8 % (<6.0)
[2023-12-21 08:12] LABS: Anion Gap 11 (12-20); Blood Urea Nitrogen 12 mg/dL (9-16); C Reactive Protein 0.68 mg/dL (< or = 0.50); Calcium 9.5 mg/dL (8.4-10.2); Carbon Dioxide 24 mmol/L (22-29); Chloride 110 mmol/L (96-108); Cholesterol 152 mg/dL (<200); Estimated Glomerular Filt Rate > 60; Glucose Random 87 mg/dL (60-115); HDL Cholesterol 38 mg/dL (>40); Iron 82 mcg/dL (30-160); LDL Cholesterol Calculated 103 mg/dL (<100); Percent Iron Saturation 41 % (15-50); Potassium 3.8 mmol/L (3.3-5.1); Sodium 141 mmol/L (135-145); Total Iron Binding Capacity 198 mcg/dL (228-428); Triglycerides 57 mg/dL (<150); Unsaturated Iron Binding 116 ug/dL
[2023-12-21 08:24] LABS: Ferritin 228 ng/mL (10-122); Insulin 15 uU/mL (2-29); TSH reflex Free T4 2.88 uIU/mL (0.32-4.0)
[2023-12-21 08:28] LABS: Folate 14.1 ng/mL (> or = 4.0); Vitamin B12 1272 pg/mL (200-900)
[2023-12-24 05:04] LABS: Vitamin A 39 mcg/dL (38-98)
[2023-12-24 05:59] LABS: Zinc 66 mcg/dL (60-130)
[2023-12-28 13:39] LABS: Vitamin B1 13 nmol/L (8-30)
== END 2023-12-21 07:12 | disposition home or self-care (01) ==
LOC: HO.MRI 07:11
PROVIDERS: Absent Provider Physician Assistant Surgical; PCP Internal Medicine; Visit Provider Orthopaedic Surgery
DX: E66.9 Obesity, unspecified (principal); E50.9 Vitamin A deficiency, unspecified; K74.00 Hepatic fibrosis, unspecified; R73.03 Prediabetes
CPT/HCPCS: 36415; 80048; 80061; 82306; 82607; 82728; 82746; 83036; 83525; 83540; 84425; 84443; 84590; 84630; 85025; 86140

== ENCOUNTER 2023-12-30 07:51 | Outpatient (AMB) | payer OTHER, SELFPAY ==
--- NOTE | 2023-12-30 07:58 | MHC.PC.OV ---
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 Required: No Accompanied by: Self / Same As Patient Allergies aspirin Allergy (Verified 12/30/23 08:11) Swelling Medication List - Last Reconciled 12/30/23 by Migdalia Vaughan MD docusate sodium 100 mg PO DAILY levonorgestrel (Mirena) intrauterine linaclotide (Linzess) 145 mcg PO DAILY multivitamin 1 tab PO DAILY Tobacco use date assessed: 12/30/23 Dental Screening Dental Screen Date: 12/30/23 Did you have a dental visit in the last 12 months?: No Did you have a dental problem in the last 6 months where you did not have access to dental care?: No Was dental information given to patient?: Patient has dentist HPI HPI Comments History of Present Illness Details This is a 33-year-old female that comes for her physical exam. Pap smear was done 2022. No chest pain or shortness on breath. She is obese with a BMI of 37.9 and follows with weight management. Complains of left shoulder pain that started about a year ago with limited elevation and abduction and declines physical therapy. I will order x-ray and refer her to ortho. Also complains of bilateral hand pain. Declines Tdap. [facility] Medical History (Updated 12/30/23 @ 08:28 by Migdalia Vaughan MD) Morbid obesity ASCUS of cervix with negative high risk HPV Abnormal uterine bleeding (AUB) Obese Prediabetes GERD (gastroesophageal reflux disease) EIN (endometrial intraepithelial neoplasia) Unsatisfactory cervical Papanicolaou smear Vitamin D deficiency Endocervical polyp Vaginitis Abnormal uterine bleeding (AUB) Pre-op evaluation Surgical History S/P laparoscopic sleeve gastrectomy History of hysteroscopy Family History (Updated 12/30/23 @ 08:15 by Migdalia Vaughan MD) Mother Diabetes Hypertension Seizures Liver problem Amputated left leg ESRD on hemodialysis Father Diabetes Hypertension Liver problem Sister Diabetes Sister Diabetes Sister Diabetes Hypertension Social History (Updated 12/30/23 @ 08:16 by Migdalia Vaughan MD) Household Members: Spouse Housing: Apartment Are you a primary day care center director to a significant other at home: No Do you presently have visiting nurse or other home services: No Alcohol intake: current Alcohol intake frequency: holidays/special occasions only Alcohol type: other Patient Tobacco Use Status: Never used Tobacco e-Cigarette/Vaping Use: Never Used Second Hand Smoke Exposure: No service: No Current occupational status: employed 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 Current occupational exposures/hazards: No Sexual orientation: Straight/Heterosexual Gender identity: Female Cognitive needs: No Hearing needs: No Vision needs: No Female Reproductive History Menstrual Age of Menarche: 11 Questionnaire Thrive Questionnaire Date Thrive assessed: 12/30/23 I am a: Patient What is your living situation today?: I have a steady place to live Within the past 12 months, did the food you bought not last and you didn't have the money to get more?: Never true Within the past 12 months, did you worry whether your food would run out before you got money to buy more?: Never true Do you have trouble paying for medicines?: No Do you have trouble getting transportation to medical appointments?: No Do you have trouble paying your heating and electricity bill?: No Do you have trouble taking care of your child, family member or friend?: No Do you have trouble with day-to-day activities such as bathing, preparing meals, shopping, managing finances, etc.?: No Are you currently unemployed and looking for a job?: No Are you interested in more education?: No Please select the resources that you would like help with: None Currently or been in a relationship where the following occur: No concerns reported THRIVE Score: 0 AUDIT C Alcohol Use Questionnaire (AUDIT-C) 1. How often do you have a drink containing alcohol?: Monthly or less 2. How many drinks containing alcohol do you have on a typical day when you are drinking?: 1 or 2 3. How often do you have six or more drinks on one occasion?: Never Total Score: 1 Score Reviewed/Action Taken: No ELBA-7 AMB Questionnaire ELBA-7 Date ELBA - 7 assessed: 08/25/23 Source: Developed by Drs. Bhupendra Donovan, Fany Jernigan, Channing Chacon and colleagues, with an educational taylor from [employer]. Review of Systems Const All systems reviewed & are unremarkable except as noted in HPI and below Card Denies chest pain at rest, Denies chest pain with activity, Denies edema, Denies irregular heart rhythm, Denies claudication, Denies dyspnea, Denies dyspnea on exertion, Denies orthopnea, Denies paroxysmal nocturnal dyspnea and Denies slow heart rate Resp Denies cough, Denies dyspnea and Denies dyspnea on exertion GI Denies abdominal pain, Denies change in bowel habits, Denies excessive flatus, Denies nausea and Denies vomiting Denies urinary incontinence, Denies urinary hesitancy and Denies urinary urgency Musc Denies abnormal gait, Denies atrophy, Denies deformity, Reports arthralgias and Reports limited range of motion Skin/Breast Denies bleeding lesions, Denies changing lesions and Denies rash Neuro Denies abnormal gait, Denies behavioral changes and Denies lack of coordination Psych Denies behavioral changes Physical exam (Primary Care) Vital Signs: Last Vital Signs BP 108/72 12/30/23 07:59 BMI result Body Mass Index 37.9 BMI Assessment/Plan discussion: High BMI High, discussed plan: lifestyle, weight reduction, dietary and physical activity Tobacco/Smoking Status: Tobacco use Status Tobacco use date assessed 12/30/23 12/30/23 08:06 Patient Tobacco Use Status Never used Tobacco 12/30/23 08:06 e-Cigarette/Vaping Use Never Used 12/30/23 08:06 Thrive Assessment: Date of Thrive Assessment Date Thrive assessed 12/30/23 12/30/23 08:06 Currently or been in a relationship where the following occur: No concerns reported [facility] Head: Yes normal to inspection, Yes normocephalic and Yes atraumatic Ears: external ears normal Eyes General: appearance normal, both eyes and all related structures Eyelids: Yes eyelids normal Conjunctivae: conjunctivae normal Neck Neck: Yes normal visual inspection and Yes supple Resp Effort & Inspection: normal respiratory effort Auscultation: clear to auscultation bilaterally Cardio Jugular venous distension: no JVD Rate: regular rate Rhythm: regular rhythm Heart sounds: S1 normal heart sound present and S2 normal heart sound present GI Inspection: Yes normal to inspection Palpation (GI): Soft to palpation and nontender Auscultation: normal bowel sounds Skin General skin exam: no rashes or lesions noted Neuro General: no focal motor deficits Extrem Left upper extremity: shoulder/upper arm Details: abnormal ROM Details: pain with active ROM Psych Appearance: grossly normal Assessment and Plan Assessment & Plan (1) Physical exam: Code(s): Z00.00 - Encounter for general adult medical examination without abnormal findings Plan: Repeat in a year. (2) Left shoulder pain: Code(s): M25.512 - Pain in left shoulder Qualifiers: Chronicity: chronic Qualified Code(s): M25.512 - Pain in left shoulder; G89.29 - Other chronic pain Plan: X-ray ordered. Referred to Ortho. (3) Right hand pain: Code(s): M79.641 - Pain in right hand Plan: X-ray ordered. (4) Left hand pain: Code(s): M79.642 - Pain in left hand Plan: X-ray ordered. Orders: Orders XR hand LT 2V Today M79.642 - Pain in left hand XR hand RT 2V Today M79.641 - Pain in right hand XR shoulder LT min 2V Today M25.512 - Pain in left shoulder Referrals Orthopedics Referral M25.512 - Pain in left shoulder Review Declined TDap/Td: 12/30/23 Coding Level of Care Code Est Pt Level 3 (96527) Est Pt Prev Care 18-39y(56934) Diagnoses Physical exam Z00.00 Chronic left shoulder pain M25.512; G89.29 Chronicity: chronic Right hand pain M79.641 Left hand pain M79.642 Time Spent (min) 33
[2023-12-30 07:59] VITALS: BP 108/72; BMI 37.9
== END 2023-12-30 08:23 | disposition home or self-care (01) ==
PROVIDERS: PCP Internal Medicine; Visit Provider Internal Medicine
DX: Z00.00 Encounter for general adult medical examination without abnormal findings (principal); M25.512 Pain in left shoulder; G89.29 Other chronic pain; M79.641 Pain in right hand; M79.642 Pain in left hand
CPT/HCPCS: 99213; 99395

== ENCOUNTER 2024-01-04 10:15 | Outpatient (AMB) | payer OTHER, SELFPAY ==
--- NOTE | 2024-01-04 10:16 | MHC.OFFVISWM ---
VS Expanded 01/04/24 10:22 BP 109/55 L Blood Pressure Location Rt brachial Blood Pressure Position Sitting Pulse 66 Pulse Source Pulse Oximeter Temp 97.2 F Temperature Source Tympanic Pulse Oximetry 93 Oxygen Delivery Method Room Air Height 5 ft 5 in Weight 221 lb 6.4 oz BMI 36.8 Body Fat % 45.6 Body Fat Mass 101.0 Fat Free Mass 120.4 Visceral Fat Rating 10.0 Body Water % 38.9 Body Water Mass 86.2 Muscle Mass/Score 114.2 Basal Metabolic Rate/Score 1,718 Intake Visit Reasons: (OV) PO LSG 11/19/21 Allergies aspirin Allergy (Verified 01/04/24 10:26) Swelling HPI Comments Details: This?a?32?yo female who is s/p LSG without hiatal hernia repair on?11/19/[address] Garcia. Presents for 2 year post op visit. She was last seen in the office in November, her weight at that time was 234.4 lb with a BMI of 39. Weight today is 221.4 lb with a BMI of 36.8.? There has been a 155.6 pound weight loss,(initial weight 377 pounds) since starting the program on 06/03/21 reflecting a 41.2% total body weight loss and a weight loss of 98.9 pounds since surgery (operative weight 320.3 pounds) reflecting a 30.8% TBWL since surgery.? She did change her meal plan to remove the 2nd meal and substituted a ready to drink Premier protein shake which she has found to be much more satisfactory. Present meal plan includes: RTD Premier protein shake over 2-2.5 hrs, 8-10 4 oz chicken or eggs, salmon another shake Drinking 48-64 oz water ? Exercise routine includes: none PFSH Medical History Morbid obesity ASCUS of cervix with negative high risk HPV Abnormal uterine bleeding (AUB) Obese Prediabetes GERD (gastroesophageal reflux disease) EIN (endometrial intraepithelial neoplasia) Unsatisfactory cervical Papanicolaou smear Vitamin D deficiency Endocervical polyp Vaginitis Abnormal uterine bleeding (AUB) Pre-op evaluation Surgical History S/P laparoscopic sleeve gastrectomy History of hysteroscopy Family History Mother Diabetes Hypertension Seizures Liver problem Amputated left leg ESRD on hemodialysis Father Diabetes Hypertension Liver problem Sister Diabetes Sister Diabetes Sister Diabetes Hypertension Social History Household Members: Spouse Housing: Apartment Are you a primary multi care technician to a significant other at home: No Do you presently have visiting nurse or other home services: No Alcohol intake: current Alcohol intake frequency: holidays/special occasions only Alcohol type: other Patient Tobacco Use Status: Never used Tobacco e-Cigarette/Vaping Use: Never Used Second Hand Smoke Exposure: No service: No Current occupational status: employed 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 Current occupational exposures/hazards: No Sexual orientation: Straight/Heterosexual Gender identity: Female Cognitive needs: No Hearing needs: No Vision needs: No Female Reproductive History Menstrual Age of Menarche: 11 Physical Exam Vital Signs: Last Vital Signs Temp 97.2 F 01/04/24 10:22 Pulse 66 01/04/24 10:22 BP 109/55 L 01/04/24 10:22 Pulse Ox 93 01/04/24 10:22 Oxygen Delivery Method Room Air 01/04/24 10:22 BMI result Body Mass Index 36.8 Const General: healthy appearing and no acute distress Resp Effort & Inspection: normal respiratory effort Auscultation: clear to auscultation bilaterally Cardio Rate: regular rate Rhythm: regular rhythm GI Auscultation: normal bowel sounds Extrem General: Yes normal to inspection Assessment & Plan Assessment & Plan (1) S/P laparoscopic sleeve gastrectomy: Comment: 11/19/2021 Code(s): Z98.84 - Bariatric surgery status Category: Surgical Plan: Strongly encouraged to joined [employer] gym. She continues to do no exercise. She has lost approximately 14 lb since her last visit, just changing her meal plan on her own. She was again encouraged to join [employer] and exercise regularly as previously discussed. We will have her return to the office in approximately 4-6 weeks. She was encouraged to text with any questions or concerns.
[2024-01-04 10:22] VITALS: BP 109/55; PULSE 66; TEMP 36.2; O2SAT 93; BMI 36.8
== END 2024-01-04 10:47 | disposition home or self-care (01) ==
PROVIDERS: PCP Internal Medicine; Visit Provider Physician Assistant Surgical
DX: E66.9 Obesity, unspecified (principal); Z68.36 Body mass index [BMI] 36.0-36.9, adult; Z90.3 Acquired absence of stomach [part of]; Z98.84 Bariatric surgery status
CPT/HCPCS: 99213

== ENCOUNTER → 2024-01-04 10:15 | Outpatient (BNVA) | payer OTHER, SELFPAY | PROVIDERS: PCP Internal Medicine; Visit Provider Physician Assistant Surgical | DX: Z98.84 Bariatric surgery status (principal) | CPT/HCPCS: 99212 ==

== ENCOUNTER 2024-01-11 09:09 | Outpatient (REF) | payer OTHER, SELFPAY ==
--- NOTE | ~2024-01-11 | XR_ITS ---
EXAMINATION: XR SHOULDER, LEFT CLINICAL INFORMATION: Pain in the left shoulder. COMPARISON: None available. TECHNIQUE: Three views of the left shoulder. FINDINGS: No fracture. Glenohumeral and acromioclavicular alignment is anatomic with normal joint space. Small anterior subacromial spur. No abnormal soft tissue calcifications. XR/XR shoulder LT min 2V IMPRESSION: 1. No acute osseous findings at the left shoulder. 2. Small anterior subacromial spur.
== END 2024-01-11 09:10 | disposition home or self-care (01) ==
LOC: HO.HOSX 09:09
PROVIDERS: Visit Provider Physician Assistant
DX: M75.102 Unspecified rotator cuff tear or rupture of left shoulder, not specified as traumatic (principal)
CPT/HCPCS: 20610; 73030; 99212; J1010

== ENCOUNTER 2024-01-11 09:12 | Outpatient (AMB) | payer OTHER, SELFPAY ==
--- NOTE | 2024-01-11 09:30 | A.OFFVIS_ITS ---
Vital Signs 01/11/24 09:33 Height 5 ft 5 in Weight 222 lb BMI 36.9 Handedness Right Intake Visit Reasons: New Prob- Left Shoulder Pain Intake Note: Thee is a 33 year old right hand dominant female who presents today for a evaluation of her left shoulder pain. No hx of injury. No hx of previous treatment. Patient reports ongoing pain for about a year. She states that her pain is on the anterior aspect of the shoulder and sometimes it radiates up to her neck. Pain is worse when laying down and lifting her arm up. Patient has tried and failed icing, lidocaine patches and NSAIDs/Tylenol. 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 The patient presented to her PCP on 12/30/23 with a complaint of left shoulder pain present for the past year and bilateral hand pain. X-rays were ordered but no obtained. She also declined to attend physical therapy. ? ? While in the office today, the patient reports ongoing pain for a year, since 2022. She claims her pain is along the anterior aspect of the left shoulder with occasional radiation to her neck. She reports the pain as gradually increasing over the past year, causing issues with her strength and ROM. She states the pain increases when laying down or lifting her left upper extremity. Patient denies any prior injury. She confirms participating in physical therapy with no relief. She claims to have tried and failed to get relief with the use of ice, lidocaine patches, NSAIDs and Tylenol. ? ? Patient denies a history of diabetes mellitus. ? [facility] Medical History Morbid obesity ASCUS of cervix with negative high risk HPV Abnormal uterine bleeding (AUB) Obese Prediabetes GERD (gastroesophageal reflux disease) EIN (endometrial intraepithelial neoplasia) Unsatisfactory cervical Papanicolaou smear Vitamin D deficiency Endocervical polyp Vaginitis Abnormal uterine bleeding (AUB) Pre-op evaluation Surgical History S/P laparoscopic sleeve gastrectomy History of hysteroscopy Family History Mother Diabetes Hypertension Seizures Liver problem Amputated left leg ESRD on hemodialysis Father Diabetes Hypertension Liver problem Sister Diabetes Sister Diabetes Sister Diabetes Hypertension Social History Household Members: Spouse Housing: Apartment Are you a primary career resource technician to a significant other at home: No Do you presently have visiting nurse or other home services: No Alcohol intake: current Alcohol intake frequency: holidays/special occasions only Alcohol type: other Patient Tobacco Use Status: Never used Tobacco e-Cigarette/Vaping Use: Never Used Second Hand Smoke Exposure: No service: No Current occupational status: employed 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 Current occupational exposures/hazards: No Sexual orientation: Straight/Heterosexual Gender identity: Female Cognitive needs: No Hearing needs: No Vision needs: No Female Reproductive History Menstrual Age of Menarche: 11 Review of Systems Const All systems reviewed & are unremarkable except as noted in HPI and below Physical Exam Vital Signs: BMI result Body Mass Index 36.9 Const General: cooperative and no acute distress Orientation/consciousness: patient oriented x3 Resp Effort & Inspection: normal respiratory effort and able to speak in complete sentences Cardio Peripheral pulses: Peripheral pulses 2+ throughout Skin General skin exam: no rashes or lesions noted Neuro General: patient oriented x3 Extrem Other: Left shoulder: Normal to inspection. No ecchymosis, erythema, or edema. Forward flexion and abduction lacking 45 degrees. External rotation to end range. Able to reach T-12. Pain with cross-body reach. 4/5 strength with empty can. Negative drop arm. NVI.? Office Procedures Joint Injection/Aspiration Joint Injection/Aspiration Primary Site: left shoulder Prep: site was prepped using aseptic technique, ethochloride spray was applied and injection warnings given Injected: 80 mg of, DepoMedrol, with 8 mL of (2% plain lido ) and in the subcromial space Approach Used: posterolateral Procedure: The patient tolerated the procedure well, but had some pain with the injection and there was some relief with the local anesthesia Coding 04668 - Large joint Procedure code (CPT) selection complete Assessment & Plan Assessment & Plan (1) Painful arc syndrome of left shoulder: Code(s): M75.102 - Unspecified rotator cuff tear or rupture of left shoulder, not specified as traumatic Category: Medical Plan Ms. Sabiha Arana is a 33-year-old right hand dominant female, who is Cypriot speaking, presents in the office today for an evaluation of left shoulder pain. The patient presented to her PCP on 12/30/23 with a complaint of left shoulder pain present for the past year and bilateral hand pain. X-rays were ordered but no obtained. She also declined to attend physical therapy. ? ? While in the office today, the patient reports ongoing pain for a year, since 2022. She claims her pain is along the anterior aspect of the left shoulder with occasional radiation to her neck. She reports the pain as gradually increasing over the past year, causing issues with her strength and ROM. She states the pain increases when laying down or lifting her left upper extremity. Patient denies any prior injury. She confirms participating in physical therapy with no relief. She claims to have tried and failed to get relief with the use of ice, lidocaine patches, NSAIDs and Tylenol. ? ? Patient denies a history of diabetes mellitus.? ? The patient was offered a cortisone injection in the left shoulder with 80 mg of Depo-Medrol. The patient was explained the risks, benefits, and alternatives to receiving this injection. After receiving consent for the injection, the patient had the procedure done while in the office today. The patient tolerated the procedure well with no complications.? ? We discussed the role of formal physical therapy, but the patient reports she has attended and does not wish to attend again. Therefore, the patient was encouraged to continue to work on her at home exercise program for ROM. Follow- up will be PRN, or sooner if needed. ? ? X-rays of the left shoulder which were obtained while in the office today and were reviewed by me, Renuka Rodriguez PA-C, revealed no acute fractures or dislocation.? Orders: Orders XR shoulder LT min 2V Today M25.519 - Pain in unspecified shoulder Patient Instructions: Scribed by Juliet Moreira medical management specialist, for Renuka Rodriguez PA-C on 01/11/2024 at 9:16 am, EST.? Coding Level of Care Code Est Pt Level 3 (74879) Diagnoses Painful arc syndrome of left shoulder M75.102 CPT Codes Coding - 98617 Large joint: 48000 - Large joint ([id number])
[2024-01-11 09:33] VITALS: BMI 36.9
== END 2024-01-11 09:57 | disposition home or self-care (01) ==
PROVIDERS: PCP Internal Medicine; Visit Provider Physician Assistant
DX: M75.102 Unspecified rotator cuff tear or rupture of left shoulder, not specified as traumatic (principal)
CPT/HCPCS: 20610; 99213

== ENCOUNTER 2024-02-17 13:14 | Outpatient (AMB) | payer OTHER, SELFPAY ==
--- NOTE | 2024-02-17 13:25 | A.OFFVIS_ITS ---
VS Expanded 02/17/24 13:30 BP 101/58 L Blood Pressure Location Rt brachial Blood Pressure Position Sitting Pulse 65 Pulse Source Pulse Oximeter Temp 97.6 F Temperature Source Tympanic Pulse Oximetry 96 Oxygen Delivery Method Room Air Height 5 ft 5 in Weight 218 lb 6.4 oz BMI 36.3 Body Fat % 43.8 Body Fat Mass 95.6 Fat Free Mass 122.6 Visceral Fat Rating 10.0 Body Water % 40.3 Body Water Mass 88.0 Muscle Mass/Score 116.4 Basal Metabolic Rate/Score 1,734 Intake Visit Reasons: (OV) PO LSG 11/19/21 Allergies aspirin Allergy (Verified 02/17/24 13:33) Swelling HPI Comments Details: This?a?34?yo female who is s/p LSG without hiatal hernia repair on?11/19/[address] Garcia. Presents for 2 year 2 month post op visit. Weight today is 218.4 lb with a BMI of 36.3.? There has been a 158.6 pound weight loss,(initial weight 377 pounds) since starting the program on 06/03/21 reflecting a 42% total body weight loss and a weight loss of 101.9 pounds since surgery (operative weight 320.3 pounds) reflecting a 31.8% TBWL since surgery.? She has lost approximately 3 lb since her last visit about 1 month ago. She changed to equate RTD shake Present meal plan includes: Equate RTD shake (30 gm), 8-10 4 oz chicken or eggs, salmon another shake Drinking 48-64 oz water ? Exercise routine includes: none PFSH Medical History Morbid obesity ASCUS of cervix with negative high risk HPV Abnormal uterine bleeding (AUB) Obese Prediabetes GERD (gastroesophageal reflux disease) EIN (endometrial intraepithelial neoplasia) Unsatisfactory cervical Papanicolaou smear Vitamin D deficiency Endocervical polyp Vaginitis Abnormal uterine bleeding (AUB) Pre-op evaluation Surgical History S/P laparoscopic sleeve gastrectomy History of hysteroscopy Family History Mother Diabetes Hypertension Seizures Liver problem Amputated left leg ESRD on hemodialysis Father Diabetes Hypertension Liver problem Sister Diabetes Sister Diabetes Sister Diabetes Hypertension Social History Household Members: Spouse Housing: Apartment Are you a primary care management specialist to a significant other at home: No Do you presently have visiting nurse or other home services: No Alcohol intake: current Alcohol intake frequency: holidays/special occasions only Alcohol type: other Patient Tobacco Use Status: Never used Tobacco e-Cigarette/Vaping Use: Never Used Second Hand Smoke Exposure: No service: No Current occupational status: employed 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 Current occupational exposures/hazards: No Sexual orientation: Straight/Heterosexual Gender identity: Female Cognitive needs: No Hearing needs: No Vision needs: No Female Reproductive History Menstrual Age of Menarche: 11 Physical Exam Vital Signs: Last Vital Signs Temp 97.6 F 02/17/24 13:30 Pulse 65 02/17/24 13:30 BP 101/58 L 02/17/24 13:30 Pulse Ox 96 02/17/24 13:30 Oxygen Delivery Method Room Air 02/17/24 13:30 BMI result Body Mass Index 36.3 Const General: healthy appearing and no acute distress Resp Effort & Inspection: normal respiratory effort Auscultation: clear to auscultation bilaterally Cardio Rate: regular rate Rhythm: regular rhythm GI Auscultation: normal bowel sounds Extrem General: Yes normal to inspection Assessment & Plan Assessment & Plan (1) S/P laparoscopic sleeve gastrectomy: Comment: 11/19/2021 Code(s): Z98.84 - Bariatric surgery status Category: Medical Plan: Patient walks outside sometimes, does not exercise formally. Does not seem interested in exercising formally. I discussed the importance of exercise as it relates directly to weight loss. She did have multiple indiscretions with her birthday that was recently. She is now back on track with her meal plan. She does not want to join a gym. We will suggest decreasing her 2nd shake to half, adding 6 oz of unsweetened almond milk. Encouraged to text weekly. Return to t he office in 4-6 weeks.
[2024-02-17 13:30] VITALS: BP 101/58; PULSE 65; TEMP 36.4; O2SAT 96; BMI 36.3
== END 2024-02-17 13:48 | disposition home or self-care (01) ==
PROVIDERS: PCP Internal Medicine; Visit Provider Physician Assistant Surgical
DX: E66.9 Obesity, unspecified (principal); Z68.36 Body mass index [BMI] 36.0-36.9, adult; Z90.3 Acquired absence of stomach [part of]; Z98.84 Bariatric surgery status
CPT/HCPCS: 99213

== ENCOUNTER → 2024-02-17 13:14 | Outpatient (BNVA) | payer OTHER, SELFPAY | PROVIDERS: PCP Internal Medicine; Visit Provider Physician Assistant Surgical | DX: E66.01 Morbid (severe) obesity due to excess calories (principal); Z71.3 Dietary counseling and surveillance; Z98.84 Bariatric surgery status; Z68.36 Body mass index [BMI] 36.0-36.9, adult | CPT/HCPCS: 99212 ==

== ENCOUNTER 2024-03-07 08:44 | Outpatient (AMB) | payer OTHER, SELFPAY ==
[2024-03-07 08:47] VITALS: BP 92/38; PULSE 66; O2SAT 96; BMI 37.2
--- NOTE | 2024-03-07 08:47 | A.OFFVIS_ITS ---
Vital Signs 03/07/24 08:47 Height 5 ft 5 in Weight 223 lb 12.307 oz BMI 37.2 BP 92/38 L Blood Pressure Location Rt brachial Position Sitting Pulse 66 Pulse Source Pulse Oximeter Pulse Oximetry (%) 96 Oxygen Delivery Method Room Air Intake Visit Reasons: 6 month follow up Intake Note: Thee presents in office today for a scheduled 6 mos FUV. CC; Pt reports that they have been doing slightly worse since their last visit. Pt has been having moderate to severe reflux with increased frequency. Pt reports that they have still been taking their medication as intended, however; they have not been noticing a therapeutic response to the medication any longer. Weld Lay Out Worker Required: Yes Weld Lay Out Worker Services: Weld Lay Out Worker Offered & Declined Information Interpreted: non-clinical & clinical Allergies aspirin Allergy (Verified 03/07/24 08:47) Swelling HPI HPI 6 month follow up: Details: LAST VISIT Right upper quadrant abdominal pain Steatosis, liver GERD (gastroesophageal reflux disease) Constipation Postprandial abdominal bloating Plan Continue Linzess. Patient can take stool softener on as needed basis. Patient was encouraged to avoid dietary triggers and late night snacking staying upright for minimum 3 hours after meals discussed with patient. Patient can continue follow-up appointment with bariatrics. Patient no longer reports abdominal pain and discomfort. Continue low FODMAP diet as discussed last visit. Patient will follow-up in 6 months, sooner on as needed basis. Patient is agreeable to this plan and verbalizes understanding of instructions. She was given the opportunity to ask questions and all questions answered. ? Thank you for allowing me to participate in her care TODAY'S VISIT: Patient is here today for follow-up. Patient reports that she is able to move her bowels better now that she is taking Linzess. Patient continues to have epigastric discomfort postprandially. Severe acid reflux during the day and at night time. Currently taking Pepcid omeprazole not filled by pharmacy, however patient reports that it was not working. Patient tried as omeprazole in the past and pantoprazole without effect. Patient reports occasional dyspepsia without dysphagia or odynophagia. Patient follows with bariatric surgery. Patient reports that she follows the recommendations made by bariatric office. Patient denies melena, hematochezia, unintentional weight loss or ribbon like stools. Patient denies any other GI concerning symptoms. [facility] Medical History Morbid obesity ASCUS of cervix with negative high risk HPV Abnormal uterine bleeding (AUB) Obese Prediabetes GERD (gastroesophageal reflux disease) EIN (endometrial intraepithelial neoplasia) Unsatisfactory cervical Papanicolaou smear Vitamin D deficiency Endocervical polyp Vaginitis Abnormal uterine bleeding (AUB) Pre-op evaluation Surgical History S/P laparoscopic sleeve gastrectomy History of hysteroscopy Family History Mother Diabetes Hypertension Seizures Liver problem Amputated left leg ESRD on hemodialysis Father Diabetes Hypertension Liver problem Sister Diabetes Sister Diabetes Sister Diabetes Hypertension Social History Household Members: Spouse Housing: Apartment Are you a primary manager care to a significant other at home: No Do you presently have visiting nurse or other home services: No Alcohol intake: current Alcohol intake frequency: holidays/special occasions only Alcohol type: other Patient Tobacco Use Status: Never used Tobacco e-Cigarette/Vaping Use: Never Used Second Hand Smoke Exposure: No service: No Current occupational status: employed 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 Current occupational exposures/hazards: No Sexual orientation: Straight/Heterosexual Gender identity: Female Cognitive needs: No Hearing needs: No Vision needs: No Female Reproductive History Menstrual Age of Menarche: 11 Review of Systems Const Denies weight gain and Denies weight loss ENT Reports no additional complaints, Denies dysphagia and Denies odynophagia Card Reports no additional complaints Resp Reports no additional complaints GI Reports abdominal pain (Epigastric), Denies belching, Denies melena, Reports bloating, Denies change in bowel habits, Denies dysphagia, Denies excessive flatus, Denies dyspepsia, Reports heartburn, Denies diarrhea, Denies loose stools, Denies nausea, Denies odynophagia and Denies vomiting Musc Reports no additional complaints Neuro Reports no additional complaints Psych Reports no additional complaints Endo Reports no additional complaints Physical Exam Vital Signs: Last Vital Signs Pulse 66 03/07/24 08:47 BP 92/38 L 03/07/24 08:47 Pulse Ox 96 03/07/24 08:47 Oxygen Delivery Method Room Air 03/07/24 08:47 BMI result Body Mass Index 37.2 Const General: healthy appearing, no acute distress and well developed Nutritional Appearance: obese Orientation/consciousness: patient oriented x3 Resp Effort & Inspection: normal respiratory effort, able to speak in complete sentences, no tracheal deviation and symmetric chest movement Auscultation: clear to auscultation bilaterally Cardio Rate: regular rate GI Inspection: Yes normal to inspection, No distended and Yes obesity Palpation (GI): Soft to palpation, not firm, nontender and No hepatosplenomegaly present Auscultation: normal bowel sounds General: Yes no CVA tenderness Back/Spine/Pelvis Back: no CVA tenderness Skin General skin exam: elasticity normal, turgor normal and dry skin Neuro General: patient oriented x3 Psych Appearance: grossly normal Mental Status: mental status grossly normal Assessment & Plan Assessment & Plan (1) Right upper quadrant abdominal pain: Code(s): R10.11 - Right upper quadrant pain Category: Medical (2) Steatosis, liver: Code(s): K76.0 - Fatty (change of) liver, not elsewhere classified Category: Medical (3) GERD (gastroesophageal reflux disease): Code(s): K21.9 - Gastro-esophageal reflux disease without esophagitis Category: Medical Qualifiers: Esophagitis presence: esophagitis presence not specified Qualified Code(s): K21.9 - Gastro-esophageal reflux disease without esophagitis (4) Constipation: Code(s): K59.00 - Constipation, unspecified Qualifiers: Constipation type: slow transit constipation Qualified Code(s): K59.01 - Slow transit constipation (5) Postprandial abdominal bloating: Code(s): R14.0 - Abdominal distension (gaseous) Plan Will change treatment to lansoprazole in the morning and famotidine at bedtime. Patient was encouraged to avoid dietary triggers and late night snacking. Small meals and more often. Continue taking Linzess. Increase fluid intake and activity to promote better bowel motility. Patient will be sent for upper endoscopy and I will see her after the procedure. Patient is agreeable to this plan and verbalizes understanding of instructions. She was given the opportunity to ask questions and all questions answered. Thank you for allowing me to participate in her care Medications: New lansoprazole 30 mg PO DAILY 30 caps 3RF K21.9 - Gastro-esophageal reflux disease without esophagitis famotidine (Pepcid) 20 mg PO BEDTIME 30 tabs 3RF K21.9 - Gastro-esophageal reflux disease without esophagitis Coding Level of Care Code Est Pt Level 4 (42688) Diagnoses Right upper quadrant abdominal pain R10.11 Steatosis, liver K76.0 Gastroesophageal reflux disease, unspecified whether esophagitis present K21.9 Esophagitis presence: esophagitis presence not specified Slow transit constipation K59.01 Constipation type: slow transit constipation Postprandial abdominal bloating R14.0 Time Spent (min) 35 Comment 20 minutes spent with patient and additional 15 minutes spent reviewing her records
== END 2024-03-07 10:16 | disposition home or self-care (01) ==
PROVIDERS: PCP Internal Medicine; Visit Provider Nurse Practitioner Family
DX: R10.11 Right upper quadrant pain (principal); K76.0 Fatty (change of) liver, not elsewhere classified; K21.9 Gastro-esophageal reflux disease without esophagitis; K59.01 Slow transit constipation; R14.0 Abdominal distension (gaseous)
CPT/HCPCS: 99214

== ENCOUNTER → 2024-03-07 08:44 | Outpatient (BNVA) | payer OTHER, SELFPAY | PROVIDERS: PCP Internal Medicine; Visit Provider Nurse Practitioner Family | DX: R10.11 Right upper quadrant pain (principal); K76.0 Fatty (change of) liver, not elsewhere classified; K21.9 Gastro-esophageal reflux disease without esophagitis; K59.01 Slow transit constipation; R14.0 Abdominal distension (gaseous) | CPT/HCPCS: 99212 ==

== ENCOUNTER 2024-03-17 07:24 | Day surgery (SDC) | payer OTHER, SELFPAY ==
--- NOTE | 2024-03-15 14:52 | P.CONAN_ITS ---
Documented by User: Philomena Baxter NP 03/15/24 14:52 HPI - Anesthesia Eval Consult details Narrative: 34yo F for Upper Endoscopy PMFSH Active Problems Active Problems: All Active Problems Painful arc syndrome of left shoulder (Acute) Physical exam (Acute) Right hand pain (Acute) Left hand pain (Acute) Left shoulder pain (Acute) Right knee pain (Acute) Class 2 obesity with body mass index (BMI) of 37.0 to 37.9 in adult (Acute) Chronic idiopathic constipation (Acute) Obese (Acute) Vitamin A deficiency (Acute) Right upper quadrant abdominal pain (Acute) S/P laparoscopic sleeve gastrectomy (Acute) EIN (endometrial intraepithelial neoplasia) (Acute) Well woman exam (Acute) Diaphragmatic hernia (Acute) Liver fibrosis (Acute) Steatosis, liver (Acute) Hirsutism (Acute) Prediabetes (Acute) GERD (gastroesophageal reflux disease) (Acute) Past Medical History Medical History Morbid obesity ASCUS of cervix with negative high risk HPV Abnormal uterine bleeding (AUB) Obese Prediabetes GERD (gastroesophageal reflux disease) EIN (endometrial intraepithelial neoplasia) Unsatisfactory cervical Papanicolaou smear Vitamin D deficiency Endocervical polyp Vaginitis Abnormal uterine bleeding (AUB) Pre-op evaluation Family History Family History Mother Diabetes Hypertension Seizures Liver problem Amputated left leg ESRD on hemodialysis Father Diabetes Hypertension Liver problem Sister Diabetes Sister Diabetes Sister Diabetes Hypertension Family history of problems with anesthesia: No Surgical History Surgical History S/P laparoscopic sleeve gastrectomy History of hysteroscopy History of Problems with Anesthesia: No Social History Social History Household Members: Spouse Housing: Apartment Are you a primary primary care provider to a significant other at home: No Do you presently have visiting nurse or other home services: No Alcohol intake: current Alcohol intake frequency: holidays/special occasions only Alcohol type: other Patient Tobacco Use Status: Never used Tobacco e-Cigarette/Vaping Use: Never Used Second Hand Smoke Exposure: No Use of substances other than those prescribed or required for medical reasons: Yes Have you been hit, kicked, punched, or otherwise hurt by someone within the past year? 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 Current occupational exposures/hazards: No Sexual orientation: Straight/Heterosexual Gender identity: Female Cognitive needs: No Hearing needs: No Vision needs: No Meds Allergies Allergy/AdvReac Type Severity Reaction Status Date / Time aspirin Allergy Swelling Verified 03/07/24 08:47 Home Medications ?Medication ?Instructions ?Recorded ?Confirmed ?Last Taken ?Type levonorgestrel 21 mcg/24 hr (up to intrauterine 05/05/22 12/30/23 Unknown History 8 years) 52 mg intrauterine device (Mirena) multivitamin 1 tab PO DAILY 06/02/23 12/30/23 Unknown History docusate sodium 100 mg capsule 100 mg PO DAILY 09/01/23 12/30/23 Unknown History Assessment and Plan Assessment Anesthesia Assessment: Chart Reviewed Final Anesthetic Review Family History of Problems with Anesthesia: No History of Problems with Anesthesia: No Documented by User: Stephanie Man MD 03/17/24 09:29 [facility] Past Medical History Medical History Morbid obesity ASCUS of cervix with negative high risk HPV Abnormal uterine bleeding (AUB) Obese Prediabetes GERD (gastroesophageal reflux disease) EIN (endometrial intraepithelial neoplasia) Unsatisfactory cervical Papanicolaou smear Vitamin D deficiency Endocervical polyp Vaginitis Abnormal uterine bleeding (AUB) Pre-op evaluation Family History Family History Mother Diabetes Hypertension Seizures Liver problem Amputated left leg ESRD on hemodialysis Father Diabetes Hypertension Liver problem Sister Diabetes Sister Diabetes Sister Diabetes Hypertension Surgical History Surgical History S/P laparoscopic sleeve gastrectomy History of hysteroscopy Social History Social History Household Members: Spouse Housing: Apartment Are you a primary primary care provider to a significant other at home: No Do you presently have visiting nurse or other home services: No Alcohol intake: current Alcohol intake frequency: holidays/special occasions only Alcohol type: other Patient Tobacco Use Status: Never used Tobacco e-Cigarette/Vaping Use: Never Used Second Hand Smoke Exposure: No Use of substances other than those prescribed or required for medical reasons: Yes Have you been hit, kicked, punched, or otherwise hurt by someone within the past year? 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 Current occupational exposures/hazards: No Sexual orientation: Straight/Heterosexual Gender identity: Female Cognitive needs: No Hearing needs: No Vision needs: No Meds Allergies Allergy/AdvReac Type Severity Reaction Status Date / Time aspirin Allergy Swelling Verified 03/07/24 08:47 Home Medications ?Medication ?Instructions ?Recorded ?Confirmed ?Last Taken ?Type levonorgestrel 21 mcg/24 hr (up to intrauterine 05/05/22 12/30/23 Unknown History 8 years) 52 mg intrauterine device (Mirena) multivitamin 1 tab PO DAILY 06/02/23 12/30/23 Unknown History docusate sodium 100 mg capsule 100 mg PO DAILY 09/01/23 12/30/23 Unknown History Exam Airway Mallampati Class: II TM Dist: >3cm Neck ROM: Full Loose/Missing/Broken Teeth: No Heart: RRR Lungs: CTA Assessment and Plan Assessment Anesthesia Assessment: Anesthesia Plan Discussed Final Anesthetic Review NPO: Yes ASA Class: II Final Preanesthetic Review: Meds/Allgs Chart Reviewed, Consent Obtained/Reviewed and Anes Risks/Benef Reviewed Patient Risk: Low Procedure Risk: Intermediate Anesthetic Plan Anesthetic Plan: MAC: Disposition: Standard PACU
[2024-03-17 08:10] VITALS: BP 107/55; PULSE 66; RESP 16; TEMP 36.7; O2SAT 96; BMI 37.4
[2024-03-17] MEDS: Lactated Ringers 1,000 ML 100 ML IVCONT (08:21)
[2024-03-17 08:22] LABS: UPreg QC Valid YES; Urine Pregnancy NEGATIVE (NEGATIVE)
--- NOTE | 2024-03-17 08:28 | MHC.SHP ---
Pre-Procedural Eval Section A - 24 Hr Update-Section A only Date of Service: 03/17/24 Section B - Complete if H&P > 30 days Chief Complaint: Abdominal distension (gaseous) Relevant Family History (Specify if Yes): No Relevant Social History: None Present Medications: see Short Stay Collaborative assessment Medical History: Significant History (Morbid obesity ASCUS of cervix with negative high risk HPV Abnormal uterine bleeding (AUB) Obese Prediabetes GERD (gastroesophageal reflux disease) EIN (endometrial intraepithelial neoplasia) Unsatisfactory cervical Papanicolaou smear Vitamin D deficiency Endocervical polyp Vaginitis Abnormal uterin) History of Previous Operations: Relevant previous surgery/procedure and date(s) (S/P laparoscopic sleeve gastrectomy History of hysteroscopy) Allergies: Allergies Allergy/AdvReac Type Severity Reaction Status Date / Time aspirin Allergy Swelling Verified 03/07/24 08:47 Review of Systems Sugical H&P ROS: Negative: Constitution, Cardiovascular, Respiratory, Neurological, Psychiatric, Hem-Onc, Allergic/Immunologic, Gastrointestinal, Genitourinary, Musculoskeletal, Integumentary, Endocrine and Eyes/Ears/Nose/Throat Exam Surgical H&P Exam: Normal: HEENT, Normal: Heart, Normal: Lungs, Normal: Extremities, Normal: Abdomen, Normal: Skin and Normal: Neurological Plan Diagnosis/Plan: Unchanged I have reviewed the history and physical and performed a pertinent physical examination on my patient. No changes have occurred unless specified. Time Spent With Patient Time: Total time managing care of this patient today ____ minutes.
[2024-03-17] MEDS: Albuterol Sulfate (0.083%) 2.5 MG/3 ML VIAL.NEB INHALE (08:41)
[2024-03-17 08:42] VITALS: PULSE 62; RESP 16; O2SAT 96
--- NOTE | 2024-03-17 09:36 | W.PM.OPN ---
Operative Note Operative Note Date of Service: 03/17/24 Narrative: Procedure Description: EGD Indication: GERD Anesthesia: MAC FLEXIBLE TRANSORAL UPPER GASTROINTESTINAL ENDOSCOPY UPPER ENDOSCOPY Consent: Indications for the procedure and potential complications of bleeding, perforation, reaction to medications and missed diagnosis were discussed with the patient and informed consent was obtained. Instrument: Olympus GIF H 190 J mid size upper endoscope Monitoring: Vital signs and clinical assessment, continuous EKG monitoring, Pulse oximetry, Carbon Dioxide monitoring and blood pressure monitoring were done throughout the procedure. Procedure: The patient was placed in the left lateral decubitis position and pre-procedure medications were administered and a bite block was placed. The endoscope was inserted into the mouth and advanced under direct vision to the third part of duodenum. A careful inspection was made as the upper endoscope was withdrawn including a retroflexed examination of the proximal stomach; Findings and interventions are described below. Findings: Larynx:normal Esophagus: GE junction at 33 cm, diaphragm hiatus at 35 cm, 2 cm sliding hiatal hernia with widely patulous GEJ and esophagitis at GEJ with erythema and congestion, bx taken from GEJ, distal and proximal esophagus Stomach: mild erythema . Biopsies were obtained. Grade 3 flap valve on retroflexed examination of the cardia. Cardia slightly nodular appearance, bx taken Duodenum: Normal bulb and descending duodenum, Intervention: Biopsies as noted above, Impression/Findings: gastritis esophagitis patulous GEJ hiatal hernia PLAN: change PPI or increase dose if ongoing sx GERD precautions consider surgical referral for hernia repair and possible fundoplication.
[2024-03-17 09:45] VITALS: BP 108/73; PULSE 105; RESP 16; TEMP 36.9; O2SAT 94
[2024-03-17 10:00] VITALS: BP 100/61; PULSE 78; RESP 18; TEMP 36.8; O2SAT 97
== END 2024-03-17 10:20 | disposition home or self-care (01) ==
PROVIDERS: Nurse Practitioner; PCP Internal Medicine; Visit Provider Internal Medicine Gastroenterology
PROC: 0DJ08ZZ Inspection of Upper Intestinal Tract, Via Natural or Artificial Opening Endoscopic (ICD-10-PCS; CPT 43235; principal; 2024-03-17 09:10)
DX: K21.9 Gastro-esophageal reflux disease without esophagitis (principal); R10.11 Right upper quadrant pain; K29.60 Other gastritis without bleeding; R14.0 Abdominal distension (gaseous); K20.80 Other esophagitis without bleeding; K22.89 Other specified disease of esophagus; K44.9 Diaphragmatic hernia without obstruction or gangrene; K76.0 Fatty (change of) liver, not elsewhere classified; K59.01 Slow transit constipation; R73.03 Prediabetes; N93.9 Abnormal uterine and vaginal bleeding, unspecified; N85.02 Endometrial intraepithelial neoplasia [EIN]; E66.01 Morbid (severe) obesity due to excess calories; Z68.37 Body mass index [BMI] 37.0-37.9, adult; Z98.84 Bariatric surgery status; Z79.899 Other long term (current) drug therapy; Z88.6 Allergy status to analgesic agent
CPT/HCPCS: 43239; 81025; 88305; 88313; 88342; 94640; J1100; J1596; J2003; J2704

== ENCOUNTER → 2024-03-17 07:24 | Outpatient (BNV) | payer OTHER, SELFPAY | PROVIDERS: PCP Internal Medicine; Visit Provider Internal Medicine Gastroenterology | DX: K21.00 Gastro-esophageal reflux disease with esophagitis, without bleeding (principal); K29.70 Gastritis, unspecified, without bleeding | CPT/HCPCS: 43239 ==

== ENCOUNTER 2024-03-25 07:51 | Outpatient (AMB) | payer OTHER, SELFPAY ==
--- NOTE | 2024-03-25 07:52 | MHC.OFFVISWM ---
VS Expanded 03/25/24 07:58 BP 101/51 L Blood Pressure Location Rt brachial Blood Pressure Position Sitting Pulse 71 Pulse Source Pulse Oximeter Temp 97.4 F Temperature Source Temporal Artery Scan Pulse Oximetry 96 Oxygen Delivery Method Room Air Height 5 ft 5 in Weight 216 lb 6.4 oz BMI 36.0 Body Fat % 44.4 Body Fat Mass 96.2 Fat Free Mass 120.2 Visceral Fat Rating 10.0 Body Water % 39.9 Body Water Mass 86.2 Muscle Mass/Score 114.0 Basal Metabolic Rate/Score 1,705 Intake Visit Reasons: OV Hiatal Hernia - Dr. Jeffrey Ref. Allergies aspirin Allergy (Verified 03/25/24 08:39) Swelling Medication List - Last Reconciled 03/25/24 by John Garcia MD lansoprazole 30 mg PO DAILY levonorgestrel (Mirena) intrauterine linaclotide (Linzess) 145 mcg PO DAILY multivitamin 1 tab PO DAILY HPI Comments Details: Overall weight loss: 160.6lbs, or 42.6% TBWL Was referred back to me by Dr. Jeffrey for severe GERD and a biopsy-proven esophagitis Is doing one Equate premade 30gr protein shake, meal (3-4oz of meat and 3-4oz salad), half Atkins protein bar and one egg Exercise: none PFSH Medical History Morbid obesity ASCUS of cervix with negative high risk HPV Abnormal uterine bleeding (AUB) Obese Prediabetes GERD (gastroesophageal reflux disease) EIN (endometrial intraepithelial neoplasia) Unsatisfactory cervical Papanicolaou smear Vitamin D deficiency Endocervical polyp Vaginitis Abnormal uterine bleeding (AUB) Pre-op evaluation Surgical History S/P laparoscopic sleeve gastrectomy History of hysteroscopy Family History Mother Diabetes Hypertension Seizures Liver problem Amputated left leg ESRD on hemodialysis Father Diabetes Hypertension Liver problem Sister Diabetes Sister Diabetes Sister Diabetes Hypertension Social History Household Members: Spouse Housing: Apartment Are you a primary insurance healthcare representative to a significant other at home: No Do you presently have visiting nurse or other home services: No Alcohol intake: current Alcohol intake frequency: holidays/special occasions only Alcohol type: other Patient Tobacco Use Status: Never used Tobacco e-Cigarette/Vaping Use: Never Used Second Hand Smoke Exposure: No service: No Current occupational status: employed 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 Current occupational exposures/hazards: No Sexual orientation: Straight/Heterosexual Gender identity: Female Cognitive needs: No Hearing needs: No Vision needs: No Female Reproductive History Menstrual Age of Menarche: 11 Physical Exam Vital Signs: Last Vital Signs Temp 97.4 F 03/25/24 07:58 Pulse 71 03/25/24 07:58 BP 101/51 L 03/25/24 07:58 Pulse Ox 96 03/25/24 07:58 Oxygen Delivery Method Room Air 03/25/24 07:58 BMI result Body Mass Index 36.0 GI Inspection: Yes normal to inspection, Yes incision (well healed), Yes obesity and Yes other (large abdominal pannus) Assessment & Plan Assessment & Plan (1) GERD (gastroesophageal reflux disease): Code(s): K21.9 - Gastro-esophageal reflux disease without esophagitis Category: Medical Qualifiers: Esophagitis presence: esophagitis presence not specified Qualified Code(s): K21.9 - Gastro-esophageal reflux disease without esophagitis Plan: 1. We discussed the etiology of the GERD. Her small hiatal hernia has not increased in size. The main cause of her GERD is the diet plan how it is structured as well as the fact that despite her great weight loss, she remains severely obese and needs to lose at least another 65lbs. 2. We agreed on the following plan: Equate premade shake (4oz of Equate mixed with 4oz low fat unsweetened almond milk, coconut milk or oat milk) at 8-10am and 11am-1pm, lunch at 2pm (4 forks of meat and 4 forks of salad or rice), another Equate shake (4oz of Equate mixed with 4oz low fat unsweetened almond milk, coconut milk or oat milk) at 4pm-6pm, Atkins bar at 7pm-9pm and another HALF Atkins bar at 10pm-11pm. 3. As of tomorrow please send a picture of your meal plate daily after you measure it but before you eat it 4. Buy a used stationary bike and start using it daily for at least 15 minutes 5. Send me weight measurements tomorrow and weekly on Saturdays Medications: New sucralfate 10 mL PO BID 600 mL 2RF K20.90 - Esophagitis, unspecified without bleeding
[2024-03-25 07:58] VITALS: BP 101/51; PULSE 71; TEMP 36.3; O2SAT 96; BMI 36.0
== END 2024-03-25 08:57 | disposition home or self-care (01) ==
PROVIDERS: PCP Internal Medicine; Visit Provider Surgery
DX: K21.00 Gastro-esophageal reflux disease with esophagitis, without bleeding (principal)
CPT/HCPCS: 99214

== ENCOUNTER → 2024-03-25 07:51 | Outpatient (BNVA) | payer OTHER, SELFPAY | PROVIDERS: PCP Internal Medicine; Visit Provider Surgery | DX: K21.00 Gastro-esophageal reflux disease with esophagitis, without bleeding (principal) | CPT/HCPCS: 99212 ==

== ENCOUNTER 2024-04-20 14:02 | Outpatient (REF) | payer OTHER, SELFPAY ==
[2024-04-21 09:32] LABS: H Pylori Breath Test Negative (Negative)
== END 2024-04-20 14:03 | disposition home or self-care (01) ==
LOC: HO.LNP 14:02
PROVIDERS: PCP Internal Medicine; Visit Provider Nurse Practitioner Family
DX: K21.9 Gastro-esophageal reflux disease without esophagitis (principal); R10.11 Right upper quadrant pain; K76.0 Fatty (change of) liver, not elsewhere classified; K59.01 Slow transit constipation; Z11.2 Encounter for screening for other bacterial diseases
CPT/HCPCS: 83013; 99212

== ENCOUNTER 2024-04-20 14:02 | Outpatient (AMB) | payer OTHER, SELFPAY ==
[2024-04-20 14:20] VITALS: BP 110/56; PULSE 78; O2SAT 97; BMI 36.6
--- NOTE | 2024-04-20 14:20 | MHC.OFFVIS ---
Vital Signs 04/20/24 14:20 Height 5 ft 5 in Weight 220 lb 0.341 oz BMI 36.6 BP 110/56 L Blood Pressure Location Rt brachial Position Sitting Pulse 78 Pulse Source Pulse Oximeter Pulse Oximetry (%) 97 Oxygen Delivery Method Room Air Intake Visit Reasons: s/p EGD/ H pylori breath test Intake Note: Relevant Flags or Indicators ? Requires Licensed Practical Nurse? Y Yesmallika presents in office today for a scheduled s/p FUV. CC; No recent labs, diagnostics, or med orders placed. Pt states that Dr. Downey reports no change in the hiatal hernia size from their original surgery. Relevant GI Sx as reported per pt? Reflux ? Hx of any recent surgeries? EGD w/ Dr. Jeffrey. Discussing hiatal repair w/ weight management. Licensed Practical Nurse Required: No Allergies aspirin Allergy (Verified 04/20/24 14:22) Swelling HPI HPI s/p EGD/ H pylori breath test: Details: LAST VISIT: Right upper quadrant abdominal pain Steatosis, liver GERD (gastroesophageal reflux disease) Constipation Postprandial abdominal bloating Plan Will change treatment to lansoprazole in the morning and famotidine at bedtime. Patient was encouraged to avoid dietary triggers and late night snacking. Small meals and more often. Continue taking Linzess. Increase fluid intake and activity to promote better bowel motility. Patient will be sent for upper endoscopy and I will see her after the procedure. Patient is agreeable to this plan and verbalizes understanding of instructions. She was given the opportunity to ask questions and all questions answered. ? Thank you for allowing me to participate in her care Medications New lansoprazole 30 mg PO DAILY 30 caps 3RF K21.9 famotidine (Pepcid) 20 mg PO BEDTIME 30 tabs 3RF K21.9 ENDOSCOPY: Findings: Larynx:normal Esophagus: GE junction at 33 cm, diaphragm hiatus at 35 cm, 2 cm sliding hiatal hernia with widely patulous GEJ and esophagitis at GEJ with erythema and congestion, bx taken from GEJ, distal and proximal esophagus Stomach: mild erythema . Biopsies were obtained. Grade 3 flap valve on retroflexed examination of the cardia. Cardia slightly nodular appearance, bx taken Duodenum: Normal bulb and descending duodenum, Intervention: Biopsies as noted above, Impression/Findings: gastritis esophagitis patulous GEJ hiatal hernia PLAN: change PPI or increase dose if ongoing sx GERD precautions consider surgical referral for hernia repair and possible fundoplication. PATHOLOGY: Diagnosis A. Stomach, biopsy: Antral-type mucosa with moderate chronic inactive inflammation; no Helicobacter organisms seen. B. GE junction, biopsy: - Cardiac-type mucosa with moderate chronic inactive inflammation; no intestinal metaplasia seen. - Active esophagitis (maximum eosinophil count 2 per high powered field). C. Esophagus, distal, biopsy: Active esophagitis (maximum eosinophil count 48 per high powered field). D. Esophagus, proximal, biopsy: Squamous epithelium within normal limits; no inflammation seen. E. Stomach, cardia, biopsy: Oxyntic mucosa with mild chronic inactive inflammation; no Helicobacter organisms seen. TODAY'S VISIT Patient is here today for follow-up and to discuss upper endoscopy results. Patient was found to have active esophagitis with high eosinophilic count. Patient does not remember of any environmental allergies. Hiatal hernia that has been followed up with Dr. Garcia. Patient will also need a H pylori testing done in the office. Of PPIs for over 2 weeks. Patient denies any ill effects from anesthesia or procedure itself. Patient reports that she is feeling fairly well except for occasional acid reflux. Patient is moving her bowels without any issues at this point. Patient is no longer taking Linzess. Denies melena, hematochezia, unintentional weight loss or ribbon like stools. [facility] Medical History Morbid obesity ASCUS of cervix with negative high risk HPV Abnormal uterine bleeding (AUB) Obese Prediabetes GERD (gastroesophageal reflux disease) EIN (endometrial intraepithelial neoplasia) Unsatisfactory cervical Papanicolaou smear Vitamin D deficiency Endocervical polyp Vaginitis Abnormal uterine bleeding (AUB) Pre-op evaluation Surgical History S/P laparoscopic sleeve gastrectomy History of hysteroscopy Family History Mother Diabetes Hypertension Seizures Liver problem Amputated left leg ESRD on hemodialysis Father Diabetes Hypertension Liver problem Sister Diabetes Sister Diabetes Sister Diabetes Hypertension Social History Household Members: Spouse Housing: Apartment Are you a primary career advisor to a significant other at home: No Do you presently have visiting nurse or other home services: No Alcohol intake: current Alcohol intake frequency: holidays/special occasions only Alcohol type: other Patient Tobacco Use Status: Never used Tobacco e-Cigarette/Vaping Use: Never Used Second Hand Smoke Exposure: No service: No Current occupational status: employed 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 Current occupational exposures/hazards: No Sexual orientation: Straight/Heterosexual Gender identity: Female Cognitive needs: No Hearing needs: No Vision needs: No Female Reproductive History Menstrual Age of Menarche: 11 Review of Systems Const Denies weight gain and Denies weight loss ENT Reports no additional complaints, Denies dysphagia and Denies odynophagia Card Reports no additional complaints Resp Reports no additional complaints GI Denies abdominal pain, Denies belching, Denies melena, Denies bloating, Denies change in bowel habits, Denies dysphagia, Denies excessive flatus, Denies dyspepsia, Reports heartburn, Denies diarrhea, Denies loose stools, Denies nausea, Denies odynophagia and Denies vomiting Reports no additional complaints Musc Reports no additional complaints Neuro Reports no additional complaints Psych Reports no additional complaints Endo Reports no additional complaints Physical Exam Vital Signs: Last Vital Signs Pulse 78 04/20/24 14:20 BP 110/56 L 04/20/24 14:20 Pulse Ox 97 04/20/24 14:20 Oxygen Delivery Method Room Air 04/20/24 14:20 BMI result Body Mass Index 36.6 Const General: healthy appearing, no acute distress and well developed Nutritional Appearance: obese Orientation/consciousness: patient oriented x3 Resp Effort & Inspection: normal respiratory effort, able to speak in complete sentences, no tracheal deviation and symmetric chest movement Auscultation: clear to auscultation bilaterally Cardio Rate: regular rate GI Inspection: Yes normal to inspection, No distended and Yes obesity Palpation (GI): Soft to palpation, not firm, nontender and No hepatosplenomegaly present Auscultation: normal bowel sounds General: Yes no CVA tenderness Back/Spine/Pelvis Back: no CVA tenderness Skin General skin exam: elasticity normal, turgor normal and dry skin Neuro General: patient oriented x3 Psych Appearance: grossly normal Mental Status: mental status grossly normal Assessment & Plan Assessment & Plan (1) Right upper quadrant abdominal pain: Code(s): R10.11 - Right upper quadrant pain Category: Medical (2) Steatosis, liver: Code(s): K76.0 - Fatty (change of) liver, not elsewhere classified Category: Medical (3) GERD (gastroesophageal reflux disease): Code(s): K21.9 - Gastro-esophageal reflux disease without esophagitis Category: Medical Qualifiers: Esophagitis presence: esophagitis presence not specified Qualified Code(s): K21.9 - Gastro-esophageal reflux disease without esophagitis (4) Constipation: Code(s): K59.00 - Constipation, unspecified Qualifiers: Constipation type: slow transit constipation Qualified Code(s): K59.01 - Slow transit constipation (5) Postprandial abdominal bloating: Code(s): R14.0 - Abdominal distension (gaseous) Plan H pylori in the office today, will treat empirically if positive. Allergy and immunology referral high eosinophilic count found in esophagus. Continue lansoprazole. Patient will avoid dietary triggers and late night snacking. Staying upright for minimum 3 hours after meals discussed with patient. Patient will follow-up in the office in 6 months, sooner on as needed basis. She is agreeable to this plan and verbalizes understanding of instructions. She was given the opportunity to ask questions and all questions answered. Thank you for allowing me to participate in her care Orders: Orders H Pylori Breath Test 04/20/24 K21.9 - Gastro-esophageal reflux disease without esophagitis Referrals Allergy & Immunology Referral K20.0 - Eosinophilic esophagitis Medications: Discontinued linaclotide Discontinued Reason: Patient no longer taking 145 mcg PO DAILY 30 caps 2RF Coding Level of Care Code Est Pt Level 4 (12649) Complex EM visit Add On G2211 Diagnoses Right upper quadrant abdominal pain R10.11 Steatosis, liver K76.0 Gastroesophageal reflux disease, unspecified whether esophagitis present K21.9 Esophagitis presence: esophagitis presence not specified Slow transit constipation K59.01 Constipation type: slow transit constipation Postprandial abdominal bloating R14.0 Time Spent (min) 35 Comment 20 minutes spent with patient and additional 15 minutes spent reviewing her records
== END 2024-04-20 15:15 | disposition home or self-care (01) ==
PROVIDERS: PCP Internal Medicine; Visit Provider Nurse Practitioner Family
DX: R10.11 Right upper quadrant pain (principal); K76.0 Fatty (change of) liver, not elsewhere classified; K21.9 Gastro-esophageal reflux disease without esophagitis; K59.01 Slow transit constipation; R14.0 Abdominal distension (gaseous)
CPT/HCPCS: 99214; G2211

== ENCOUNTER 2024-06-07 08:21 | Outpatient (AMB) | payer OTHER, SELFPAY ==
--- NOTE | 2024-06-07 08:32 | A.OFFVIS_ITS ---
VS Expanded 06/07/24 08:40 BP 108/59 L Blood Pressure Location Rt brachial Blood Pressure Position Sitting Pulse 66 Pulse Source Pulse Oximeter Temp 98.1 F Temperature Source Temporal Artery Scan Pulse Oximetry 98 Oxygen Delivery Method Room Air Height 5 ft 5 in Weight 213 lb 12.8 oz BMI 35.6 Body Fat % 43.9 Body Fat Mass 93.6 Fat Free Mass 120.0 Visceral Fat Rating 10.0 Body Water % 40.2 Body Water Mass 86.0 Muscle Mass/Score 113.8 Basal Metabolic Rate/Score 1,698 Intake Visit Reasons: (OV) PO LSG 11/19/21 Warp Drawer Required: No Allergies aspirin Allergy (Verified 06/07/24 08:34) Swelling Medication List - Last Reconciled 06/07/24 by DEMETRIS Wright lansoprazole 30 mg PO DAILY levonorgestrel (Mirena) intrauterine multivitamin 1 tab PO DAILY HPI Comments Details: This?a?34?yo female who is s/p LSG without hiatal hernia repair on?11/19/[address] Garcia. Presents for 2 year 6 month post op visit. Weight today is 213.8 lb with a BMI of 35.5.? There has been a 163.2 pound weight loss,(initial weight 377 pounds) since starting the program on 06/03/21 reflecting a 43.2% total body weight loss and a weight loss of 106.5 pounds since surgery (operative weight 320.3 pounds) reflecting a 33.2% TBWL since surgery.? She has lost approximately 2.6 lb since her appointment with Dr. Garcia on 03/25/2024 and 4.6 lb since her last appointment with me on 02/17/2024. She is not having any reflux as long as she takes her H2. She was seen in consultation with Dr. Garcia. Her meal plan was changed as her small hiatal hernia was not the issue, it was rather her continued obesity and meal plan structure. Meal plan as discussed with Dr. Garcia: Equate premade shake (4oz of Equate mixed with 4oz low fat unsweetened almond milk, coconut milk or oat milk) at 8-10am and 11am-1pm, lunch at 2pm (4 forks of meat and 4 forks of salad or rice), another Equate shake (4oz of Equate mixed with 4oz low fat unsweetened almond milk, coconut milk or oat milk) at 4pm-6pm, Atkins bar at 7pm-9pm HALF Atkins bar at 10pm-11pm She is not mixing the shake with anything. She is doing a whole shake 8-10 lunch at 12, 4 forks protein and 4 forks salad 1/2 Atkins bar 230-240 another atkins rtd shake at 5-7 Drinking 48-64 oz water, no soda or juice Exercise plan: none PFSH Medical History Morbid obesity ASCUS of cervix with negative high risk HPV Abnormal uterine bleeding (AUB) Obese Prediabetes GERD (gastroesophageal reflux disease) EIN (endometrial intraepithelial neoplasia) Unsatisfactory cervical Papanicolaou smear Vitamin D deficiency Endocervical polyp Vaginitis Abnormal uterine bleeding (AUB) Pre-op evaluation Surgical History S/P laparoscopic sleeve gastrectomy History of hysteroscopy Family History Mother Diabetes Hypertension Seizures Liver problem Amputated left leg ESRD on hemodialysis Father Diabetes Hypertension Liver problem Sister Diabetes Sister Diabetes Sister Diabetes Hypertension Social History Household Members: Spouse Housing: Apartment Are you a primary resident care aide to a significant other at home: No Do you presently have visiting nurse or other home services: No Alcohol intake: current Alcohol intake frequency: holidays/special occasions only Alcohol type: other Patient Tobacco Use Status: Never used Tobacco e-Cigarette/Vaping Use: Never Used Second Hand Smoke Exposure: No service: No Current occupational status: employed 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 Current occupational exposures/hazards: No Sexual orientation: Straight/Heterosexual Gender identity: Female Cognitive needs: No Hearing needs: No Vision needs: No Female Reproductive History Menstrual Age of Menarche: 11 Physical Exam Const General: healthy appearing and no acute distress Resp Effort & Inspection: normal respiratory effort Auscultation: clear to auscultation bilaterally Cardio Rate: regular rate Rhythm: regular rhythm GI Auscultation: normal bowel sounds Extrem General: Yes normal to inspection Assessment & Plan Assessment & Plan (1) S/P laparoscopic sleeve gastrectomy: Comment: 11/19/2021 Code(s): Z98.84 - Bariatric surgery status Category: Surgical Plan: Equate premade shake (4oz of Equate mixed with 4oz low fat 1% milk) at 8-10am and 11am-1pm, lunch at 12pm (4 forks of meat and 4 forks of salad or rice), another Equate shake (4oz of Equate mixed with 4oz low fat 1% milk) at 1pm-3pm, 4-6pm Atkins bar at 7pm-9pm Start exercise, anything, rtc 2 months with goal of 10 pound weight loss
[2024-06-07 08:40] VITALS: BP 108/59; PULSE 66; TEMP 36.7; O2SAT 98; BMI 35.6
== END 2024-06-07 09:03 | disposition home or self-care (01) ==
PROVIDERS: PCP Internal Medicine; Visit Provider Physician Assistant Surgical
DX: E66.812 Obesity, class 2 (principal); Z68.35 Body mass index [BMI] 35.0-35.9, adult; Z90.3 Acquired absence of stomach [part of]; Z98.84 Bariatric surgery status
CPT/HCPCS: 99213; G2211

== ENCOUNTER → 2024-06-07 08:21 | Outpatient (BNVA) | payer OTHER, SELFPAY | PROVIDERS: PCP Internal Medicine; Visit Provider Physician Assistant Surgical | DX: E66.01 Morbid (severe) obesity due to excess calories (principal); Z68.35 Body mass index [BMI] 35.0-35.9, adult; Z90.3 Acquired absence of stomach [part of] | CPT/HCPCS: 99212 ==

== ENCOUNTER → 2024-07-12 10:15 | Outpatient (BNVA) | payer OTHER, SELFPAY | PROVIDERS: PCP Internal Medicine; Visit Provider Obstetrics & Gynecology | DX: Z01.419 Encounter for gynecological examination (general) (routine) without abnormal findings (principal) | CPT/HCPCS: 99395; 99459 ==

== ENCOUNTER 2024-10-26 13:13 | Outpatient (AMB) | payer OTHER, SELFPAY ==
--- NOTE | 2024-10-26 13:26 | MHC.OFFVIS ---
Vital Signs 10/26/24 13:30 Height 5 ft 5 in Weight 215 lb BMI 35.8 BP 110/64 Blood Pressure Location Rt brachial Position Sitting Pulse 66 Pulse Source Pulse Oximeter Pulse Oximetry (%) 97 Oxygen Delivery Method Room Air Intake Visit Reasons: 6 mnth follow up Intake Note: ESTABLISHED PATIENT for GERD mgmt. Recent negative HP testing. CC; Pt denies any GI sx or concerns at this time. Pt comments that PPI is working well for her at this time. Animal Eviscerator Required: No Animal Eviscerator Services: Animal Eviscerator Offered & Declined Allergies aspirin Allergy (Verified 10/26/24 13:34) Swelling HPI HPI 6 mnth follow up: Details: LAST VISIT: Right upper quadrant abdominal pain Steatosis, liver GERD (gastroesophageal reflux disease) Constipation Postprandial abdominal bloating Plan H pylori in the office today, will treat empirically if positive. Allergy and immunology referral high eosinophilic count found in esophagus. Continue lansoprazole. Patient will avoid dietary triggers and late night snacking. Staying upright for minimum 3 hours after meals discussed with patient. Patient will follow-up in the office in 6 months, sooner on as needed basis. She is agreeable to this plan and verbalizes understanding of instructions. She was given the opportunity to ask questions and all questions answered. ? Thank you for allowing me to participate in her care Orders Orders H Pylori Breath Test 04/20/24 K21.9 Referrals Allergy & Immunology Referral K20.0 Medications Discontinued linaclotide Discontinued Reason: Patient no longer taking 145 mcg PO DAILY 30 caps 2RF TODAY'S VISIT Patient is here today for follow-up. Patient reports since last visit she has been doing much better. Reports that lansoprazole has been working. Patient also is avoiding dietary triggers. Patient is not eating late at night. Trying to stay away from fast food. Patient reports that she is moving her bowels, however not always feel like she empties them completely. Try to Linzess in the was too strong, tried Senokot and felt like he was not strong enough. Patient has not tried Dulcolax. He for patient denies melena, hematochezia. Denies any dyspepsia, dysphagia or odynophagia. [facility] Medical History Morbid obesity ASCUS of cervix with negative high risk HPV Abnormal uterine bleeding (AUB) Obese Prediabetes GERD (gastroesophageal reflux disease) EIN (endometrial intraepithelial neoplasia) Unsatisfactory cervical Papanicolaou smear Vitamin D deficiency Endocervical polyp Vaginitis Abnormal uterine bleeding (AUB) Pre-op evaluation Surgical History S/P laparoscopic sleeve gastrectomy History of hysteroscopy Family History Mother Diabetes Hypertension Seizures Liver problem Amputated left leg ESRD on hemodialysis Father Diabetes Hypertension Liver problem Sister Diabetes Sister Diabetes Sister Diabetes Hypertension Social History Household Members: Spouse Housing: Apartment Are you a primary respiratory care instructor to a significant other at home: No Do you presently have visiting nurse or other home services: No Alcohol intake: current Alcohol intake frequency: holidays/special occasions only Alcohol type: other Patient Tobacco Use Status: Never used Tobacco e-Cigarette/Vaping Use: Never Used Second Hand Smoke Exposure: No service: No Current occupational status: employed 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 Current occupational exposures/hazards: No Sexual orientation: Straight/Heterosexual Gender identity: Female Cognitive needs: No Hearing needs: No Vision needs: No Female Reproductive History Menstrual Age of Menarche: 11 Physical Exam Vital Signs: Last Vital Signs Pulse 66 10/26/24 13:30 BP 110/64 10/26/24 13:30 Pulse Ox 97 10/26/24 13:30 Oxygen Delivery Method Room Air 10/26/24 13:30 BMI result Body Mass Index 35.8 Assessment & Plan Assessment & Plan (1) Steatosis, liver: Code(s): K76.0 - Fatty (change of) liver, not elsewhere classified Category: Medical (2) GERD (gastroesophageal reflux disease): Code(s): K21.9 - Gastro-esophageal reflux disease without esophagitis Category: Medical Qualifiers: Esophagitis presence: esophagitis presence not specified Qualified Code(s): K21.9 - Gastro-esophageal reflux disease without esophagitis (3) Constipation: Code(s): K59.00 - Constipation, unspecified Qualifiers: Constipation type: slow transit constipation Qualified Code(s): K59.01 - Slow transit constipation (4) Postprandial abdominal bloating: Code(s): R14.0 - Abdominal distension (gaseous) Plan Patient will continue lansoprazole. Avoid dietary triggers and late night snacking. Staying upright for minimal 3 hours after meals discussed with patient. Patient will start taking Dulcolax every evening. Increase fluid intake and activity to increase bowel motility. Patient will follow-up in 6 months. She will call our office if she will have any GI concerning symptoms. She is agreeable to this plan and verbalizes understanding of instructions. She was given the opportunity to ask questions and all questions answered. Thank you for allowing me to participate in her care she Medications: New bisacodyl (Dulcolax (bisacodyl)) 10 mg (2 x 5 mg) PO BEDTIME 180 tabs 4RF Refilled lansoprazole 30 mg PO DAILY 90 caps 2RF K21.9 - Gastro-esophageal reflux disease without esophagitis Coding Level of Care Code Est Pt Level 3 (33812) Diagnoses Steatosis, liver K76.0 Gastroesophageal reflux disease, unspecified whether esophagitis present K21.9 Esophagitis presence: esophagitis presence not specified Slow transit constipation K59.01 Constipation type: slow transit constipation Postprandial abdominal bloating R14.0 Time Spent (min) 25 Comment 15 minutes spent with patient and additional 10 minutes spent reviewing her records
--- OUTSIDE RECORDS SUMMARY | 2024-10-26 13:27 | XMS_ITS | Encounter Summary ---
Author Organization [employer] Address [address] [place] [address] Care Team Providers Care Inside Sales Person Name Role Phone Samara Ladd MD Primary Care Provide r Reason for Visit * Reason Onset Date Comments Referral 01/02/2023 Encounter Details Date Type Department Care Team ([facility] st Contact Info) Description 01/02/2023 Telephone [facility] MEDICINE [address] [place] [id number] Samara Ladd MD [address] [place] [address] Referral Social History Tobacco Use Types Packs/Day Years Used Date Smoking Tobacco: Never Smokeless Tobacco: Never Depression Answer Date Recorded Patient Health Questionnaire-9 Score 2 11/21/2022 Depression Answer Date Recorded Patient Health Questionnaire-2 Score 1 11/21/2022 Comments Unknown Sex and Gender Information Value Date Recorded Sex Assigned at Female 08/15/2022 9:50 AM EST Legal Sex Female 9:48 AM EST Gender Identity Other 11/19/2022 9:09 AM EDT Sexual Orientation Choose not to disclose 2022 9:09 AM EDT documented as of this encounter Miscellaneous Notes * Telephone Encounter - Girish Butler - 01/02/2023 11:07 AM EDT Tc from pt requesting status of referral made on 12/25/2022 for Weight Management and Sports Official. Please contact pt at [phone] documented in this encounter Plan of Treatment Not on file documented as of this encounter Visit Diagnoses Not on filedocumented in this encounter Additional Health Concerns Assessment Noted Time PHQ-9 Depression Total Score: 2 11/22/19 23 11:29 AM EDT documented as of this encounter Care Teams Inside Sales Person Relationship Specialty Start Date End Date Samara Ladd MD [address] [place] [address] PCP - General Internal Medicine 08/15/22 documented as of this encounter
--- OUTSIDE RECORDS SUMMARY | 2024-10-26 13:27 | XMS_ITS | Clinical Summary ---
Author Organization [facility] Address [address] [place] [address] Phone Care Team Providers Care Communications Tower Technician Name Role Phone Unavailable Primary Care Provider Unavailabl e Allergies Active Allergy Reactions Criticality Noted Date Comments Aspirin 09/27/2021 Medications levonorgestreL (Mirena) 21 mcg/24hr (up to 8 yrs) 52 mg IUD by Intrauterine route. 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 Encounters Date Type Department Care Team Description 08/25/2024 10:20 AM EDT Office Visit [facility] [address] [facility] [address] [place] [address] Carlee Hernandez MD Endometrial intraepithelial neoplasia (EIN) (Primary Dx) from Last 3 Months Surgical History Surgery Date Site/Laterality Comments HYSTEROSCOPY 07/19/2021 PROCEDURE: ND HYSTEROSCOPY BX ENDOMETRIUM&/POLYPC W/WO D&C Medical History Medical History Date Comments Obesity DX:Obesity Social History Tobacco Use Types Packs/Day Years Used Date Smoking Tobacco: Never Smokeless Tobacco: Never Comments Unknown Sex and Gender Information Value Date Recorded Sex Assigned at Not on file Legal Sex Female 8:50 AM EST Gender Identity Not on file Sexual Orientation Not on file Obstetrics History Last Filed Vital Signs Vital Sign Reading Time Taken Comments Blood Pressure 115/71 08/25/2024 10:38 AM EDT Pulse 62 08/25/2024 10:38 AM EDT Temperature 36.3 ??C (97.4 ??F) 08/25/2024 10:38 AM E DT Respiratory Rate - - Oxygen Saturation - - Inhaled Oxygen Concentration - - Weight 99.8 kg (220 lb) 08/25/2024 10:38 AM EDT Height 165.1 cm (5' 5 ) 08/25/2024 10:38 AM EDT Body Mass Index 36.61 08/25/2024 10:38 AM EDT Plan of Treatment Upcoming Encounters Date Type Department Care Team (Late st Contact Info) Description 02/28/2025 9:20 AM EDT Office Visit [facility] [address] [facility] [facility] [address] [place] [phone] Carlee Hernandez MD [address] [place] [address] Health Maintenance Due Date Last Done Comments DTaP,Tdap,and Td Vaccines (1 - Tdap) 2009 Hepatitis B Vaccines (1 of 3 - 19+ 3-dose series) 2009 Hepatitis C Screening 05/25/2022 Social Influencers of Health Screening 05/25/2022 Depression Screening 11/22/2023 11/21/2022 COVID-19 Vaccine (1 - 2023-2 5 season) 2024 Cervical Cancer Screening: P ap Smear 07/25/2024 07/25/2021 Influenza Vaccine (Season Ended) 2025 Cholesterol Screening (Lipid Panel) 11/22/2027 11/21/2022 HIV Screening Completed 11/21/2022 HIB Vaccines Aged Out No longer eligi ble based on patient's age to complete this topic HPV Vaccines Aged Out No longer eligi ble based on patient's age to complete this topic Hepatitis A Vaccines Aged Out No long er eligible based on patient's age to complete this topic IPV Vaccines Aged Out No longer eligi ble based on patient's age to complete this topic MMR Vaccines Aged Out No longer eligi ble based on patient's age to complete this topic Meningococcal ACWY Vaccine Aged Out N o longer eligible based on patient's age to complete this topic Meningococcal B Vaccine Aged Out No l onger eligible based on patient's age to complete this topic Pneumococcal Vaccine: Pediat rics (0 to 5 Years) and At-Risk Patients (6 to 64 Years) Aged Out No longer eligi ble based on patient's age to complete this topic RSV Immunization Patients Un redd 20 months Aged Out No longer eligible b ased on patient's age to complete this topic Varicella Vaccines Aged Out No longer eligible based on patient's age to complete this topic Procedures Procedure Name Priority Date/Time Associated Diagnosis Comments PAP SMEAR Routine 07/25/2021 from Last 3 Months or Most Recently Relevant to Health Maintenance Results * Pap Smear (07/25/2021) Pap smear abstracted, no interpretation Historical Provider MD HEALTH MAINTENANCE Final Result from Last 3 Months or Most Recently Relevant to Health Maintenance
--- OUTSIDE RECORDS SUMMARY | 2024-10-26 13:27 | XMS_ITS | Clinical Summary ---
Author Organization [employer] Address [address] [facility] [address] [place] [address] Care Team Providers Care Ceramic Mold Designer Name Role Phone Samara Ladd MD Primary Care Provide r Allergies Active Allergy Reactions Criticality Noted Date Comments Aspirin Itching,Swelling Medium 11/21/2022 Medications ketoconazole (NIZOral) 2 % shampoo 04/16/2022 Active cyclobenzaprine (Flexeril) 10 MG tablet Take 1 tablet (10 mg) by mouth 3 times daily for 10 days. 30 tablet 04/29/2023 Active pantoprazole (ProtoNix) 40 MG EC tabletIndication s:Gastroesophage al reflux disease without esophagitis TAKE 1 TABLET (40 MG) BY MOUTH BEFORE BREAKFAST. DO NOT CRUSH, CHEW, OR SPLIT. 90 tablet 06/10/2023 Active Active Problems Problem Noted Date Diagnosed Date Chronic left shoulder pain 08/04/2023 Chronic bilateral low back pain without sciatica 08/04/2023 Class 2 obesity due to excess calories in adult 12/25/2022 Assessment & Plan (12/25/2022 10:01 AM EDT): Today extensive discussion was done about life style modifications I advise healthy diet (low calorie) and cardiovascular exercise Gastroesophageal reflux disease without esophagi tis 11/21/2022 Assessment & Plan (12/25/2022 10:01 AM EDT): I advise patient to avoid NSAIDs, spicy and acid food, I advise to eat at the same time every day, I advise to elevate the head of the bed and take medications as prescribe Assessment & Plan (11/21/2022 10:24 AM EDT): I advise patient to avoid NSAIDs, spicy and acid food, I advise to eat at the same time every day, I advise to elevate the head of the bed and take medications as prescribe Health care maintenance 11/21/2022 Left otitis media 11/21/2022 Excessive cerumen in ear canal, left 11/21/2022 Social History Tobacco Use Types Packs/Day Years Used Date Smoking Tobacco: Never Smokeless Tobacco: Never Tobacco Cessation:Counseling Given: Not Answered Depression Answer Date Recorded Patient Health Questionnaire-9 Score 2 11/21/2022 Housing Stability Answer Date Recorded What is your housing situation today? I have aldomathew meredith 04/14/[address] you li ve. Do you have problems with any of the following? None of the above 04/14/2023 Food Insecurity Answer Date Recorded Within the past 12 months, y ou worried that your food would run out before you got money to buy more: Never True 04/14/2023 Within the past 12 months,th e food you bought just didn't last and you didn't have enough money to get more: Never True Transportation Answer Date Recorded In the past 12 months, has l ack of transportation kept you from medical appts, meetings, work or from getting things needed for daily living? No 04/14/2023 Utilities Answer Date Recorded In the past 12 months, has t he electric, gas, oil or water company threatened to shut off services in your home? No 04/14/2023 Depression Answer Date Recorded Patient Health Questionnaire-2 Score 1 11/21/2022 Comments Unknown Sex and Gender Information Value Date Recorded Sex Assigned at Female 08/15/2022 9:50 AM EST Legal Sex Female 9:48 AM EST Gender Identity Other 11/19/2022 9:09 AM EDT Sexual Orientation Choose not to disclose 2022 9:09 AM EDT Last Filed Vital Signs Vital Sign Reading Time Taken Comments Blood Pressure 113/63 04/29/2023 2:09 PM EST Pulse 74 04/29/2023 2:09 PM EST Temperature 37.1 ??C (98.8 ??F) 04/29/2023 2:09 PM ES T Respiratory Rate 18 04/29/2023 2:09 PM EST Oxygen Saturation 98% 04/29/2023 2:09 PM EST Inhaled Oxygen Concentration - - Weight 105 kg (231 lb 3.2 oz) 04/29/2023 2:09 PM EST Height 165.1 cm (5' 5 ) 04/29/2023 2:09 PM EST Body Mass Index 38.47 04/29/2023 2:09 PM EST Plan of Treatment Health Maintenance Due Date Last Done Comments Alcohol/Substance Use Screening 2002 Family Planning (PISQ) 2005 DTaP/Tdap/Td Vaccines (1 - Tdap) 2009 Hepatitis B Vaccines (1 of 3 - 19+ 3-dose series) 2009 Pap Smear 2011 Cervical Cancer Screening 01/24/2020 HPV/Cotest 01/24/2020 Depression Screening 11/22/2023 11/21/2022, 11/21/2022 SDOH Screening 11/22/2023 11/21/2022 Tobacco Screening 11/22/2023 11/21/2022 COVID-19 Vaccine (1 - 2023-2 5 season) 2024 Influenza Vaccine (#1) 2024 Lipid Panel 11/22/2027 11/21/2022 Zoster Vaccines (1 of 2) 01/24/2040 RSV Patients and Patients Aged 60 years or older (1 - 1-dose 75+ series) 2065 HIV Screening Completed 11/21/2022 Hepatitis C Screening Completed 11/21/2022 HIB Vaccines Aged Out [...] patient's age to complete this topic Meningococcal Vaccine Aged Out No louann ryland eligible based on patient's age to complete this topic Pneumococcal Vaccine: Pediatrics (0 to 5 Years) and At-Risk Patients (6 to 49) Years) Aged Out No longer eligible b ased on patient's age to complete this topic RSV under 20 months Aged Out No longe r eligible based on patient's age to complete this topic Rotavirus Vaccines Aged Out No longer eligible based on patient's age to complete this topic Procedures Procedure Name Priority Date/Time Associated Diagnosis Comments HEPATITIS C VIRAL RNA, QUANTITATIVE, REAL-TIME PCR Routine 11/21/2022 10:06 AM EDT Health care maintenance HIV 1/2 ANTIGEN/ANTIBODY, FOURTH GENERATION W/RFL Routine 11/21/2022 10:06 AM EDT Health care maintenance LIPID PANEL, STANDARD Routine 11/21/2022 10:06 AM EDT Health care maintenance from Last 3 Months or Most Recently Relevant to Health Maintenance Results * Hepatitis C Viral RNA, Quantitative, Real-Time PCR (11/21/2022 10:06 AM EDT) Pathologist [facility] HCV RNA, QN Real Time PCR <15 NOT DETECTED NOT DETECTED IU/mL [facility] HCV RNA QN Real Time PCR <1.18 NOT DETECTED NOT DETECTED Log IU/mL [facility] Comment: This test was performed using Real-Time Polymerase Chain Reaction. Reportable Range: 15 IU/mL to 100,000,000 IU/mL (1.18 Log IU/mL to 8.00 Log IU/mL). ?? The analytical performance characteristics of this assay have been determined by [employer] [facility]. The modifications have not been cleared or approved by the FDA. This assay has been validated pursuant to the CLIA regulations and is used for clinical purposes. ?? For more information on this test, go to: http://education.MaxLinear/faq/RQJ06d1 (This link is being provided for informational/ educational purposes only.) 11/21/2022 10:0 6 AM EDT 11/21/2022 10:06 AM EDT Narrative [facility] - 11/24/2022 2:41 PM EDT FASTING:YES FASTING: YES us Samara Jorge MD LAB BLOOD ORDERABLES Final Result [facility] [address], [place] [address] [facility] [place] [facility] [address] [place] [address] * HIV-1/2 Antigen and Antibodies, Fourth Generation, with Reflexes (11/21/2022 10:06 AM EDT) [facility] HIV Antigen/Antibody, 4th Generation NON-REAC TIVE NON-REAC TIVE [facility] [place] [facility] Comment: HIV-1 antigen and HIV-1/HIV-2 antibodies were not detected. There is no laboratory evidence of HIV infection. PLEASE NOTE: This information has been disclosed to you from records whose confidentiality may be protected by state law. ??If your state requires such protection, then the state law prohibits you from making any further disclosure of the information without the specific written consent of the person to whom it pertains, or as otherwise permitted by law. A general authorization for the release of medical or other information is NOT sufficient for this purpose. ?? For additional information please refer to http://education.MaxLinear/faq/OKV872 (This link is being provided for informational/ educational purposes only.) The performance of this assay has not been clinically validated in patients less than 2 years old. Blood Venous blood specimen / Unknown 11/21/2022 10:06 AM EDT 11/21/2022 10:06 AM EDT Narrative [facility] - 11/24/2022 2:41 PM EDT FASTING:YES FASTING: YES us Samara Jorge MD LAB BLOOD ORDERABLES Final Result [facility] [address], [place] [address] [facility] [place] [facility] [address] [place] [address] * (ABNORMAL) Lipid Panel, Standard (11/21/2022 10:06 AM EDT) [facility] Cholesterol, Total 166 <200 mg/dL [facility] [place] [facility] HDL Cholesterol 44(L) > OR = 50 mg/dL [facility] [place] [facility] Triglycerides 81 <150 mg/dL [facility] [place] [facility] LDL Cholesterol 105(H) mg/dL (calc) [facility] [place] [facility] Comment: Reference range: <100 Desirable range <100 mg/dL for primary prevention; ?? <70 mg/dL for patients with CHD or diabetic patients with > or = 2 CHD risk factors. LDL-C is now calculated using the Tanmay calculation, which is a validated novel method providing better accuracy than the Friedewald equation in the estimation of LDL-C. Wilfrdeo SS et al. OLIVIER. 2013;310(19): 1856-4674 (http://education.Klooff/faq/IZR492) Chol/HDLC Ratio 3.8 <5.0 (calc) [facility] Non-HDL Cholesterol 122 <130 mg/dL (calc) [facility] Comment: For patients with diabetes plus 1 major ASCVD risk factor, treating to a non-HDL-C goal of <100 mg/dL (LDL-C of <70 mg/dL) is considered a therapeutic option. Blood Venous blood specimen / Unknown 11/21/2022 10:06 AM EDT 11/21/2022 10:06 AM EDT Narrative [facility] - 11/24/2022 2:41 PM EDT FASTING:YES FASTING: YES Samara Jorge MD LAB BLOOD ORDERABLES Final Result [facility] [address], [place] [address] [facility] [place] [facility] [address] [place] [address] from Last 3 Months or Most Recently Relevant to Health Maintenance [place] [address] [place] [address] [facility] Care Teams Ceramic Mold Designer Relationship Specialty Start Date End Date Samara Ladd MD [address] [place] [id number] PCP - General Internal Medicine 08/15/22
--- OUTSIDE RECORDS SUMMARY | 2024-10-26 13:27 | XMS_ITS | Encounter Summary ---
Author Organization [employer] Address [address] [facility] 7t [place] [address] Care Team Providers Care Manager Wound Care Name Role Phone Samara Ladd MD Primary Care Provide r Reason for Visit * Reason Onset Date Comments Nurse Triage 04/28/2023 Encounter Details Date Type Department Care Team ([facility] Contact Info) Description 04/28/2023 Telephone [facility] MEDICINE [address] [place] [address] [phone] Samara Ladd MD [address] [place], [place] [phone] Nurse Triage Social History Tobacco Use Types Packs/Day Years [...] encounter Miscellaneous Notes * Telephone Encounter - Ella Hill RN - 04/28/2023 3:18 PM EST Triage call with [employer] [place] [id number] Pt reports left shoulder pain. Denies injury. Pain started a week ago, dull, aching pain. Pt reports some weakness in the arm at the end of the day the arm feels heavy . Pt reports unable to lift left arm to shoulder level completely. Pain occurs when neck is bent toward left shoulder. Pt is not taking medication for pain, advised can take tylenol/ibuprofen if needed. Pt reports ice doesn't helpand has been starting to apply heat especially with hot shower. Apt with CATHLEEN Osborn 04/29/23 @ 200pm insurance is verified as active prior to booking. Protocol Used: Shoulder Pain (Adult) Protocol-Based Disposition: See in Office or Video Visit within 3 Days Video visit not offered Positive Triage Questions: * Moderate pain (e.g., interferes with normal activities) and present > 3 days * Pain is worsened or caused by bending the neck * All higher-acuity triage questions were negative Care Advice Discussed: * Reassurance and Education - Shoulder Pain * Pain Medicines * Pain Medicines - Extra Notes and Warnings * Reasons To Call Back - Chest pain or difficulty breathing occurs - Moderate pain (e.g., interferes with normal activities) lasts over 3 days - Mild pain lasts over 7 days - You become worse * Use a Cold Pack for Pain * Use Heat After 48 Hours for Pain * Telephone Encounter - Yuli Franco - 04/28/2023 2:26 PM EST Symptom: Shoulder Pain - Not From Injury Outcome: Schedule an urgent appointment (within 1 hour) or talk to a nurse or provider soon Reason: Can't use the shoulder normally The caller accepted this outcome Danish Speaker documented in this encounter Plan of Treatment Not on file documented as of this encounter Visit Diagnoses Not on filedocumented in this encounter Additional Health Concerns Assessment Noted Time PHQ-9 Depression Total Score: 2 11/22/19 11:29 AM EDT documented as of this encounter Care Teams Manager Wound Care Relationship Specialty Start Date End Date Samara Ladd MD [address] [place] [address] PCP - General Internal Medicine 08/15/22 documented as of this encounter
--- OUTSIDE RECORDS SUMMARY | 2024-10-26 13:27 | XMS_ITS | Encounter Summary ---
Author Organization [employer] Address [address] [facility] 7t [place] [address] Care Team Providers Care Dairy Consultant Name Role Phone Samara Ladd MD Primary Care Provide r Reason for Visit * Reason Onset Date Comments Med Refill 11/02/2023 Encounter Details Date Type Department Care Team ([facility] Contact Info) Description 11/02/2023 Telephone [facility]INE [address] [place] [address] Samara Ladd MD [address] [place], [place] [phone] Med Refill Social History Tobacco Use Types Packs/Day Years Used Date Smoking Tobacco: Never Smokeless Tobacco: Never Depression Answer Date Recorded Patient Health Questionnaire-9 Score 2 11/21/2022 Housing Stability Answer Date Recorded What is your housing situation today? I have aldo meredith 04/14/[address] you [...] encounter Miscellaneous Notes * Telephone Encounter - Carmina Cali LPN - 11/02/2023 2:18 PM EDT Medication is not pended as last prescribed 04/29/23 and unclear if for short term * Telephone Encounter - Yuli Franco - 11/02/2023 2:13 PM EDT TC from pt requesting medication refill. Medications needing refill : cyclobenzaprine (Flexeril) 10 MG tablet To be sent to: [facility]/pharmacy [address] [place] [address] - [address] [place] [address] documented in this encounter Plan of Treatment Not on file documented as of this encounter Visit Diagnoses Not on filedocumented in this encounter Additional Health Concerns Assessment Noted Time PHQ-9 Depression Total Score: 2 11/22/19 11:29 AM EDT documented as of this encounter Care Teams Dairy Consultant Relationship Specialty Start Date End Date Samara Ladd MD [address] [place] [address] PCP - General Internal Medicine 08/15/22 documented as of this encounter
[2024-10-26 13:30] VITALS: BP 110/64; PULSE 66; O2SAT 97; BMI 35.8
== END 2024-10-26 14:04 | disposition home or self-care (01) ==
PROVIDERS: PCP Internal Medicine; Visit Provider Nurse Practitioner Family
DX: K76.0 Fatty (change of) liver, not elsewhere classified (principal); K21.9 Gastro-esophageal reflux disease without esophagitis; K59.01 Slow transit constipation; R14.0 Abdominal distension (gaseous)
CPT/HCPCS: 99213

== ENCOUNTER → 2024-10-26 13:13 | Outpatient (BNVA) | payer OTHER, SELFPAY | PROVIDERS: PCP Internal Medicine; Visit Provider Nurse Practitioner Family | DX: K76.0 Fatty (change of) liver, not elsewhere classified (principal); K21.9 Gastro-esophageal reflux disease without esophagitis; K59.01 Slow transit constipation; R14.0 Abdominal distension (gaseous) | CPT/HCPCS: 99212 ==

== ENCOUNTER 2024-11-01 09:10 | Outpatient (AMB) | payer OTHER, SELFPAY ==
--- NOTE | 2024-11-01 09:16 | A.OFFVIS_ITS ---
Vital Signs 11/01/24 09:30 Height 5 ft 5 in Weight 215 lb BMI 35.8 Handedness Right Intake Visit Reasons: OV-Pain in the left shoulder-follow up Intake Note: Thee is a 34 year old right hand dominant female who presents today for a follow up of her left shoulder pain, last injection 01/11/24 (80). Patient reports going pain. She mentions that her clavicle tends to pop out of place when her pain gets worse. Allergies aspirin Allergy (Verified 11/01/24 09:29) Swelling HPI HPI OV-Pain in the left shoulder-follow up: Details: Ms. Sabiha Arana is a 34-year-old right-hand dominant female who presents to the office today for follow-up of left shoulder pain. She was last seen on 01/11/2024 with the patient was administered a cortisone injection into the left shoulder. She reports that this helped her greatly. She continues to have pain after repetitive motion. She is looking to repeat cortisone injection today. [facility] Medical History Morbid obesity ASCUS of cervix with negative high risk HPV Abnormal uterine bleeding (AUB) Obese Prediabetes GERD (gastroesophageal reflux disease) EIN (endometrial intraepithelial neoplasia) Unsatisfactory cervical Papanicolaou smear Vitamin D deficiency Endocervical polyp Vaginitis Abnormal uterine bleeding (AUB) Pre-op evaluation Surgical History S/P laparoscopic sleeve gastrectomy History of hysteroscopy Family History Mother Diabetes Hypertension Seizures Liver problem Amputated left leg ESRD on hemodialysis Father Diabetes Hypertension Liver problem Sister Diabetes Sister Diabetes Sister Diabetes Hypertension Social History Household Members: Spouse Housing: Apartment Are you a primary women's health care nurse practitioner to a significant other at home: No Do you presently have visiting nurse or other home services: No Alcohol intake: current Alcohol intake frequency: holidays/special occasions only Alcohol type: other Patient Tobacco Use Status: Never used Tobacco e-Cigarette/Vaping Use: Never Used Second Hand Smoke Exposure: No service: No Current occupational status: employed 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 Able to perform full range of motion in all planes. 5/5 strength with empty can. Negative drop arm. NVI. Office Procedures AMB Joint Injection/Aspiration Joint Injection/Aspiration Primary Site: left shoulder Prep: site was prepped using aseptic technique, ethochloride spray was applied and injection warnings given Injected: 80 mg of, DepoMedrol, with 8 mL of (2% plain lidocaine) and in the subcromial space Approach Used: posterolateral Procedure: The patient tolerated the procedure well, but had some pain with the injection and there was some relief with the local anesthesia Coding 87250 - Large joint Procedure code (CPT) selection complete Assessment & Plan Assessment & Plan (1) Painful arc syndrome of left shoulder: Code(s): M75.102 - Unspecified rotator cuff tear or rupture of left shoulder, not specified as traumatic Category: Medical Plan Ms. Sabiha Arana is a 34-year-old right-hand dominant female who presents to the office today for follow-up of left shoulder pain. She was last seen on 01/11/2024 with the patient was administered a cortisone injection into the left shoulder. She reports that this helped her greatly. She continues to have pain after repetitive motion. She is looking to repeat cortisone injection today. The patient was offered a cortisone injection in the left shoulder with 80 mg of DepoMedrol. The patient was explained the risks, benefits, and alternatives to receiving this injection. After receiving consent for the injection, the patient had the procedure done while in the office today. The patient tolerated the procedure well with no complications. Follow-up will be PRN, or sooner if needed Coding Level of Care Code Est Pt Level 3 (86070) Diagnoses Painful arc syndrome of left shoulder M75.102 CPT Codes Coding - 40722 Large joint: 63769 - Large joint ([id number])
[2024-11-01 09:30] VITALS: BMI 35.8
--- OUTSIDE RECORDS SUMMARY | 2024-11-01 09:51 | XMS_ITS | Clinical Summary ---
Author Organization [employer] Address [address] [facility] 7t [place] [address] Care Team Providers Care Battalion Chief Name Role Phone Samara Ladd MD Primary [...] Health Maintenance Due Date Last Done Comments Disability Screening 1990 Alcohol/Substance Use Screening 2002 Family Planning (PISQ) [...] Real-Time PCR (11/21/2022 10:06 AM EDT) Pathologist [facility] [place] HCV RNA, QN Real Time PCR <15 NOT DETECTED NOT DETECTED IU/mL [employer] [place] [employer] HCV RNA QN Real Time PCR <1.18 NOT DETECTED NOT DETECTED Log IU/mL [facility] Comment: This test was performed using Real-Time Polymerase Chain Reaction. Reportable Range: 15 IU/mL to 100,000,000 IU/mL (1.18 Log IU/mL to 8.00 Log IU/mL). ?? The analytical performance characteristics of this assay have been determined by [employer]. The modifications have not been cleared or approved by the FDA. This assay has been validated pursuant to the CLIA regulations and is used for clinical purposes. ?? For more information on this test, go to: http://education.[employer].Studio/faq/GYD91p7 (This link is being provided for informational/ educational purposes only.) 11/21/2022 10:0 6 AM EDT 11/21/2022 10:06 AM EDT Narrative [facility] - 11/24/2022 2:41 PM EDT FASTING:YES FASTING: YES Samara Jorge MD LAB BLOOD ORDERABLES Final Result [facility] [address], [place] [address] [facility] [place] [employer] [address] [place] [address] * HIV-1/2 Antigen and Antibodies, Fourth Generation, with Reflexes (11/21/2022 10:06 AM EDT) Pathologist [facility] [place] HIV Antigen/Antibody, 4th Generation NON-REAC TIVE NON-REAC TIVE [employer] [place] [employer] Comment: HIV-1 antigen and HIV-1/HIV-2 antibodies were [...] ?? For additional information please refer to http://education.Yoolink/faq/UCB291 (This link is being provided for informational/ educational purposes only.) The performance of this assay has not been clinically validated in patients less than 2 years old. Blood Venous blood specimen / Unknown 11/21/2022 10:06 AM EDT 11/21/2022 10:06 AM EDT [facility] - 11/24/2022 2:41 PM EDT FASTING:YES FASTING: YES Samara Jorge MD LAB BLOOD ORDERABLES Final Result [facility] [address], [place] [address] DearJane [place] [employer] [address] [place] [address] * (ABNORMAL) Lipid Panel, Standard (11/21/2022 10:06 AM EDT) [facility] Cholesterol, Total 166 <200 mg/dL DearJane [place] [employer] HDL Cholesterol 44(L) > OR = 50 mg/dL [facility] [place] [employer] Triglycerides 81 <150 mg/dL [facility] [place] [employer] LDL Cholesterol 105(H) mg/dL (calc) [employer] [place] [employer] Comment: Reference range: <100 Desirable range <100 mg/dL for primary prevention; ?? <70 mg/dL for patients with CHD or diabetic patients with > or = 2 CHD risk factors. LDL-C is now calculated using the Tanmay calculation, which is a validated novel method providing better accuracy than the Friedewald equation in the estimation of LDL-C. Wilfredo NORRIS et al. OLIVIER. 2013;310(19): 4495-1319 (http://education.SimpleRegistry/faq/VWF188) Chol/HDLC Ratio 3.8 <5.0 (calc) [facility] [place] [employer] Non-HDL Cholesterol 122 <130 mg/dL (calc) [facility] [place] [employer] Comment: For patients with diabetes plus 1 major ASCVD risk factor, treating to a non-HDL-C goal of <100 mg/dL (LDL-C of <70 mg/dL) is considered a therapeutic option. Blood Venous blood specimen / Unknown 11/21/2022 10:06 AM EDT 11/21/2022 10:06 AM EDT Narrative [facility] - 11/24/2022 2:41 PM EDT FASTING:YES FASTING: YES Samara Jorge MD LAB BLOOD ORDERABLES Final Result [facility] [address], [place] [address] [employer] [place] [employer] [address] [place] [address] from Last 3 Months or Most Recently Relevant to Health Maintenance Insurance [facility] Care Teams Battalion Chief Relationship Specialty Start Date End Date Samara Ladd MD [address] [place] [phone] PCP - General Internal Medicine 08/15/22
--- OUTSIDE RECORDS SUMMARY | 2024-11-01 09:51 | XMS_ITS | Encounter Summary ---
Author Organization [employer] Address [address] [facility] 7t [place] [address] Care Team Providers Care Fiberglass Grinder Name Role Phone Samara Ladd MD Primary Care Provide r Reason for Visit * Reason Onset Date Comments Nurse Triage 04/28/2023 Encounter Details Date Type Department Care Team ([facility] Contact Info) Description 04/28/2023 Telephone [facility] MEDICINE [address] [place] [address] Samara Ladd MD [address] [place], [place] [phone] Nurse Triage Social History Tobacco Use Types [...] 04/28/2023 3:18 PM EST Triage call with [employer] Planer Hand ID [id number] Pt reports left shoulder pain. Denies injury. [...] tylenol/ibuprofen if needed. Pt reports ice doesn't help and has been starting to apply heat especially with hot shower. Apt with CATHLEEN Osborn 04/29/23 @ 200pminsurance is verified as active prior to booking. [...] shoulder normally The caller accepted this outcome Welsh Speaker documented in this encounter Plan of Treatment Not on file documented as of this encounter Visit Diagnoses Not on filedocumented in this encounter Additional Health Concerns Assessment Noted Time PHQ-9 Depression Total Score: 2 11/22/19 11:29 AM EDT documented as of this encounter Care Teams Fiberglass Grinder Relationship Specialty Start Date End Date Samara Ladd MD [address] [place] [address] PCP - General Internal Medicine 08/15/22 documented as of this encounter
--- OUTSIDE RECORDS SUMMARY | 2024-11-01 09:51 | XMS_ITS | Encounter Summary ---
Author Organization [employer] Address [address] [facility] 7[address] [place] [address] Care Team Providers Care Medical Office Secretary Name Role Phone Samara Ladd MD Primary Care Provide r Reason for Visit * Reason Onset Date Comments Med Refill 11/02/2023 Encounter Details Date Type Department Care Team ([facility] Contact Info) Description 11/02/2023 Telephone [facility] MEDICINE [address] [place] [address] Samara Ladd MD [address] [place] [address] Med Refill Social History Tobacco Use Types [...] 10 MG tablet To be sent to: [facility]/pharmacy [address] [place] [address] documented in this encounter Plan of Treatment Not on file documented as of this encounter Visit Diagnoses Not on filedocumented in this encounter Additional Health Concerns Assessment Noted Time PHQ-9 Depression Total Score: 2 11/22/19 11:29 AM EDT documented as of this encounter Care Teams Medical Office Secretary Relationship Specialty Start Date End Date Samara Ladd MD [address] [place] [address] PCP - General Internal Medicine 08/15/22 documented as of this encounter
--- OUTSIDE RECORDS SUMMARY | 2024-11-01 09:51 | XMS_ITS | Encounter Summary ---
Author Organization [employer] Address [address] [place] [address] [address], [place] [address] Care Team Providers Care Perioperative Assistant Name Role Phone Samara Ladd MD Primary Care Provide r Reason for Visit * Reason Onset Date Comments Referral 01/02/2023 Encounter Details Date Type Department Care Team ([facility] st Contact Info) Description 01/02/[address] [facility] MEDICINE [address] [place] [phone] Samara Ladd MD [address] [place] [address] Referral Social History Tobacco Use Types Packs/Day [...] made on 12/25/2022 for Weight Management and Phytochemistry Professor. Please contact pt at [phone] documented in this encounter Plan of Treatment Not on file documented as of this encounter Visit Diagnoses Not on filedocumented in this encounter Additional Health Concerns Assessment Noted Time PHQ-9 Depression Total Score: 2 11/22/19 23 11:29 AM EDT documented as of this encounter Care Teams Perioperative Assistant Relationship Specialty Start Date End Date Samara Ladd MD [address] [place] [address] PCP - General Internal Medicine 08/15/22 documented as of this encounter
--- OUTSIDE RECORDS SUMMARY | 2024-11-01 09:51 | XMS_ITS | Clinical Summary ---
Author Organization [facility] Address [address] [place] [address] Phone Care Team Providers Care Rent Collector Name Role Phone Unavailable Primary Care Provider Unavailabl e Allergies Active Allergy Reactions Criticality Noted Date Comments Aspirin 09/27/2021 Medications levonorgestreL (Mirena) 21 mcg/24hr (up to 8 yrs) 52 mg IUD by Intrauterine route. 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 Encounters Date Type Department Care Team Description 08/25/2024 10:20 AM EDT Office Visit [address] [place] [address] Carlee Hernandez MD Endometrial intraepithelial neoplasia (EIN) (Primary Dx) from Last 3 Months Surgical History Surgery Date Site/Laterality Comments HYSTEROSCOPY 07/19/2021 PROCEDURE: [place] HYSTEROSCOPY BX ENDOMETRIUM&/POLYPC W/WO D&C Medical History [...] AM EDT Office Visit [facility] [address] [place] [phone] Carlee Hernandez MD [address] [facility] [address] [place] [address] Health Maintenance Due Date Last Done Comments [...]
== END 2024-11-01 10:19 | disposition home or self-care (01) ==
LOC: HO.HOS 09:11
PROVIDERS: PCP Internal Medicine; Visit Provider Physician Assistant
DX: M75.102 Unspecified rotator cuff tear or rupture of left shoulder, not specified as traumatic (principal)
CPT/HCPCS: 20610; 99213

== ENCOUNTER → 2024-11-01 09:10 | Outpatient (BNVA) | payer OTHER, SELFPAY | PROVIDERS: PCP Internal Medicine; Visit Provider Physician Assistant | DX: M75.102 Unspecified rotator cuff tear or rupture of left shoulder, not specified as traumatic (principal) | CPT/HCPCS: 20610; 99212; J1010; J2003 ==

== ENCOUNTER 2024-12-27 19:28 | Emergency (ER) | payer OTHER, SELFPAY ==
--- NOTE | ~2024-12-27 | XR_ITS ---
CLINICAL HISTORY: acute on chronic pain 3 view left shoulder Comparison: 01/11/2024 Findings: Bones intact. No dislocations. No significant loss of joint space or osteophytes. No erosions. No radiopaque foreign body. IMPRESSION: 1. No acute findings This document has been electronically signed by: Giancarlo Kat MD on 12/27/2024 20:49:43
[2024-12-27 19:37] VITALS: BP 133/64; PULSE 64; RESP 17; TEMP 36.2; O2SAT 99; BMI 38.0
--- NOTE | 2024-12-27 19:38 | ED.UPPEXIN ---
HPI - Extremity Injury (Upper) General Chief Complaint: Extremity Injury, Upper Stated Complaint: left shoulder pain Time Seen by Provider: 12/27/24 22:34 Source: patient, RN notes reviewed and other (Significant other at bedside) Mode of arrival: ambulatory Limitations: no limitations History of Present Illness ED Provider: Shena Moran PA-C HPI narrative: Patient presents to the emergency department today for evaluation of acute on chronic left-sided shoulder and neck pain. It started about 2 years ago. She has gone to physical therapy before in the past but did not have a good experience with it so stopped. Every now and then depending on how she sleeps or if she moves her head a certain way she feels the pain. She has been using kinesiology tape which does not always help she gets good relief with hot water as well as pain patches. Sometimes her significant other massages her and helps a little bit but the pain has still been persistent she denies any falls or trauma no paresthesias or weakness of her limbs. She denies any headache or dizziness and no fevers or chills or rashes to the area. Patient also saw orthopedics and they injected her left shoulder but did nothing for her neck. Related Data Home Medications ?Medication ?Instructions ?Recorded ?Confirmed levonorgestrel (Mirena) intrauterine 05/05/22 01/03/25 multivitamin 1 tab PO DAILY 06/02/23 01/03/25 Previous Rx's ?Medication ?Instructions ?Recorded lansoprazole 30 mg capsule,delayed 30 mg PO DAILY #90 caps 10/26/24 release cyclobenzaprine 10 mg tablet 10 mg PO BEDTIME PRN muscle spasm 12/27/24 #7 tabs lidocaine 5 % topical patch 1 patch topical DAILY pain #30 ea 12/27/24 meloxicam 15 mg tablet 15 mg PO DAILY #14 tabs 12/27/24 levocetirizine 5 mg tablet 5 mg PO DAILY PRN allergy symptoms 01/03/25 90 days #90 tabs Allergies Allergy/AdvReac Type Severity Reaction Status Date / Time aspirin Allergy Swelling Verified 01/03/25 08:38 Review of Systems Review of Systems: Yes all other systems are reviewed and are negative PMFSH Past Medical History Attestation statement: The following information was validated with the patient. Source: old records reviewed and nursing notes reviewed Medical History Morbid obesity ASCUS of cervix with negative high risk HPV Abnormal uterine bleeding (AUB) Obese Prediabetes GERD (gastroesophageal reflux disease) EIN (endometrial intraepithelial neoplasia) Unsatisfactory cervical Papanicolaou smear Vitamin D deficiency Endocervical polyp Vaginitis Abnormal uterine bleeding (AUB) Pre-op evaluation Surgical History S/P laparoscopic sleeve gastrectomy History of hysteroscopy Family History Family History Mother Diabetes Hypertension Seizures Liver problem Amputated left leg ESRD on hemodialysis Father Diabetes Hypertension Liver problem Sister Diabetes Sister Diabetes Sister Diabetes Hypertension Social History Social History Household Members: Spouse Housing: Apartment Are you a primary family member caretaker to a significant other at home: No Do you presently have visiting nurse or other home services: No Alcohol intake: current Alcohol intake frequency: holidays/special occasions only Alcohol type: other Patient Tobacco Use Status: Never used Tobacco e-Cigarette/Vaping Use: Never Used Second Hand Smoke Exposure: No service: No Current occupational status: employed 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 No septic or ill-appearing. Vitals reviewed normal, PMH/Social and Surgical hx reviewed including allergies and current medications. - reviewed for prior visits here Eyes: EOMI ENMT: moist oral mucosa Neck: trachea midline Cardiovascular: peripheral perfusion normal, Regular heart rate Respiratory: no respiratory distress Abdomen: nondistended Extremities: warm and moving without difficulty unless otherwise detailed in physical exam if applicable. Psych: Cooperative Neuro: Alert and oriented. Psych: Cooperative Neuro: Alert and oriented. Neck: Other: Patient with panel like strings of her sternocleidomastoid muscle on the left side she has limited range of motion Neck: Yes no lymphadenopathy and Yes no meningeal signs Neuro: General: no meningeal signs Course Course Course Narrative: 12/27/241937 DEMETRIS Quezada This is a Rapid Medical Examination (RME) performed by Pankaj Ward PA-C in triage. Full HPI, ROS, assessment and treatment plan per primary provider in the Main ED. Hx: 34 yo F here w/ acute on chronic L shoulder pain. keishas w/ ortho for this, has had steroid injections which help for a month . reports acute on chronic pain x2 days now. Plan: xrs Medical Decision Making Medical Decision Making [facility] Narrative: The patient has a neck strain and will be discharged home. The patient is currently stable in the UC without evidence of neurovascular compromise. The patient was negative by NEXUS criteria; therefore, no imaging was performed/ordered of the neck.and other spinal emergencies. Given the complaint of left-sided shoulder pain in triage a left shoulder was ordered empirically and was unremarkable. The patient will be discharged with strict return precautions and will follow up with the primary MD within 24-48 hours for further evaluation. Differential Diagnosis Differential Diagnoses: The differential diagnosis associated with the presentation includes Left shoulder impingement syndrome fracture or dislocation soft tissue skin infection Admission/Observation Consideration of admission/observation: Escalation of care including admission/observation considered Patient would have been admitted to the hospital had her work up had any findings where hospital admission was appropriate and her clinical presentation warranted hospital admission. Independent Interpretation I performed an independent interpretation of an: Plain X-Ray Interpretation: No bony abnormality or acute fracture Radiology Impression Discussion of test interpretation with radiology: I have reviewed the radiologist's reading. Radiologist Impression: No acute findings Independent Historian Clinical information obtained from an independent historian. History obtained from or confirmed by: Other (Significant other) Tests considered The following testing was considered but not selected: Would have considered a CT of the cervical spine had her nexus criteria warranted this but no criteria met therefore deferred Prescription Management I considered prescription management with: Pain Medication Chronic Conditions Patient?s care impacted by: Other (Obesity) Social Determinants Patient?s care significantly limited by Social Determinants of Health including: Other Social Determinant of Health Discharge Plan Discharge Clinical Impression: Musculoskeletal disorder involving sternocleidomastoid, Cervical paraspinous muscle spasm Patient Disposition: Home, Self-Care Additional Instructions: You were evaluated for your neck and shoulder pain. You had imaging done of your for left shoulder which shows no dislocations or bony abnormalities. Your physical exam showing a spasm of your sternocleidomastoid muscle which appears to be acute on chronic. We demonstrated some stretches for you to do we will address your acute discomfort. Your history and physical exam is most consistent with a cervical/trapezius muscle strain. Physical exam is reassuring that there is no neurovascular damage and exam is not consistent with thoracic outlet syndrome. Rest: Avoid sudden movements of your neck, heavy lifting, twisting and turning.?? Use ice to the area for the first 24-48 hours, then you can use moist heat to the area (use a warm moist cloth or heating pad? to the area for 20 minutes at a time, 3-4 times a day).?? Gentle massage to tight muscles can help.? Using a sportscream like [employer] or Buzz Referrals can also help. Use Motrin/Advil (ibuprofen) 600 mg four times a day for the next 5 days, then every 6 to 8 hours? as needed for pain. Take ibuprofen with food to avoid stomach irritation.? In addition, you can use Tylenol (acetaminophen) 650 mg every 6 hrs as needed for pain.? Do not take more than 3000 mg in one day! Risks and side effects of cyclobenzaprine/muscle relaxers have been discussed.? Do not drive or operate heavy machinery within 8 hours of taking this medication as it may cause drowsiness. Follow up with your PCP in the next few days to be re-evaluated.?? Return to the ER if you develop a severe headache, numbness or weakness in your arms or legs, dizziness, change in your vision, nausea, vomiting, or other alarming symptoms should occur. PERFORM THE FOLLOWING STRETCHES, PLEASE YOU TUBE THE NAME OF THE THEM IF YOU FORGOT HOW I DEMONSTRATED THEM. SEATED GENTLE UPPER TRAPEZIUS 2X A DAY 3 SETS HOLD FOR 30 SECONDS GENTLE LEVATOR SCAPULAE STRETCH 2X A DAY, 3 SETS HOLD FOR 30 SECONDS SUPINE CHIN TUCK 1X A DAY 30X SEATED SCAPULAR RETRACTION 1X D DAY, 30 X OPEN BOOK CHEST STRETCH ON TOWEL ROLL 2X A DAY 3 SETS HOLD FOR 30 SECONDS SIDELYING THORACIC LUMBAR ROTATION 2X A DAY 30 X Prescriptions: New lidocaine 5 % adhesive patch,medicated 1 patch topical DAILY Qty: 30 0RF Rx Instructions: leave on most painful area for up to 12 hrs cyclobenzaprine 10 mg tablet 10 mg PO BEDTIME PRN (Reason: muscle spasm) Qty: 7 0RF meloxicam 15 mg tablet 15 mg PO DAILY Qty: 14 0RF No Action Mirena 20 mcg/24 hours (8 yrs) 52 mg intrauterine device intrauterine multivitamin Tablet 1 tab PO DAILY levocetirizine 5 mg tablet 5 mg PO DAILY PRN (Reason: allergy symptoms) 90 Days Qty: 90 0RF lansoprazole 30 mg capsule,delayed release(DR/EC) 30 mg PO DAILY Qty: 90 2RF Referrals: [facility] Orthopedic Surgeons [Provider Group] Referral Note: Chronic spasm and strain of the left-sided sternocleidomastoid muscle Migdalia Sweeney MD [Primary Care Provider, Internal Medicine] Referral Note: Follow-up ED visit Stand Alone Forms: Work/School Release Interventions: ED Discharge Assessment Last Done: 12/27/24 23:25 Discharge Date/Time: 12/27/24 23:27 Print Language: Bermudian
--- OUTSIDE RECORDS SUMMARY | 2024-12-27 22:22 | XMS_ITS | Encounter Summary ---
Author Organization [employer] Address [address] [place] [address], [place] [address] Care Team Providers Care Sausage Inspector Name Role Phone Samara Ladd MD Primary Care Provide r Reason for Visit * Reason Onset Date Comments Referral 01/02/2023 Encounter Details Date Type Department Care Team ([facility] st Contact Info) Description 01/02/2023 Telephone [facility] MEDICINE [address] [place] [phone] Samara Ladd MD [address] [place] [address] Referral Social History Tobacco Use Types Packs/Day [...] made on 12/25/2022 for Weight Management and Placement Coordinator. Please contact pt at [phone] documented in this encounter Plan of Treatment Not on file documented as of this encounter Visit Diagnoses Not on filedocumented in this encounter Additional Health Concerns Assessment Noted Time PHQ-9 Depression Total Score: 2 11/22/19 23 11:29 AM EDT documented as of this encounter Care Teams Sausage Inspector Relationship Specialty Start Date End Date Samara Ladd MD [address] [place] [address] PCP - General Internal Medicine 08/15/22 documented as of this encounter
--- OUTSIDE RECORDS SUMMARY | 2024-12-27 22:22 | XMS_ITS | Clinical Summary ---
Author Organization [facility] Address [address] [place] [address] Phone Care Team Providers Care Certified Prosthetist Name Role Phone Unavailable Primary Care Provider Unavailabl e Allergies Active Allergy Reactions Criticality Noted Date Comments Aspirin 09/27/2021 Medications levonorgestreL (Mirena) 21 mcg/24hr (up to 8 yrs) 52 mg IUD by Intrauterine route. Active Active Problems Problem Noted Date Diagnosed Date Endometrial intraepithelial neoplasia (EIN) 08/13 Surgical History Surgery Date Site/Laterality Comments HYSTEROSCOPY [...] 62 08/25/2024 10:38 AM EDT Temperature 36.3 C (97.4 F) 08/25/2024 10:38 AM EDT Respiratory Rate - - Oxygen Saturation - [...] AM EDT Office Visit [facility] [address] [facility] [address] [place] [phone] Carlee Hernandez MD [address] [place] [address] Health Maintenance Due Date Last Done Comments DTaP,Tdap,and Td Vaccines (1 - Tdap) 2009 Hepatitis B Vaccines (1 of 3 - 19+ 3-dose series) 2009 Hepatitis C Screening 05/25/2022 Social Influencers of Health Screening 05/25/2022 Depression Screening 11/22/2023 11/21/2022 COVID-19 Vaccine ( - 2023-2 5 season) 2024 Cervical Cancer Screening: P ap Smear 07/25/2024 07/25/2021 Influenza Vaccine (#1) 2025 Cholesterol Screening (Lipid Panel) 11/22/2027 11/21/2022 [...] 5 Years) and At-Risk Patients (6 to 49 Years) Aged Out No longer eligi ble based on patient's age to complete this topic RSV Immunization Patients Un redd 20 months Aged Out No longer eligible b ased on patient's age to complete this topic Varicella Vaccines Aged Out No longer eligible based on patient's age to complete this topic Procedures Procedure Name Priority Date/Time Associated Diagnosis Comments HM PAP SMEAR Routine 07/25/2021 from Last 3 Months or Most Recently Relevant to Health Maintenance Results * Hm Pap Smear (07/25/2021) Pap smear abstracted, no interpretation Historical Provider MD HEALTH MAINTENANCE Final Result from Last 3 Months or Most Recently Relevant to Health Maintenance
[2024-12-27 23:25] VITALS: BP 105/71; PULSE 54; RESP 18; TEMP 36.8; O2SAT 96
== END 2024-12-27 23:27 | disposition home or self-care (01) ==
PROVIDERS: Emergency Provider Emergency Medicine Emergency Medical Services; PCP Internal Medicine
DX: Q68.0 Congenital deformity of sternocleidomastoid muscle (principal); M25.512 Pain in left shoulder; M54.2 Cervicalgia; M62.838 Other muscle spasm; M79.89 Other specified soft tissue disorders
CPT/HCPCS: 73030; 99282; 99283

== ENCOUNTER → 2024-12-27 19:39 | Outpatient (BNV) | payer OTHER, SELFPAY | PROVIDERS: PCP Internal Medicine; Visit Provider Radiology Vascular & Interventional Radiology | DX: M25.512 Pain in left shoulder (principal) | CPT/HCPCS: 73030 ==

== ENCOUNTER 2025-01-03 08:27 | Outpatient (AMB) | payer OTHER, SELFPAY ==
--- NOTE | 2025-01-03 08:31 | MHC.PC.OV ---
Vital Signs 01/03/25 08:33 Height 5 ft 5 in Weight 225 lb BMI 37.4 BP 110/70 Blood Pressure Location Lt brachial Position Sitting Intake Visit Reasons: annual exam Intake Note: Patient here for an annual physical exam Tooling Manager Required: No Accompanied by: Self / Same As Patient Allergies aspirin Allergy (Verified 01/03/25 08:38) Swelling Medication List - Last Reconciled 01/03/25 by Migdalia Vaughan MD cyclobenzaprine 10 mg PO BEDTIME PRN lansoprazole 30 mg PO DAILY levonorgestrel (Mirena) intrauterine lidocaine 5% 1 patch topical DAILY meloxicam 15 mg PO DAILY multivitamin 1 tab PO DAILY Tobacco use date assessed: 01/03/25 Dental Screening Dental Screen Date: 01/03/25 Did you have a dental visit in the last 12 months?: No Did you have a dental problem in the last 6 months where you did not have access to dental care?: No Was dental information given to patient?: Patient has dentist HPI HPI Comments History of Present Illness Details The patient is a 34-year-old female presenting for an annual physical exam. She has a known allergy to aspirin, which causes swelling, and she uses Flexeril, Lansoprazole, meloxicam, and lidocaine patches as needed for various conditions. She also takes multivitamins regularly. In terms of surgical history, she underwent a gastric sleeve procedure in 2021 and a hysteroscopy performed by Dr. Lanza, a silk finisher, also in 2021. Her family history is significant for diabetes, with both her mother and father having from complications related to the disease. She denies smoking and reports consuming alcohol very infrequently, describing it as one in a million. She denies any history of depression or anxiety and reports no symptoms such as chest pain, dyspnea, fever, or cough. The patient has not had a tetanus vaccination recently and declined to receive one during this visit. She reports experiencing constipation. - Annual physical exam conducted - Pap smear with negative HPV result in 2022 - Discussion on tetanus vaccination, declined by patient [facility] Medical History (Updated 01/03/25 @ 08:49 by Migdalia Vaughan MD) Morbid obesity ASCUS of cervix with negative high risk HPV Abnormal uterine bleeding (AUB) Obese Prediabetes GERD (gastroesophageal reflux disease) EIN (endometrial intraepithelial neoplasia) Unsatisfactory cervical Papanicolaou smear Vitamin D deficiency Endocervical polyp Vaginitis Abnormal uterine bleeding (AUB) Pre-op evaluation Surgical History S/P laparoscopic sleeve gastrectomy History of hysteroscopy Family History Mother Diabetes Hypertension Seizures Liver problem Amputated left leg ESRD on hemodialysis Father Diabetes Hypertension Liver problem Sister Diabetes Sister Diabetes Sister Diabetes Hypertension Social History Household Members: Spouse Housing: Apartment Are you a primary childcare center administrator to a significant other at home: No Do you presently have visiting nurse or other home services: No Alcohol intake: current Alcohol intake frequency: holidays/special occasions only Alcohol type: other Patient Tobacco Use Status: Never used Tobacco e-Cigarette/Vaping Use: Never Used Second Hand Smoke Exposure: No service: No Current occupational status: employed 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 1. Little interest or pleasure in doing things: not at all 2. Feeling down, depressed, or hopeless: not at all 3. Trouble falling or staying asleep, or sleeping too much: not at all 4. Feeling tired or having little energy: several days 5. Poor appetite or overeating: not at all 6. Feeling bad about yourself - or that you are a failure or have let yourself or your family down: not at all 7. Trouble concentrating on things, such as reading the newspaper or watching television: not at all 8. Moving or speaking so slowly that other people could have noticed. Or the opposite - being so fidgety or restless that you have been moving around a lot more than usual: not at all 9. Thoughts that you would be better off or of hurting yourself in some way: not at all Total score: 1 Depression Screening Interpretation: Negative Depression Screening Done: Yes 37516 - PHQ-9 Billing: Yes Source: Developed by Drs. Bhupendra Donovan, Fany Jernigan, Channing Chacon and colleagues, with an educational taylor from [employer]. Thrive Questionnaire Date Thrive assessed: 12/27/24 I am a: Patient What is your living situation today?: I have a steady place to live Within the past 12 months, did the food you bought not last and you didn't have the money to get more?: Never true Within the past 12 months, did you worry whether your food would run out before you got money to buy more?: Never true Do you have trouble paying for medicines?: No Do you have trouble getting transportation to medical appointments?: No Do you have trouble paying your heating and electricity bill?: No Do you have trouble taking care of your child, family member or friend?: No Do you have trouble with day-to-day activities such as bathing, preparing meals, shopping, managing finances, etc.?: No Are you currently unemployed and looking for a job?: No Are you interested in more education?: No Please select the resources that you would like help with: None Currently or been in a relationship where the following occur: No concerns reported THRIVE Score: 0 AUDIT C Alcohol Use Questionnaire (AUDIT-C) 1. How often do you have a drink containing alcohol?: Never Total Score: 0 Score Reviewed/Action Taken: No ELBA-7 AMB Questionnaire ELBA-7 Date ELBA - 7 assessed: 01/03/25 Feeling nervous, anxious, or on edge: 0 = Not at all Not being able to stop or control worryin = Not at all Worrying too much about different things: 0 = Not at all Trouble relaxin = Not at all Being so restless that it is hard to sit still: 0 = Not at all Becoming easily annoyed or irritable: 0 = Not at all Feeling afraid as if something awful might happen: 0 = Not at all Total ELBA-7 score (0-4 normal; 5-9 mild; 10-14 moderate; 15-21 severe): 0 Source: Developed by Drs. Bhupendra Donovan, Fany Jernigan, Channing Chacon and colleagues, with an educational taylor from [employer]. ELBA-7 Assessment Billing ELBA-7 Assessment Tool: ELBA-7 Assessment 91812 Review of Systems Const All systems reviewed & are unremarkable except as noted in HPI and below Card Denies chest pain at rest, Denies chest pain with activity, Denies edema, Denies irregular heart rhythm, Denies claudication, Denies dyspnea, Denies dyspnea on exertion, Denies orthopnea, Denies paroxysmal nocturnal dyspnea and Denies slow heart rate Resp Denies cough, Denies dyspnea and Denies dyspnea on exertion GI Denies abdominal pain, Denies change in bowel habits, Denies excessive flatus, Denies nausea and Denies vomiting Denies urinary incontinence, Denies urinary hesitancy and Denies urinary urgency Musc Denies abnormal gait, Denies atrophy, Denies deformity and Denies limited range of motion Skin/Breast Denies bleeding lesions, Denies changing lesions and Denies rash Neuro Denies abnormal gait and Denies lack of coordination Physical exam (Primary Care) Vital Signs: Last Vital Signs BP 110/70 01/03/25 08:33 BMI result Body Mass Index 37.4 BMI Assessment/Plan discussion: High BMI High, discussed plan: lifestyle, weight reduction, dietary and physical activity Tobacco/Smoking Status: Tobacco use Status Tobacco use date assessed 12/30/23 12/30/23 15:51 Patient Tobacco Use Status Never used Tobacco 03/17/24 09:39 e-Cigarette/Vaping Use Never Used 12/30/23 15:51 Depression Screening Interpretation: Negative Thrive Assessment: Date of Thrive Assessment Date Thrive assessed 12/27/24 12/27/24 13:25 Currently or been in a relationship where the following occur: No concerns reported [facility] Head: Yes normal to inspection, Yes normocephalic and Yes atraumatic Ears: external ears normal Eyes General: appearance normal, both eyes and all related structures Eyelids: Yes eyelids normal Conjunctivae: conjunctivae normal Neck Neck: Yes normal visual inspection and Yes supple Resp Effort & Inspection: normal respiratory effort Auscultation: clear to auscultation bilaterally Cardio Jugular venous distension: no JVD Rate: regular rate Rhythm: regular rhythm Heart sounds: S1 normal heart sound present and S2 normal heart sound present GI Inspection: Yes normal to inspection Palpation (GI): Soft to palpation and nontender Auscultation: normal bowel sounds Skin General skin exam: no rashes or lesions noted Neuro General: no focal motor deficits Extrem General: Yes full ROM Psych Appearance: grossly normal Coding Level of Care Code Est Pt Level 3 (53441) Est Pt Prev Care 18-39y(68452) Diagnoses Physical exam Z00.00 Seasonal allergies J30.2 Additional Codes PHQ-9 - 33546 - PHQ-9 Billing: Yes ([id number]) ELBA-7 Assessment Billing - ELBA-7 Assessment Tool: ELBA-7 Assessment 96064 ([id number]) Time Spent (min) 32 Assessment & Plan Assessment & Plan (1) Physical exam: Code(s): Z00.00 - Encounter for general adult medical examination without abnormal findings Category: Medical (2) Seasonal allergies: Code(s): J30.2 - Other seasonal allergic rhinitis Category: Medical Plan The patient will continue with her current medications, including Flexeril, Lansoprazole, meloxicam, and lidocaine patches as needed. She is advised to maintain regular follow-ups for her gastric sleeve surgery and to monitor her nutritional intake to prevent constipation. Given her family history of diabetes, it is important to monitor her blood glucose levels regularly, although she currently does not have diabetes. The patient declined the tetanus vaccination during this visit but should consider updating it in the future. Patient was informed and verbally consented to the use of an ambient scribe for clinic note documentation during this visit. During the visit, we discussed the importance of maintaining her current medication regimen and the need for regular follow-ups for her gastric sleeve surgery. We also talked about her family history of diabetes and the importance of monitoring her blood glucose levels. The patient was informed about the tetanus vaccination, which she declined at this time, but was advised to consider it in the future. Orders: Orders Lipid Panel Today Z00.00 - Encounter for general adult medical examination without abnormal findings Comprehensive Tiro. Panel Fast Today Z00.00 - Encounter for general adult medical examination without abnormal findings Thyroid Stimulating Hormone Today E66.9 - Obesity, unspecified, Z68.37 - Body mass index [BMI] 37.0-37.9, adult Complete Blood Count Auto Diff Today E66.9 - Obesity, unspecified, Z68.37 - Body mass index [BMI] 37.0-37.9, adult Medications: New levocetirizine 5 mg PO DAILY PRN 90 tabs 0RF allergy symptoms 90 days J30.2 - Other seasonal allergic rhinitis Patient Instructions: - Continue taking prescribed medications as needed. - Follow up regularly for gastric sleeve surgery and monitor nutritional intake. - Monitor blood glucose levels regularly due to family history of diabetes. - Consider updating tetanus vaccination in the future.
[2025-01-03 08:33] VITALS: BP 110/70; BMI 37.4
--- OUTSIDE RECORDS SUMMARY | 2025-01-03 08:43 | XMS_ITS | Encounter Summary ---
Author Organization [employer] Address [address] [place] [address] [address] [address] Care Team Providers Care Street Railway Line Installer Name Role Phone Samara Ladd MD Primary Care Provide r Reason for Visit * Reason Onset Date Comments Referral 01/02/2023 Encounter Details Date Type Department Care Team ([facility] st Contact Info) Description 01/02/[address] [facility] [address] [place] [phone] Samara Ladd MD [address] [place] [address] Referral Social History Tobacco Use Types Packs/Day [...] made on 12/25/2022 for Weight Management and Cnc Mill Set Up Operator. Please contact pt at [phone] documented in this encounter Plan of Treatment Not on file documented as of this encounter Visit Diagnoses Not on filedocumented in this encounter Additional Health Concerns Assessment Noted Time PHQ-9 Depression Total Score: 2 11/22/19 23 11:29 AM EDT documented as of this encounter Care Teams Street Railway Line Installer Relationship Specialty Start Date End Date Samara Ladd MD [address] [place] [address] PCP - General Internal Medicine 08/15/22 documented as of this encounter
--- OUTSIDE RECORDS SUMMARY | 2025-01-03 08:43 | XMS_ITS | Clinical Summary ---
Author Organization [facility] Address [address] [place] [address] Phone Care Team Providers Care Extension Service Supervisor Name Role Phone Unavailable Primary Care Provider Unavailabl e Allergies Active Allergy Reactions Criticality Noted Date Comments Aspirin 09/27/2021 Medications levonorgestreL (Mirena) 21 mcg/24hr (up to 8 yrs) 52 mg IUD by Intrauterine route. Active Active Problems Problem Noted Date Diagnosed Date Endometrial intraepithelial neoplasia (EIN) 08/13 Surgical History Surgery Date Site/Laterality Comments HYSTEROSCOPY 07/19/2021 PROCEDURE: [place] HYSTEROSCOPY BX ENDOMETRIUM&/POLYPC W/WO D&C Medical History [...] AM EDT Office Visit [facility] [address] [place] [phone] Carlee Hernandez MD [address] [place] [address] Health Maintenance Due Date Last Done Comments DTaP,Tdap,and Td Vaccines (1 - Tdap) 2009 Hepatitis B Vaccines (1 of 3 - 19+ 3-dose series) 2009 Hepatitis C Screening 05/25/2022 Social Influencers of Health Screening 05/25/2022 COVID-19 Vaccine (1 - 2023-2 5 season) 2024 Depression Screening 06/15/2024 Cervical Cancer Screening: P ap Smear 07/25/2024 [...] Smear (07/25/2021) Pap smear abstracted, no interpretation us Historical Provider MD HEALTH MAINTENANCE Final Result from Last 3 Months or Most Recently Relevant to Health Maintenance
== END 2025-01-03 08:50 | disposition home or self-care (01) ==
LOC: HO.HMCH 08:28
PROVIDERS: PCP Internal Medicine; Visit Provider Internal Medicine
DX: Z00.00 Encounter for general adult medical examination without abnormal findings (principal); J30.2 Other seasonal allergic rhinitis

== ENCOUNTER → 2025-01-03 08:27 | Outpatient (BNVA) | payer OTHER, SELFPAY | PROVIDERS: PCP Internal Medicine; Visit Provider Internal Medicine | DX: Z00.00 Encounter for general adult medical examination without abnormal findings (principal); J30.2 Other seasonal allergic rhinitis; Z83.3 Family history of diabetes mellitus | CPT/HCPCS: 96127; 99212; 99395 ==

== ENCOUNTER 2025-03-31 13:16 | Outpatient (AMB) | payer OTHER, SELFPAY ==
--- NOTE | 2025-03-31 13:22 | A.OFFVIS_ITS ---
Intake Visit Reasons: Inj-Left shoulder injection-last 11/01/24 Intake Note: Thee is a 34 year old right hand dominant female who presents today for a repeat left shoulder injection, last injection 11/01/24. Patient reports her last injection gave her relief. Allergies aspirin Allergy (Verified 03/31/25 13:32) Swelling HPI HPI Inj-Left shoulder injection-last 11/01/24: Details: Ms. Sabiha Arana is a 34-year-old right-hand dominant female who presents to the office today for follow-up of left shoulder pain. She was last seen on 11/01/24 with the patient was administered a cortisone injection into the left shoulder. She reports that this helped her greatly. She continues to have pain after repetitive motion. She is looking to repeat cortisone injection today. [facility] Medical History Morbid obesity ASCUS of cervix with negative high risk HPV Abnormal uterine bleeding (AUB) Obese Prediabetes GERD (gastroesophageal reflux disease) EIN (endometrial intraepithelial neoplasia) Unsatisfactory cervical Papanicolaou smear Vitamin D deficiency Endocervical polyp Vaginitis Abnormal uterine bleeding (AUB) Pre-op evaluation Surgical History S/P laparoscopic sleeve gastrectomy History of hysteroscopy Family History Mother Diabetes Hypertension Seizures Liver problem Amputated left leg ESRD on hemodialysis Father Diabetes Hypertension Liver problem Sister Diabetes Sister Diabetes Sister Diabetes Hypertension Social History Household Members: Spouse Housing: Apartment Are you a primary healthcare marketer to a significant other at home: No Do you presently have visiting nurse or other home services: No Alcohol intake: current Alcohol intake frequency: holidays/special occasions only Alcohol type: other Patient Tobacco Use Status: Never used Tobacco e-Cigarette/Vaping Use: Never Used Second Hand Smoke Exposure: No service: No Current occupational status: employed 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 Able to perform full range of motion in all planes. 5/5 strength with empty can. Negative drop arm. NVI. Office Procedures AMB Joint Injection/Aspiration Joint Injection/Aspiration Primary Site: left shoulder Prep: site was prepped using aseptic technique, ethochloride spray was applied and injection warnings given Injected: 40 mg of, with 3 mL of, 1% plain lidocaine, 0.25% bupivacaine, in the subcromial space and decadron Approach Used: posterolateral Procedure: The patient tolerated the procedure well, but had some pain with the injection and there was some relief with the local anesthesia Coding 96133 - Large joint Procedure code (CPT) selection complete Assessment & Plan Assessment & Plan (1) Painful arc syndrome of left shoulder: Code(s): M75.102 - Unspecified rotator cuff tear or rupture of left shoulder, not specified as traumatic Category: Medical Plan Ms. Sabiha Arana is a 34-year-old right-hand dominant female who presents to the office today for follow-up of left shoulder pain. She was last seen on 11/01/24 with the patient was administered a cortisone injection into the left shoulder. She reports that this helped her greatly. She continues to have pain after repetitive motion. She is looking to repeat cortisone injection today. The patient was offered a cortisone injection in the left shoulder. The patient was explained the risks, benefits, and alternatives to receiving this injection. After receiving consent for the injection, the patient had the procedure done while in the office today. The patient tolerated the procedure well with no complications. Follow-up will be PRN, or sooner if needed. Coding Level of Care Code Est Pt Level 3 (71172) Diagnoses Painful arc syndrome of left shoulder M75.102 CPT Codes Coding - 00687 Large joint: 20045 - Large joint ([id number])
--- OUTSIDE RECORDS SUMMARY | 2025-03-31 15:59 | XMS_ITS | Encounter Summary ---
Author Organization [employer] Address [address] [place] [address] [address] [address] Care Team Providers Care Tray Setter Name Role Phone Samara Ladd MD Primary Care Provide r Reason for Visit * Reason Onset Date Comments Referral 01/02/2023 Encounter Details Date Type Department Care Team ([facility] st Contact Info) Description 01/02/[address] [facility] [address] [place] [phone] Samara Ladd MD [address] [place] [address] Referral Social History Tobacco Use Types Packs/Day [...] made on 12/25/2022 for Weight Management and Master Steam Yacht. Please contact pt at [phone] documented in this encounter Plan of Treatment Not on file documented as of this encounter Visit Diagnoses Not on filedocumented in this encounter Additional Health Concerns Assessment Noted Time PHQ-9 Depression Total Score: 2 11/22/19 23 11:29 AM EDT documented as of this encounter Care Teams Tray Setter Relationship Specialty Start Date End Date Samara Ladd MD [address] [place] [address] PCP - General Internal Medicine 08/15/22 documented as of this encounter
--- OUTSIDE RECORDS SUMMARY | 2025-03-31 15:59 | XMS_ITS | Clinical Summary ---
Author Organization [facility] Address [address] [place] [address] Phone Care Team Providers Care Electronic Scanner Operator Name Role Phone Unavailable Primary Care Provider Unavailabl e Allergies Active Allergy Reactions Criticality Noted Date Comments Aspirin 09/27/2021 Medications levonorgestreL (Mirena) 21 mcg/24hr (up to 8 yrs) 52 mg IUD by Intrauterine route. 3 Active lansoprazole (PREVACID) [address] capsule Take 1 capsule (30 mg total) by mouth 1 (one) time each day. 5 Active spironolactone (ALDACTONE) 100 mg tabletIndicatio ns:Hirsutism Take 1 tablet (100 mg total) by mouth 1 (one) time each day. 90 each 3 5 02/29/20 26 Active Active Problems Problem Noted Date Diagnosed Date Endometrial intraepithelial neoplasia (EIN) 08/13 Obesity Encounters Date Type Department Care Team Description 02/28/2025 9:20 AM EDT Office Visit [facility] [address] [place] [address] Carlee Hernandez MD Endometrial intraepithelial neoplasia (EIN) (Primary Dx); Hirsutism from Last 3 Months Surgical History Surgery Date Site/Laterality Comments HYSTEROSCOPY 07/19/2021 PROCEDURE: [place] HYSTEROSCOPY BX ENDOMETRIUM&/POLYPC W/WO D&C Medical History [...] Sign Reading Time Taken Comments Blood Pressure 104/66 02/28/2025 9:26 AM EDT Pulse 67 02/28/2025 9:26 AM EDT Temperature 36.3 C (97.4 F) 02/28/2025 9:26 AM EDT Respiratory Rate - - Oxygen Saturation - - Inhaled Oxygen Concentration - - Weight 108 kg (238 lb) 02/28/2025 9:26 AM EDT Height 165.1 cm (5' 5 ) 08/25/2024 10:38 AM EDT Body Mass Index 39.61 08/25/2024 10:38 AM EDT Plan of Treatment Upcoming Encounters Date Type Department Care Team (Late st Contact Info) Description 03/01/2026 10:00 AM EDT Office Visit Breast Care [facility] [address] [place] [address] Carlee Hernandez MD [address] [place] [address] Health Maintenance Due Date Last Done Comments DTaP,Tdap,and Td Vaccines (1 - Tdap) 2009 Hepatitis B Vaccines (1 of 3 - 19+ 3-dose series) 2009 HPV Vaccines (1 - 3-dose SCD M series) 2017 Hepatitis C Screening 05/25/2022 Social Influencers of Health Screening 05/25/2022 Depression Screening 06/15/2024 Cervical Cancer Screening: P ap Smear 07/25/2024 07/25/2021 COVID-19 Vaccine (1 - 2023-2 5 season) 2025 Influenza Vaccine (#1) 2025 Cholesterol Screening (Lipid Panel) 11/22/2027 11/21/2022 RSV Immunization Adult Patie nts (1 - 1-dose 75+ series) 2065 HIV Screening Completed 11/21/2022 HIB Vaccines Aged [...] Pap smear abstracted, no interpretation Historical Provider HEALTH MAINTENANCE Final Result from Last 3 Months or Most Recently Relevant to Health Maintenance Insurance [facility]
--- OUTSIDE RECORDS SUMMARY | 2025-03-31 15:59 | XMS_ITS | Encounter Summary ---
Author Organization [employer] Address [address] [place] [address] Care Team Providers Care Flight Data Technician Name Role Phone Samara Ladd MD Primary Care Provide r Reason for Visit * Reason Onset Date Comments Med Refill 11/02/2023 Encounter Details Date Type Department Care Team ([facility] Contact Info) Description 11/02/2023 Telephone [facility] [address] [place] [address] Samara Ladd MD [address] [place] [address] Med Refill Social History Tobacco Use Types [...] 10 MG tablet To be sent to: [facility]/pharmacy [address] [place] [address] documented in this encounter Plan of Treatment Not on file documented as of this encounter Visit Diagnoses Not on filedocumented in this encounter Additional Health Concerns Assessment Noted Time PHQ-9 Depression Total Score: 2 11/22/19 11:29 AM EDT documented as of this encounter Care Teams Flight Data Technician Relationship Specialty Start Date End Date Samara Ladd MD [address] [place] [address] PCP - General Internal Medicine 08/15/22 documented as of this encounter
--- OUTSIDE RECORDS SUMMARY | 2025-03-31 15:59 | XMS_ITS | Clinical Summary ---
Author Organization [employer] Address 75 [facility] 7t [place] [address] Care Team Providers Care Lost Charge Card Clerk Name Role Phone Samara Ladd MD Primary [...] 74 04/29/2023 2:09 PM EST Temperature 37.1 C (98.8 F) 04/29/2023 2:09 PM EST Respiratory Rate 18 04/29/2023 2:09 PM EST [...] Use Screening 2002 Family Planning (PISQ) 2005 HPV Vaccines (1 - 3-dose series) 2005 DTaP/Tdap/Td Vaccines (1 - Tdap) 2009 Hepatitis B Vaccines (1 of 3 - 19+ 3-dose series) 2009 Pap Smear 2011 Cervical Cancer Screening 01/24/2020 HPV/Cotest 01/24/2020 Depression Screening 11/22/2023 11/21/2022, 11/21/2022 SDOH Screening 11/22/2023 11/21/2022 Tobacco Screening 11/22/2023 11/21/2022 COVID-19 Vaccine (1 - 2023-2 5 season) 2025 Influenza Vaccine (#1) 2025 Lipid Panel 11/22/2027 11/21/2022 Zoster Vaccines (1 [...] Years) and At-Risk Patients (6 to 49) Years Aged Out No longer eligible b ased [...] Real-Time PCR (11/21/2022 10:06 AM EDT) Pathologist [facility] HCV RNA, QN Real Time PCR <15 NOT DETECTED NOT DETECTED IU/mL [facility] [place] [employer] HCV RNA QN Real Time PCR <1.18 NOT DETECTED NOT DETECTED Log IU/mL [facility] Comment: This test was performed using Real-Time Polymerase Chain Reaction. Reportable Range: 15 IU/mL to 100,000,000 IU/mL (1.18 Log IU/mL to 8.00 Log IU/mL). The analytical performance characteristics of this assay have been determined by [facility]. The modifications have not been cleared or approved by the FDA. This assay has been validated pursuant to the CLIA regulations and is used for clinical purposes. For more information on this test, go to: http://education.Agility [employer] Solutions/faq/IES63a3 (This link is being provided for informational/ educational purposes only.) 11/21/2022 10:0 6 AM EDT 11/21/2022 10:06 AM EDT Narrative [facility] - 11/24/2022 2:41 PM EDT FASTING:YES FASTING: YES Samara Jorge MD LAB BLOOD ORDERABLES Final Result [facility] [address], [place] [address] [facility] [place] [employer] [facility] [facility] [address] [place] [address] * HIV-1/2 Antigen and Antibodies, Fourth Generation, with Reflexes (11/21/2022 10:06 AM EDT) Pathologist [facility] HIV Antigen/Antibody, 4th Generation NON-REAC TIVE NON-REAC TIVE [facility] [place] [facility] Comment: HIV-1 antigen and HIV-1/HIV-2 antibodies were not detected. There is no laboratory evidence of HIV infection. PLEASE NOTE: This information has been disclosed to you from records whose confidentiality may be protected by state law. If your state requires such protection, then the state law prohibits you from making any further disclosure of the information without the specific written consent of the person to whom it pertains, or as otherwise permitted by law. A general authorization for the release of medical or other information is NOT sufficient for this purpose. For additional information please refer to http://education.[employer]/faq/VIN824 (This link is being provided for informational/ educational purposes only.) The performance of this assay has not been clinically validated in patients less than 2 years old. Blood Venous blood specimen / Unknown 11/21/2022 10:06 AM EDT 11/21/2022 10:06 AM EDT Narrative [facility] - 11/24/2022 2:41 PM EDT FASTING:YES FASTING: YES Samara Jorge MD LAB BLOOD ORDERABLES Final Result [facility] [address], [place] [address] [facility] [place] [facility] [address] [place] [address] * (ABNORMAL) Lipid Panel, Standard (11/21/2022 10:06 AM EDT) [facility] Cholesterol, Total 166 <200 mg/dL [facility] [place] [employer] HDL Cholesterol 44(L) > OR = 50 mg/dL [facility] [place] [facility] Triglycerides 81 <150 mg/dL [facility] LDL Cholesterol 105(H) mg/dL (calc) [facility] [place] [employer] Comment: Reference range: <100 Desirable range <100 mg/dL for primary prevention; <70 mg/dL for patients with CHD or diabetic patients with > or = 2 CHD risk factors. LDL-C is now calculated using the Tanmay calculation, which is a validated novel method providing better accuracy than the Friedewald equation in the estimation of LDL-C. Wilfredo SS et al. OLIVIER. 2013;310(19): 4018-3787 (http://education.ChessCube.com/faq/KUQ827) Chol/HDLC Ratio 3.8 <5.0 (calc) [facility] [employer] Non-HDL Cholesterol 122 <130 mg/dL (calc) [facility] [place] [employer] Comment: For patients with diabetes plus 1 major ASCVD risk factor, treating to a non-HDL-C goal of <100 mg/dL (LDL-C of <70 mg/dL) is considered a therapeutic option. Blood Venous blood specimen / Unknown 11/21/2022 10:06 AM EDT 11/21/2022 10:06 AM EDT Narrative [facility] - 11/24/2022 2:41 PM EDT FASTING:YES FASTING: YES Samara Jorge MD LAB BLOOD ORDERABLES Final Result [facility] [address], [place] [address] [facility] [place] [employer] [address] [place] [address] from Last 3 Months or Most Recently Relevant to Health Maintenance Insurance [facility] Care Teams Lost Charge Card Clerk Relationship Specialty Start Date End Date Samara Ladd MD [address] [place] [id number] PCP - General Internal Medicine 08/15/22
--- OUTSIDE RECORDS SUMMARY | 2025-03-31 15:59 | XMS_ITS | Encounter Summary ---
Author Organization [employer] Address 75 [facility] 7t [place] [address] Care Team Providers Care Fish Checker Name Role Phone Samara Ladd MD Primary Care Provide r Reason for Visit * Reason Onset Date Comments Nurse Triage 04/28/2023 Encounter Details Date Type Department Care Team ([facility] Contact Info) Description 04/28/2023 Telephone [facility] MEDICINE [address] [place] [address] Samara Ladd MD [address] [place], [place] [phone] Nurse Triage Social History Tobacco Use Types [...] 04/28/2023 3:18 PM EST Triage call with [employer] Utility Service Worker ID [id number] Pt reports left shoulder pain. Denies injury. [...] shoulder normally The caller accepted this outcome Algerian Speaker documented in this encounter Plan of Treatment Not on file documented as of this encounter Visit Diagnoses Not on filedocumented in this encounter Additional Health Concerns Assessment Noted Time PHQ-9 Depression Total Score: 2 11/22/19 11:29 AM EDT documented as of this encounter Care Teams Fish Checker Relationship Specialty Start Date End Date Samara Ladd MD [address] [place] [address] PCP - General Internal Medicine 08/15/22 documented as of this encounter
== END 2025-03-31 13:45 | disposition home or self-care (01) ==
LOC: HO.HOS 13:17
PROVIDERS: PCP Internal Medicine; Visit Provider Physician Assistant
DX: M75.102 Unspecified rotator cuff tear or rupture of left shoulder, not specified as traumatic (principal)
CPT/HCPCS: 20610; 99213

== ENCOUNTER → 2025-03-31 13:16 | Outpatient (BNVA) | payer OTHER, SELFPAY | PROVIDERS: PCP Internal Medicine; Visit Provider Physician Assistant | DX: M75.102 Unspecified rotator cuff tear or rupture of left shoulder, not specified as traumatic (principal) | CPT/HCPCS: 20610; 99212; J0665; J1100; J2003 ==

== ENCOUNTER 2025-04-19 08:18 | Outpatient (AMB) | payer OTHER, SELFPAY ==
--- NOTE | 2025-04-19 08:20 | MHC.OFFVIS ---
Vital Signs 04/19/25 08:21 Height 5 ft 5 in Weight 231 lb BMI 38.4 BP 102/76 Blood Pressure Location Rt brachial Position Sitting Pulse 82 Pulse Source Pulse Oximeter Pulse Oximetry (%) 95 Oxygen Delivery Method Room Air Intake Visit Reasons: 6 mo f/u Intake Note: Est pt for mgmt of constipation + GERD. CC; C/O GERD sx persistence at night despite current therapy. Pt states that she is sx free throughout the day; however, she does get woken up at night with reflux. No additional sx or concerns. Mirror Finishing Machine Operator Required: No Accompanied by: Self / Same As Patient Allergies aspirin Allergy (Verified 03/31/25 13:32) Swelling HPI HPI 6 mo f/u: Details: LAST VISIT: Steatosis, liver GERD (gastroesophageal reflux disease) Constipation Postprandial abdominal bloating Plan Patient will continue lansoprazole. Avoid dietary triggers and late night snacking. Staying upright for minimal 3 hours after meals discussed with patient. Patient will start taking Dulcolax every evening. Increase fluid intake and activity to increase bowel motility. Patient will follow-up in 6 months. She will call our office if she will have any GI concerning symptoms. She is agreeable to this plan and verbalizes understanding of instructions. She was given the opportunity to ask questions and all questions answered. ? Thank you for allowing me to participate in her care she New bisacodyl (Dulcolax (bisacodyl)) 10 mg (2 x 5 mg) PO BEDTIME 180 tabs 4RF Refilled lansoprazole 30 mg PO DAILY 90 caps 2RF K21.9 TODAY'S VISIT Patient is here today for follow-up. Patient reports that since she started taking lansoprazole her symptoms throughout the day of acid reflux has subsided. However patient does report that occasionally at night time she will be woken up with reflux. Patient denies eating late at night. Occasional snack in the evening, however does not eat a large meal late. Patient reports that she is trying to eat smaller meals and more often. Denies dyspepsia, dysphagia or odynophagia. Reports that she is moving her bowels, however does not feel like she empties them completely. Currently she is taking Dulcolax, does not feel like it helps. Diet mainly Citizen [place] food. Very little fiber in her diet. Patient denies melena, hematochezia, unintentional weight loss or ribbon like stools. [facility] Medical History Morbid obesity ASCUS of cervix with negative high risk HPV Abnormal uterine bleeding (AUB) Obese Prediabetes GERD (gastroesophageal reflux disease) EIN (endometrial intraepithelial neoplasia) Unsatisfactory cervical Papanicolaou smear Vitamin D deficiency Endocervical polyp Vaginitis Abnormal uterine bleeding (AUB) Pre-op evaluation Surgical History S/P laparoscopic sleeve gastrectomy History of hysteroscopy Family History Mother Diabetes Hypertension Seizures Liver problem Amputated left leg ESRD on hemodialysis Father Diabetes Hypertension Liver problem Sister Diabetes Sister Diabetes Sister Diabetes Hypertension Social History Household Members: Spouse Housing: Apartment Are you a primary animal care attendant to a significant other at home: No Do you presently have visiting nurse or other home services: No Alcohol intake: current Alcohol intake frequency: holidays/special occasions only Alcohol type: other Patient Tobacco Use Status: Never used Tobacco e-Cigarette/Vaping Use: Never Used Second Hand Smoke Exposure: No service: No Current occupational status: employed 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 Current occupational exposures/hazards: No Sexual orientation: Straight/Heterosexual Gender identity: Female Cognitive needs: No Hearing needs: No Vision needs: No Female Reproductive History Menstrual Age of Menarche: 11 Review of Systems Const Denies weight gain and Denies weight loss ENT Reports no additional complaints, Denies dysphagia and Denies odynophagia Card Reports no additional complaints Resp Reports no additional complaints GI Denies abdominal pain, Denies belching, Denies melena, Denies bloating, Denies change in bowel habits, Reports constipation, Denies dysphagia, Denies excessive flatus, Denies dyspepsia, Reports heartburn, Denies diarrhea, Denies loose stools, Denies nausea, Denies odynophagia and Denies vomiting Reports no additional complaints Musc Reports no additional complaints Neuro Reports no additional complaints Psych Reports no additional complaints Endo Reports no additional complaints Physical Exam Vital Signs: Last Vital Signs Pulse 82 04/19/25 08:21 BP 102/76 04/19/25 08:21 Pulse Ox 95 04/19/25 08:21 Oxygen Delivery Method Room Air 04/19/25 08:21 BMI result Body Mass Index 38.4 Const General: healthy appearing, no acute distress and well developed Nutritional Appearance: obese Orientation/consciousness: patient oriented x3 Resp Effort & Inspection: normal respiratory effort, able to speak in complete sentences, no tracheal deviation and symmetric chest movement Auscultation: clear to auscultation bilaterally Cardio Rate: regular rate GI Inspection: Yes normal to inspection, No distended and Yes obesity Palpation (GI): Soft to palpation, not firm, nontender and No hepatosplenomegaly present Auscultation: normal bowel sounds General: Yes no CVA tenderness Back/Spine/Pelvis Back: no CVA tenderness Skin General skin exam: elasticity normal, turgor normal and dry skin Neuro General: patient oriented x3 Psych Appearance: grossly normal Mental Status: mental status grossly normal Assessment & Plan Assessment & Plan (1) GERD (gastroesophageal reflux disease): Code(s): K21.9 - Gastro-esophageal reflux disease without esophagitis Category: Medical Qualifiers: Esophagitis presence: esophagitis presence not specified Qualified Code(s): K21.9 - Gastro-esophageal reflux disease without esophagitis (2) Steatosis, liver: Code(s): K76.0 - Fatty (change of) liver, not elsewhere classified Category: Medical (3) Chronic idiopathic constipation: Code(s): K59.04 - Chronic idiopathic constipation Category: Medical (4) Postprandial abdominal bloating: Code(s): R14.0 - Abdominal distension (gaseous) Plan Discussed with patient avoiding dietary triggers and late night snacking. Staying upright for minimum 3 hours after meals discussed with patient. Patient will continue taking lansoprazole daily. Smaller meals and more often. Patient can start taking famotidine at bedtime. She will start taking Linzess daily. Increase fluid intake and activity to promote bowel motility. Patient will follow-up in 3 months. She will call us if she will have any GI concerning symptoms. She is agreeable to this plan and verbalizes understanding of instructions. She was given the opportunity to ask questions and all questions answered. Thank you for allowing me to participate in her care Medications: New famotidine (Pepcid) 20 mg PO BEDTIME 30 tabs 3RF K21.9 - Gastro-esophageal reflux disease without esophagitis linaclotide (Linzess) 145 mcg PO DAILY 30 caps 4RF K59.04 - Chronic idiopathic constipation Coding Level of Care Code Est Pt Level 4 (72679) Complex visit Add On G2211 Diagnoses Gastroesophageal reflux disease, unspecified whether esophagitis present K21.9 Esophagitis presence: esophagitis presence not specified Steatosis, liver K76.0 Chronic idiopathic constipation K59.04 Postprandial abdominal bloating R14.0 Time Spent (min) 35 Comment 25 minutes spent with patient and additional 10 minutes spent reviewing her records
[2025-04-19 08:21] VITALS: BP 102/76; PULSE 82; O2SAT 95; BMI 38.4
--- OUTSIDE RECORDS SUMMARY | 2025-04-19 08:25 | XMS_ITS | Clinical Summary ---
Author Organization [facility] Address [address] [place] [address] Phone Care Team Providers Care Production Coordinator Name Role Phone Unavailable Primary Care Provider [...] Description 02/28/2025 9:20 AM EDT Office Visit [facility] [address] [place] [address] Carlee Hernandez MD Endometrial intraepithelial neoplasia (EIN) (Primary Dx); Hirsutism from Last 3 Months Surgical History Surgery Date Site/Laterality Comments HYSTEROSCOPY 07/19/2021 PROCEDURE: [place] HYSTEROSCOPY BX ENDOMETRIUM&/POLYPC W/WO D&C Medical History [...] 10:00 AM EDT Office Visit Breast Care [facility] [address] [place] [address] Carlee Hernandez MD [address] [place] [address] Health Maintenance Due Date Last Done Comments [...] Most Recently Relevant to Health Maintenance Insurance [facility]
--- OUTSIDE RECORDS SUMMARY | 2025-04-19 08:25 | XMS_ITS | Encounter Summary ---
Author Organization [employer] Address [address] [place] [address] [address] [address] Care Team Providers Care Insurance Processor Name Role Phone Samara Ladd MD Primary Care Provide r Reason for Visit * Reason Onset Date Comments Referral 01/02/2023 Encounter Details Date Type Department Care Team ([facility] st Contact Info) Description 01/02/2023 Telephone [facility] MEDICINE [address] [place] [phone] Samara Ladd MD [address] [place] [address] Referral Social History Tobacco Use Types Packs/Day [...] made on 12/25/2022 for Weight Management and Tanning Drum Operator. Please contact pt at [phone] documented in this encounter Plan of Treatment Not on file documented as of this encounter Visit Diagnoses Not on filedocumented in this encounter Additional Health Concerns Assessment Noted Time PHQ-9 Depression Total Score: 2 11/22/19 23 11:29 AM EDT documented as of this encounter Care Teams Insurance Processor Relationship Specialty Start Date End Date Samara Ladd MD [address] [place] [address] PCP - General Internal Medicine 08/15/22 documented as of this encounter
--- OUTSIDE RECORDS SUMMARY | 2025-04-19 08:26 | XMS_ITS | Clinical Summary ---
Author Organization [employer] Address [address] [facility] 7t [place] [address] Care Team Providers Care Dipper And Baker Name Role Phone Samara Ladd MD Primary [...] PCR (11/21/2022 10:06 AM EDT) Pathologist [facility] HCV RNA, QN Real Time PCR <15 NOT DETECTED NOT DETECTED IU/mL [facility] [place] [facility] HCV RNA QN Real Time PCR <1.18 NOT DETECTED NOT DETECTED Log IU/mL [facility] Comment: This test was performed using Real-Time Polymerase Chain Reaction. Reportable Range: 15 IU/mL to 100,000,000 IU/mL (1.18 Log IU/mL to 8.00 Log IU/mL). The analytical performance characteristics of this assay have been determined by [facility]. The modifications have not been cleared or approved by the FDA. This assay has been validated pursuant to the CLIA regulations and is used for clinical purposes. For more information on this test, go to: http://education.GenY Medium/faq/ZCD63d4 (This link is being provided for informational/ educational purposes only.) 11/21/2022 10:0 6 AM EDT 11/21/2022 10:06 AM EDT Narrative [facility] - 11/24/2022 2:41 PM EDT FASTING:YES FASTING: YES Samara Jorge MD LAB BLOOD ORDERABLES Final Result [facility] [address], [place] [address] [facility] [place] [facility] [address] [place] [address] * HIV-1/2 Antigen and Antibodies, Fourth Generation, with Reflexes (11/21/2022 10:06 AM EDT) Pathologist [facility] HIV Antigen/Antibody, 4th Generation NON-REAC TIVE NON-REAC TIVE [facility] [place] [facility] Comment: HIV-1 antigen and HIV-1/HIV-2 antibodies were [...] purpose. For additional information please refer to http://education.GenY Medium/faq/YLL103 (This link is being provided for informational/ educational purposes only.) The performance of this assay has not been clinically validated in patients less than 2 years old. Blood Venous blood specimen / Unknown 11/21/2022 10:06 AM EDT 11/21/2022 10:06 AM EDT Narrative [facility] - 11/24/2022 2:41 PM EDT FASTING:YES FASTING: YES Samara Jorge MD LAB BLOOD ORDERABLES Final Result [facility] [address], [place] [address] [facility] [place] [facility] [address] [place] [address] * (ABNORMAL) Lipid Panel, Standard (11/21/2022 10:06 AM EDT) [facility] Cholesterol, Total 166 <200 mg/dL [facility] [place] [facility] HDL Cholesterol 44(L) > OR = 50 mg/dL [facility] [place] [facility] Triglycerides 81 <150 mg/dL [facility] LDL Cholesterol 105(H) mg/dL (calc) [facility] [place] [facility] Comment: Reference range: <100 Desirable range <100 mg/dL for primary prevention; <70 mg/dL for patients with CHD or diabetic patients with > or = 2 CHD risk factors. LDL-C is now calculated using the Tanmay calculation, which is a validated novel method providing better accuracy than the Friedewald equation in the estimation of LDL-C. Wilfredo SS et al. OLIVIER. 2013;310(19): 7017-2735 (http://education.Kitchensurfing/faq/PVI073) Chol/HDLC Ratio 3.8 <5.0 (calc) [facility] [place] [facility] Non-HDL Cholesterol 122 <130 mg/dL (calc) [facility] [place] [facility] Comment: For patients with diabetes plus 1 major ASCVD risk factor, treating to a non-HDL-C goal of <100 mg/dL (LDL-C of <70 mg/dL) is considered a therapeutic option. Blood Venous blood specimen / Unknown 11/21/2022 10:06 AM EDT 11/21/2022 10:06 AM EDT Narrative [facility] - 11/24/2022 2:41 PM EDT FASTING:YES FASTING: YES Samara Jorge MD LAB BLOOD ORDERABLES Final Result [facility] [address], [place] [address] [facility] [place] [facility] [address] [place] [address] from Last 3 Months or Most Recently Relevant to Health Maintenance Insurance [facility] [place] [address] Care Teams Dipper And Baker Relationship Specialty Start Date End Date Samara Ladd MD [address] [place] [address] PCP - General Internal Medicine 08/15/22
--- OUTSIDE RECORDS SUMMARY | 2025-04-19 08:26 | XMS_ITS | Encounter Summary ---
Author Organization [employer] Address 75 [facility] 7t [place] [address] Care Team Providers Care Tool Setter Apprentice Name Role Phone Samara Ladd MD Primary Care Provide r Reason for Visit * Reason Onset Date Comments Med Refill 11/02/2023 Encounter Details Date Type Department Care Team ([facility] Contact Info) Description 11/02/2023 Telephone [facility] MEDICINE [address] [place] [address] Samara Ladd MD [address] [place] [address] Med Refill Social History Tobacco Use Types [...] 10 MG tablet To be sent to: [facility]/pharmacy [address] [place] [address] documented in this encounter Plan of Treatment Not on file documented as of this encounter Visit Diagnoses Not on filedocumented in this encounter Additional Health Concerns Assessment Noted Time PHQ-9 Depression Total Score: 2 11/22/19 11:29 AM EDT documented as of this encounter Care Teams Tool Setter Apprentice Relationship Specialty Start Date End Date Samara Ladd MD [address] [place] [address] PCP - General Internal Medicine 08/15/22 documented as of this encounter
--- OUTSIDE RECORDS SUMMARY | 2025-04-19 08:26 | XMS_ITS | Encounter Summary ---
Author Organization [employer] Address [address] [facility] 7t [place] [address] Care Team Providers Care Gmat Tutor Name Role Phone Samara Ladd MD Primary Care Provide r Reason for Visit * Reason Onset Date Comments Nurse Triage 04/28/2023 Encounter Details Date Type Department Care Team ([facility] Contact Info) Description 04/28/2023 Telephone [facility] MEDICINE [address] [place] [address] Samara Ladd MD [address] [place], [place] [phone] Nurse Triage Social History Tobacco Use Types [...] 04/28/2023 3:18 PM EST Triage call with [employer] Electrician ID [id number] Pt reports left shoulder pain. Denies injury. [...] shoulder normally The caller accepted this outcome [place] Speaker documented in this encounter Plan of Treatment Not on file documented as of this encounter Visit Diagnoses Not on filedocumented in this encounter Additional Health Concerns Assessment Noted Time PHQ-9 Depression Total Score: 2 11/22/19 11:29 AM EDT documented as of this encounter Care Teams Gmat Tutor Relationship Specialty Start Date End Date Samara Ladd MD [address] [place] [address] PCP - General Internal Medicine 08/15/22 documented as of this encounter
== END 2025-04-19 08:52 | disposition home or self-care (01) ==
LOC: HO.HGI 08:18
PROVIDERS: PCP Internal Medicine; Visit Provider Nurse Practitioner Family
DX: K21.9 Gastro-esophageal reflux disease without esophagitis (principal); K76.0 Fatty (change of) liver, not elsewhere classified; K59.04 Chronic idiopathic constipation; R14.0 Abdominal distension (gaseous)
CPT/HCPCS: 99214

== ENCOUNTER → 2025-04-19 08:18 | Outpatient (BNVA) | payer OTHER, SELFPAY | PROVIDERS: PCP Internal Medicine; Visit Provider Nurse Practitioner Family | DX: K21.9 Gastro-esophageal reflux disease without esophagitis (principal); K76.0 Fatty (change of) liver, not elsewhere classified; K59.04 Chronic idiopathic constipation; R14.0 Abdominal distension (gaseous) | CPT/HCPCS: 99212 ==